=== PATIENT | female | born 1965 | race Caucasian/White ===

== ENCOUNTER 2018-11-21 17:04 | Emergency (ER) | payer SELFPAY ==
[2018-11-21] MEDS ORDERED: NA CHLORIDE 0.9% 1,000 ML ONE (17:52)
[2018-11-21 18:03] LABS: Absolute Monocytes 0.5 K/uL (0.1-1.3); Basophils % 0.8 % (0-1.3); Eosinophils % 1.4 % (0-4.4); Hematocrit 48.3 % (36.0-45.0); Lymphocytes % 26.1 % (15.3-44.8); MPV 9.6 fL (7.6-11.3); RBC Red Blood Cell Count 5.24 M/uL (3.86-4.86)
[2018-11-21 18:06] LABS: Protime INR 0.96
--- NOTE | 2018-11-21 18:11 | RAD REPORT ---
EXAM DESCRIPTION: RAD - Chest Single View - 11/21/2018 6:06 pm CLINICAL HISTORY: COUGH Chest pain. COMPARISON: No comparisons FINDINGS: Portable technique limits examination quality. The lungs are grossly clear. The heart is normal in size. No displaced fractures. IMPRESSION: No acute intrathoracic process suspected.
[2018-11-21] MEDS ORDERED: ALBUTEROL 2.5 MG/3 ML NEB SOL ONE ×2 (18:27→19:31)
[2018-11-21] MEDS ORDERED: IPRATROPIUM BROM 0.5MG/2.5ML ONE (18:27)
[2018-11-21] MEDS ORDERED: predniSONE 20 MG TAB ONE (18:27)
[2018-11-21] MEDS ORDERED: METHYLPREDNISOLONE 125 MG INJ ONE (18:27)
[2018-11-21] MEDS ORDERED: Levofloxacin500mg IV 500 MG/100 ML BAG IV ONE (18:28)
[2018-11-21 18:40] LABS: ALT/SGPT 69 U/L (12-78); AST/SGOT 71 U/L (15-37); Albumin 3.7 g/dL (3.4-5.0); Alkaline Phosphatase 137 U/L (45-117); BUN Blood Urea Nitrogen 14 mg/dL (7-18); Bicarbonate 27 mmol/L (21-32); Bilirubin Direct 0.1 mg/dL (0-0.2); Bilirubin Total 0.4 mg/dL (0.2-1.0); Glucose Level 109 mg/dL (74-106); Magnesium 2.2 mg/dL (1.8-2.4); NT PRO-BNP 351 pg/mL (<125); Potassium 4.1 mmol/L (3.5-5.1); Sodium Level 143 mmol/L (136-145); Troponin (Emerg Dept Use Only) < 0.02 ng/mL (0.0-0.045)
--- NOTE | 2018-11-21 19:09 | EDPHYS ---
Physician Documentation [facility] Name: Haleigh Torres Age: 53 yrs Sex: Female : 1965 Arrival Date: 11/21/2018 Time: 17:13 Bed 16 Private MD: ED Physician Helio Bales HPI: 11/21 17:54 This 53 yrs old Female presents to ER via EMS with complaints of Chemical kallie Inhalation. 17:54 The patient has shortness of breath with light activity. Onset: The symptoms/episode kallie began/occurred 2 day(s) ago. Duration: The symptoms are continuous, and are steadily getting worse. The patient's shortness of breath is aggravated by exertion, light activity. The patient or guardian reports cough, described as mild. Modifying factors: The symptoms are alleviated by remaining still, rest, the symptoms are aggravated by activity. Associated signs and symptoms: The patient has no apparent associated signs or symptoms. Severity of symptoms: At their worst the symptoms were moderate in the emergency department the symptoms are unchanged. 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 - Social history:: Smoking status: Patient uses tobacco products, smokes 1.5 packs per day. - Ebola Screening: : Patient negative for fever greater than or equal to 101.5 degrees Fahrenheit, and additional compatible Ebola Virus Disease symptoms. - Family history:: not pertinent. ROS: 17:54 Constitutional: Negative for fever, chills, and weight loss, Eyes: Negative for injury, kallie pain, redness, and discharge, ENT: Negative for injury, pain, and discharge, Neck: Negative for injury, pain, and swelling, Cardiovascular: Negative for chest pain, palpitations, and edema, Abdomen/GI: Negative for abdominal pain, nausea, vomiting, diarrhea, and constipation, Back: Negative for injury and pain, : Negative for injury, bleeding, discharge, and swelling, MS/Extremity: Negative for injury and deformity, Skin: Negative for injury, rash, and discoloration, Neuro: Negative for headache, weakness, numbness, tingling, and seizure, Psych: Negative for depression, anxiety, suicide ideation, homicidal ideation, and hallucinations, Allergy/Immunology: Negative for hives, rash, and allergies, Endocrine: Negative for neck swelling, polydipsia, polyuria, polyphagia, and marked weight changes, Hematologic/Lymphatic: Negative for swollen nodes, abnormal bleeding, and unusual bruising. 17:54 Respiratory: Positive for cough, shortness of breath, wheezing, inspiratory, expiratory. Exam: 17:54 Constitutional: This is a well developed, well nourished patient who is awake, alert, kallie and in no acute distress. Head/Face: Normocephalic, atraumatic. Eyes: Pupils equal round and reactive to light, extra-ocular motions intact. Lids and lashes normal. Conjunctiva and sclera are non-icteric and not injected. Cornea within normal limits. Periorbital areas with no swelling, redness, or edema. ENT: Nares patent. No nasal discharge, no septal abnormalities noted. Tympanic membranes are normal and external auditory canals are clear. Oropharynx with no redness, swelling, or masses, exudates, or evidence of obstruction, uvula midline. Mucous membranes moist. Neck: Trachea midline, no thyromegaly or masses palpated, and no cervical lymphadenopathy. Supple, full range of motion without nuchal rigidity, or vertebral point tenderness. No Meningismus. Chest/axilla: Normal chest wall appearance and motion. Nontender with no deformity. No lesions are appreciated. Cardiovascular: Regular rate and rhythm with a normal S1 and S2. No gallops, murmurs, or rubs. Normal PMI, no JVD. No pulse deficits. Abdomen/GI: Soft, non-tender, with normal bowel sounds. No distension or tympany. No guarding or rebound. No evidence of tenderness throughout. Back: No spinal tenderness. No costovertebral tenderness. Full range of motion. Skin: Warm, dry with normal turgor. Normal color with no rashes, no lesions, and no evidence of cellulitis. MS/ Extremity: Pulses equal, no cyanosis. Neurovascular intact. Full, normal range of motion. Neuro: Awake and alert, GCS 15, oriented to person, place, time, and situation. Cranial nerves II-XII grossly intact. Motor strength 5/5 in all extremities. Sensory grossly intact. Cerebellar exam normal. Normal gait. Psych: Awake, alert, with orientation to person, place and time. Behavior, mood, and affect are within normal limits. 17:54 Respiratory: mild respiratory distress is noted, Respirations: labored breathing, that is moderate, Breath sounds: decreased breath sounds, that are mild, that are moderate, rhonchi, wheezing: inspiratory expiratory Vital Signs: 17:16 BP 162 / 95; Pulse 85; Resp 20; Temp 97.7(O); Pulse Ox 100% on R/A; Weight 70.31 kg rb1 (R); Height 5 ft. 2 in. (157.48 cm) (R); Pain 0/10; 18:20 BP 160 / 89; Pulse 81; Resp 17; Pulse Ox 97% on R/A; rb1 19:30 BP 161 / 72; Pulse 110; Resp 25 S; Pulse Ox 100% ; cc3 20:20 BP 156 / 99; Pulse 106; Resp 20 S; Pulse Ox 99% on R/A; cc3 21:10 BP 143 / 87; Pulse 104; Resp 20 S; Pulse Ox 98% on R/A; cc3 17:16 Body Mass Index 28.35 (70.31 kg, 157.48 cm) rb1 19:30 on nebulization mask cc3 MDM: 17:14 Patient medically screened. [facility] 18:02 Data reviewed: vital signs, nurses notes, lab test result(s), EKG, radiologic studies, kallie ultrasound. 20:53 ED course: Lungs CTA of repeat exam. Patient exhibits no signs of resp distress. [facility] Patient was otherwise given strict return precautions. patient understood and agrees with the plan of care. . 11/21 17:25 Order name: Basic Metabolic Panel; Complete Time: 19:01 [facility] 11/21 17:25 Order name: CBC with Diff; Complete Time: 19: [facility] 11/21 17:25 Order name: LFT's; Complete Time: 19: [facility] 11/21 17:25 Order name: Magnesium; Complete Time: 19: [facility] 11/21 17:25 Order name: NT PRO-BNP; Complete Time: 19:01 [facility] 11/21 17:25 Order name: PT-INR; Complete Time: 19:01 [facility] 11/21 17:25 Order name: Troponin (emerg Dept Use Only); Complete Time: 19:01 [facility] 11/21 17:25 Order name: XRAY Chest (1 view); Complete Time: 19:01 [facility] 11/21 17:25 Order name: EKG; Complete Time: 17:26 [facility] 11/21 17:25 Order name: Cardiac monitoring; Complete Time: 17:59 [facility] 11/21 17:25 Order name: EKG - Nurse/Tech; Complete Time: 17:25 [facility] 11/21 17:25 Order name: IV Saline Lock; Complete Time: 17:58 [facility] 11/21 17:25 Order name: Labs collected and sent; Complete Time: 17:58 [facility] 11/21 17:25 Order name: O2 Per Protocol; Complete Time: 17:58 [facility] 11/21 17:25 Order name: O2 Sat Monitoring; Complete Time: 17:58 [facility] Administered Medications: 16:55 Drug: NS 0.9% 1000 ml Route: IV; Rate: 125 ml/hr; Site: left antecubital; rb1 21:20 Follow up: Response: No adverse reaction; IV Status: Order to discontinue infusion; IV cc3 Intake: 500ml ; patient discharged home 18:30 Drug: levofloxacin 500 mg Volume: 100 ml; Route: IVPB; Infused Over: 60 mins; Site: rb1 left antecubital; 19:30 Follow up: Response: No adverse reaction; IV Status: Completed infusion; IV Intake: cc3 100ml 18:30 Drug: SOLU-Medrol 125 mg Route: IVP; Site: left antecubital; rb1 19:05 Follow up: Response: No adverse reaction; Marked relief of symptoms cc3 18:30 Drug: Albuterol - atroVENT (3:1) (2.5 mg - 0.5 mg) 3 ml Route: Nebulizer; rb1 19:05 Follow up: Response: No adverse reaction cc3 18:30 Drug: predniSONE 40 mg Route: PO; rb1 19:15 Follow up: Response: No adverse reaction; Marked relief of symptoms cc3 19:23 Drug: Albuterol 5 mg Route: Inhalation; cc3 20:11 Follow up: Response: No adverse reaction; Marked relief of symptoms cc3 19:25 Drug: Magnesium Sulfate 1 grams Route: IVPB; Infused Over: 1 hrs; Site: left cc3 antecubital; 20:40 Follow up: Response: No adverse reaction; IV Status: Completed infusion; IV Intake: cc3 100ml 20:55 Drug: Xopenex 1.25 mg Route: Inhalation; cc3 21:20 Follow up: Response: No adverse reaction; Marked relief of symptoms cc3 Disposition: 11/22 07:16 Co-signature as Attending Physician, Helio Bales MD I agree with the assessment and [facility] plan of care. Disposition: 11/21/18 19:09 Discharged to Home. Impression: Chronic obstructive pulmonary disease with (acute) exacerbation, Tobacco abuse counseling, Tobacco use, Chronic obstructive pulmonary disease, unspecified. - Condition is Stable. - Discharge Instructions: Chronic Bronchitis, Chronic Obstructive Pulmonary Disease, How to Use an Inhaler, Steps to Quit Smoking, Smoking Hazards, Chronic Obstructive Pulmonary Disease, [id number], Steps to Quit Smoking, [id number]. - Prescriptions for Levaquin 500 mg Oral Tablet - take 1 tablet by ORAL route once daily for 7 days; 7 tablet. Albuterol Sulfate 2.5 mg /3 mL (0.083 %) Inhalation Solution for Nebulization - inhale 1 unit by NEBULIZATION route every 8 hours As needed; 1 box. Prednisone 20 mg Oral Tablet - take 2 tablet by ORAL route once daily for 5 days; 10 tablet. Albuterol Sulfate 90 mcg/actuation - inhale 1-2 puff by INHALATION route every 4-6 hours; 1 Inhaler. - Medication Reconciliation Form, Thank You Letter, Antibiotic Education, Prescription Opioid Use form. - Follow up: Private Physician; When: 2 - 3 days; Reason: Recheck today's complaints, Continuance of care, Re-evaluation by your physician. - Problem is new. - Symptoms have improved. Signatures: Dispatcher [employer] [facility] Helio Bales MD MD cha Mickail, Joel, PA PA jmm Barber, Rebecca, RN RN rb1 Cordel, Charlene cc3 Corrections: (The following items were deleted from the chart) 11/21 21:25 19:09 11/21/2018 19:09 Discharged to Home. Impression: Chronic obstructive pulmonary cc3 disease with (acute) exacerbation; Tobacco abuse counseling; Tobacco use; Chronic obstructive pulmonary disease, unspecified. Condition is Stable. Discharge Instructions: Chronic Bronchitis, Chronic Obstructive Pulmonary Disease, How to Use an Inhaler, Steps to Quit Smoking, Smoking Hazards, Chronic Obstructive Pulmonary Disease, [id number], Steps to Quit Smoking, [id number]-[id number]. Prescriptions for Levaquin 500 mg Oral Tablet - take 1 tablet by ORAL route once daily for 7 days; 7 tablet, Albuterol Sulfate 2.5 mg /3 mL (0.083 %) Inhalation Solution for Nebulization - inhale 1 unit by NEBULIZATION route every 8 hours As needed; 1 box, Prednisone 20 mg Oral Tablet - take 2 tablet by ORAL route once daily for 5 days; 10 tablet, Albuterol Sulfate 90 mcg/actuation - inhale 1-2 puff by INHALATION route every 4-6 hours; 1 Inhaler. and Forms are Medication Reconciliation Form, Thank You Letter, Antibiotic Education, Prescription Opioid Use. Follow up: Private Physician; When: 2 - 3 days; Reason: Recheck today's complaints, Continuance of care, Re-evaluation by your physician. Problem is new. Symptoms have improved. kallie
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
[2018-11-21] MEDS ORDERED: MAGNESIUM SULFATE 1 gm IVPB 1 GM/100 ML BAG IV ONE (19:31)
[2018-11-21] MEDS ORDERED: LEVALBUTEROL 1.25 MG/3 ML NEB ONE (21:08)
== END 2018-11-21 21:25 | disposition home or self-care (01) ==
LOC: ER 17:04
DX: J44.1 Chronic obstructive pulmonary disease with (acute) exacerbation (principal); Z72.0 Tobacco use; Z71.6 Tobacco abuse counseling
CPT/HCPCS: 36415; 71045; 80048; 80076; 83735; 83880; 84484; 85025; 85610; 93005; 94640; 96361; 96365; 96375; 99285; J2930; J3475; J7030; J7512

== ENCOUNTER 2020-02-23 10:13 | Emergency (ER) | payer SELFPAY ==
--- NOTE | 2020-02-23 11:27 | EDPHYS ---
Physician Documentation [facility] Name: Haleigh Torres Age: 54 yrs Sex: Female : 1965 Arrival Date: 02/23/2020 Time: 10:19 Bed 5 Private MD: ED Physician Sofya Berkowitz HPI: 02/22 11:24 This 54 yrs old Female presents to ER via Ambulatory with complaints of Back ma2 Pain. 11:24 The patient presents with pain that is acute. Onset: The symptoms/episode ma2 began/occurred gradually, 1 day(s) ago. Associated signs and symptoms: Pertinent negatives: chest pain, dysuria, hematuria, nausea. Severity of symptoms: At their worst the symptoms were moderate, in the emergency department the symptoms have improved. The patient has experienced similar episodes in the past. Historical: - Allergies: 11:21 No Known Allergies; ph - PMHx: 11:21 COPD; ph - PSHx: 11:21 None; ph - Immunization history:: Adult Immunizations unknown. - Social history:: Smoking status: Patient reports the use of cigarette tobacco products, smokes one-half pack cigarettes per day, Patient/guardian denies using alcohol, street drugs, The patient lives with spouse. - Family history:: not pertinent. ROS: 11:24 Constitutional: Negative for fever, chills, and weight loss. ma2 11:24 All other systems are negative. Exam: 11:24 Constitutional: This is a well developed, well nourished patient who is awake, alert, ma2 and in no acute distress. Chest/axilla: Normal chest wall appearance and motion. Nontender with no deformity. No lesions are appreciated. Cardiovascular: Regular rate and rhythm with a normal S1 and S2. No gallops, murmurs, or rubs. Normal PMI, no JVD. No pulse deficits. Respiratory: Lungs have equal breath sounds bilaterally, clear to auscultation and percussion. No rales, rhonchi or wheezes noted. No increased work of breathing, no retractions or nasal flaring. Abdomen/GI: Soft, non-tender, with normal bowel sounds. No distension or tympany. No guarding or rebound. No evidence of tenderness throughout. Back: No spinal tenderness. No costovertebral tenderness. Full range of motion. Skin: Warm, dry with normal turgor. Normal color with no rashes, no lesions, and no evidence of cellulitis. MS/ Extremity: mild ttp over right lower paraspinal muscle, no cva ttp, Pulses equal, no cyanosis. Neurovascular intact. Full, normal range of motion. Neuro: Awake and alert, GCS 15, oriented to person, place, time, and situation. Cranial nerves II-XII grossly intact. Motor strength 5/5 in all extremities. Sensory grossly intact. Cerebellar exam normal. Normal gait. Vital Signs: 11:19 BP 116 / 102; Pulse 92; Resp 18; Temp 97.9; Pulse Ox 99% on R/A; Weight 61.23 kg; ph Height 5 ft. 2 in. (157.48 cm); Pain 10/10; 11:53 BP 114 / 97; Pulse 86; Resp 18; Temp 97.9; Pulse Ox 99% on R/A; ph 11:19 Body Mass Index 24.69 (61.23 kg, 157.48 cm) ph MDM: 11:24 Patient medically screened. ma2 11:24 Differential diagnosis: Joint Injury Ligament Injury sprain. Data reviewed: vital ma2 signs, nurses notes. Counseling: I had a detailed discussion with the patient and/or guardian regarding: the historical points, exam findings, and any diagnostic results supporting the discharge/admit diagnosis, the presence of at least one elevated blood pressure reading (>120/80) during this emergency department visit, the need for outpatient follow up. Response to treatment: the patient's symptoms have markedly improved after treatment. Administered Medications: No medications were administered Disposition: 02/23/20 11:26 Discharged to Home. Impression: Low back pain. - Condition is Stable. - Discharge Instructions: Back Pain, Adult. - Prescriptions for Valium 10 mg Oral Tablet - take 1 tablet by ORAL route every 8 hours As needed; 20 tablet. Diclofenac Sodium 75 mg Oral Tablet Sustained Release - take 1 tablet by ORAL route 2 times per day; 30 tablet. Medrol (Shalom) 4 mg Oral Tablets, Dose Pack - take 1 tablet by ORAL route as directed - follow package instructions; 1 packet. - Medication Reconciliation Form, Thank You Letter, Antibiotic Education, Prescription Opioid Use form. - Follow up: Private Physician; When: Tomorrow; Reason: Continuance of care. Signatures: Mica Woods RN RN ph Sofya Berkowitz MD MD ma2 Corrections: (The following items were deleted from the chart) 11:53 11:26 02/23/2020 11:26 Discharged to Home. Impression: Low back pain. Condition is ph Stable. Forms are Medication Reconciliation Form, Thank You Letter, Antibiotic Education, Prescription Opioid Use. Follow up: Private Physician; When: Tomorrow; Reason: Continuance of care. ma2
--- NOTE | 2020-02-23 11:27 | ER ---
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 Coronavirus screen: Patient denies a cough. Patient denies shortness of breath or difficulty breathing. Patient denies measured and/or subjective temperature greater than 100.4F prior to today's visit. Patient denies travel on a cruise ship or to a country the [facility] currently lists as an affected area. Patient denies contact with known and/or suspected case of COVID-19. Ebola Screen: No symptoms or risks identified at this time. Initial Sepsis Screen: Does the patient meet any 2 criteria? No. Patient's initial sepsis screen is negative. Does the patient have a suspected source of infection? No. Patient's initial sepsis screen is negative. Risk Assessment: Do you want to hurt yourself or someone else? Patient reports no desire to harm self or others. Onset of symptoms was February 23, 2020. 11:19 Method Of Arrival: Ambulatory ph 11:19 Acuity: ANICETO 4 ph Historical: - Allergies: 11:21 No Known Allergies; ph - PMHx: 11:21 COPD; ph - PSHx: 11:21 None; ph - Immunization history:: Adult Immunizations unknown. - Social history:: Smoking status: Patient reports the use of cigarette tobacco products, smokes one-half pack cigarettes per day, Patient/guardian denies using alcohol, street drugs, The patient lives with spouse. - Family history:: not pertinent. Screenin:22 Abuse screen: Denies threats or abuse. Denies injuries from another. Nutritional ph screening: No deficits noted. Tuberculosis screening: No symptoms or risk factors identified. Fall Risk None identified. Assessment: 11:21 General: Appears in no apparent distress. comfortable, well groomed, Behavior is calm, ph cooperative, appropriate for age, Denies fever. Pain: Complains of pain in right mid back and right low back Pain does not radiate. Neuro: Level of Consciousness is awake, alert, obeys commands, Oriented to person, place, time, situation. Cardiovascular: Capillary refill < 3 seconds in bilateral fingers Patient's skin is warm and dry. Respiratory: Airway is patent Respiratory effort is even, unlabored, Respiratory pattern is regular, symmetrical. Derm: Skin is intact, is healthy with good turgor, Skin is pink, warm \\T\\ dry. Musculoskeletal: Circulation, motion, and sensation intact. Range of motion: intact in all extremities. 11:52 Reassessment: Patient appears in no apparent distress at this time. Patient and/or ph family updated on plan of care and expected duration. Pain level reassessed. Patient is alert, oriented x 3, equal unlabored respirations, skin warm/dry/pink. Pt d/c home w/ prescriptions. Vital Signs: 11:19 BP 116 / 102; Pulse 92; Resp 18; Temp 97.9; Pulse Ox 99% on R/A; Weight 61.23 kg; ph Height 5 ft. 2 in. (157.48 cm); Pain 10/10; 11:53 BP 114 / 97; Pulse 86; Resp 18; Temp 97.9; Pulse Ox 99% on R/A; ph 11:19 Body Mass Index 24.69 (61.23 kg, 157.48 cm) ph ED Course: 10:19 Patient arrived in ED. mr 11:15 Sofya Berkowitz MD is Attending Physician. ma2 11:18 Mica Woods, RN is Primary Nurse. ph 11:21 Triage completed. ph 11:21 Arm band placed on Patient placed in an exam room. ph 11:22 Patient has correct armband on for positive identification. Bed in low position. Call light in reach. Side rails up X 1. Pulse ox on. NIBP on. 11:52 No provider procedures requiring assistance completed. Patient did not have IV access ph during this emergency room visit. Administered Medications: No medications were administered Outcome: : Discharge ordered by . ma2 11:53 Discharged to home ambulatory. ph 11:53 Condition: good 11:53 Discharge instructions given to patient, Instructed on discharge instructions, follow up and referral plans. medication usage, Demonstrated understanding of instructions, follow-up care, medications, Prescriptions given X 3. 11:53 Patient left the ED. ph Signatures: Renate Sanchez Patricia, RN RN ph Sofya Berkowitz MD MD ma2
[2020-02-23 12:16] VITALS: TEMP 97.9; O2SAT 99
[2020-02-23 12:18] VITALS: BP 114/97
== END 2020-02-23 11:53 | disposition home or self-care (01) ==
LOC: ER 10:13
DX: M54.5 Low back pain (principal); F17.210 Nicotine dependence, cigarettes, uncomplicated
CPT/HCPCS: 99283

== ENCOUNTER 2020-08-24 11:15 | Emergency (ER) | payer SELFPAY ==
--- NOTE | 2020-08-24 14:36 | RAD REPORT ---
EXAM DESCRIPTION: CT - Thorax Wo Con CLINICAL HISTORY: Chest pain PAIN COMPARISON: Chest Single View dated 11/21/2018 FINDINGS: A limited noncontrast study is submitted. The lungs are clear. No pleural thickening or pleural effusion. No pneumothorax. No axillary, mediastinal or hilar adenopathy. No concerning bony finding. No gross upper abdominal finding. All CT scans are performed using dose optimization technique as appropriate and may include automated exposure control or mA/KV adjustment according to patient size. IMPRESSION: No acute intrathoracic abnormality.
[2020-08-24 16:07] LABS: SARS-COV-2 RT PCR NEGATIVE (NEGATIVE)
--- NOTE | 2020-08-24 16:13 | EDPHYS ---
Physician Documentation [facility] Name: Haleigh Torres Age: 55 yrs Sex: Female : 1965 Arrival Date: 08/24/2020 Time: 11:19 Bed 8 Private MD: ED Physician Helio Bales HPI: 08/24 14:58 This 55 yrs old Female presents to ER via Ambulatory with complaints of Body kb Aches, Breathing Difficulty. 14:58 The patient or guardian reports cough, that is intermittent, described as mild, with no kb sputum, flu symptoms, low-grade fever, myalgias. Onset: The symptoms/episode began/occurred 2 week(s) ago. Severity of symptoms: At their worst the symptoms were moderate, in the emergency department the symptoms are unchanged. Modifying factors: The symptoms are alleviated by nothing, the symptoms are aggravated by nothing. Associated signs and symptoms: Pertinent positives: chest pain, with cough, with movement. The patient has not experienced similar symptoms in the past. The patient has not recently seen a physician. Pt reports bodyaches, cough, congestion, cold for 2 weeks. Now having left lower rib pain, worse with palpation and cough. Historical: - Allergies: 12:07 No Known Allergies; ss - PMHx: 12:07 COPD; ss - Immunization history:: Adult Immunizations unknown. - Social history:: Smoking status: Patient reports the use of cigarette tobacco products, smokes one-half pack cigarettes per day. ROS: 14:55 Abdomen/GI: Negative for abdominal pain, nausea, vomiting, diarrhea, and constipation, kb Back: Negative for injury and pain, MS/Extremity: Negative for injury and deformity, Skin: Negative for injury, rash, and discoloration, Neuro: Negative for headache, weakness, numbness, tingling, and seizure. 14:55 Constitutional: Positive for body aches, chills, fatigue, fever, malaise. 14:55 ENT: Positive for rhinorrhea, sinus congestion. 14:55 Cardiovascular: Positive for chest pain, with cough, with movement. 14:55 Respiratory: Positive for cough, pleurisy, Negative for dyspnea on exertion, hemoptysis, orthopnea, shortness of breath, sputum production, wheezing. Exam: 14:55 Constitutional: This is a well developed, well nourished patient who is awake, alert, kb and in no acute distress. Head/Face: Normocephalic, atraumatic. Cardiovascular: Regular rate and rhythm with a normal S1 and S2. No gallops, murmurs, or rubs. Normal PMI, no JVD. No pulse deficits. Respiratory: Lungs have equal breath sounds bilaterally, clear to auscultation and percussion. No rales, rhonchi or wheezes noted. No increased work of breathing, no retractions or nasal flaring. Abdomen/GI: Soft, non-tender, with normal bowel sounds. No distension or tympany. No guarding or rebound. No evidence of tenderness throughout. Skin: Warm, dry with normal turgor. Normal color with no rashes, no lesions, and no evidence of cellulitis. MS/ Extremity: Pulses equal, no cyanosis. Neurovascular intact. Full, normal range of motion. Neuro: Awake and alert, GCS 15, oriented to person, place, time, and situation. Cranial nerves II-XII grossly intact. Motor strength 5/5 in all extremities. Sensory grossly intact. Cerebellar exam normal. Normal gait. 14:55 Chest/axilla: Inspection: normal, Palpation: tenderness, that is moderate, of the left lateral anterior chest, that totally reproduces the patient's complaints. Vital Signs: 12:05 BP 159 / 94; Pulse 89; Resp 19; Temp 97.6(TE); Pulse Ox 97% ; Weight 68.04 kg; Height 5 ss ft. 2 in. (157.48 cm); Pain 10/10; 12:05 Body Mass Index 27.44 (68.04 kg, 157.48 cm) ss MDM: 13:[address] [facility] 14:51 Data reviewed: vital signs, nurses notes. Data interpreted: Pulse oximetry: on room air kb is 97 %. Interpretation: normal. 16:11 Counseling: I had a detailed discussion with the patient and/or guardian regarding: the kb historical points, exam findings, and any diagnostic results supporting the discharge/admit diagnosis, lab results, radiology results, the need for outpatient follow up, a family practitioner, to return to the emergency department if symptoms worsen or persist or if there are any questions or concerns that arise at home. 08/24 14:05 Order name: Chest Wo Con CT; Complete Time: 14:45 kb 08/24 16:08 Order name: COVID-19/FLU A+B; Complete Time: 16:10 EDMS Administered Medications: 16:32 Drug: predniSONE 40 mg Route: PO; sv 16:32 Follow up: Response: No adverse reaction; Medication administered at discharge. sv Disposition: 08/25 08:35 Co-signature as Attending Physician, Helio Bales MD I agree with the assessment and kallie plan of care. Disposition: 08/24/20 16:12 Discharged to Home. Impression: Chronic obstructive pulmonary disease, unspecified, Pleurisy. - Condition is Stable. - Discharge Instructions: Chronic Obstructive Pulmonary Disease, Pleurisy, [id number]. - Prescriptions for Prednisone 20 mg Oral Tablet - take 1 tablet by ORAL route once daily for 5 days; 5 tablet. Albuterol Sulfate 90 mcg/actuation - inhale 1-2 puff by INHALATION route every 4-6 hours; 1 Inhaler. - Medication Reconciliation Form, Thank You Letter, Antibiotic Education, Prescription Opioid Use, Work release form form. - Follow up: Emergency Department; When: As needed; Reason: Worsening of condition. Follow up: Private Physician; When: 2 - 3 days; Reason: Recheck today's complaints, Continuance of care, Re-evaluation by your physician. Signatures: Dispatcher [employer] [facility] Lizzy Guardado, YARED-Eldon VAIL-Steffi Payne, Helio Javier RN, MD MD cha Smirch, Shelby, RN RN ss Corrections: (The following items were deleted from the chart) 08/24 15:10 14:05 CORONAVIRUS+MR.LAB.BRZ ordered. [facility] 15:10 14:05 Influenza Screen (A \T\ B)+BA.LAB.BRZ ordered. [facility] 16:33 16:12 08/24/2020 16:12 Discharged to Home. Impression: Chronic obstructive pulmonary sv disease, unspecified; Pleurisy. Condition is Stable. Forms are Medication Reconciliation Form, Thank You Letter, Antibiotic Education, Prescription Opioid Use. Follow up: Emergency Department; When: As needed; Reason: Worsening of condition. Follow up: Private Physician; When: 2 - 3 days; Reason: Recheck today's complaints, Continuance of care, Re-evaluation by your physician. kb
--- NOTE | 2020-08-24 16:13 | ER ---
Nurse's Notes [facility] Name: Haleigh Torres Age: 55 yrs Sex: Female : 1965 Arrival Date: 08/24/2020 Time: 11:19 Bed 8 Private MD: Diagnosis: Chronic obstructive pulmonary disease, unspecified;Pleurisy Presentation: 08/24 12:05 Chief complaint: Patient states: LUQ pain that began 2 days ago. Also c/o intermittent ss nausea. Cough x 2 weeks. Coronavirus screen: Client denies travel out of the [place] in the last 14 days. cough unrelated to allergies, muscle pain, Client presents with at least one sign or symptom that may indicate coronavirus-19. Standard/surgical mask placed on the client. Ebola Screen: Patient denies exposure to infectious person. Patient denies travel to an Ebola-affected area in the 21 days before illness onset. Initial Sepsis Screen: Does the patient meet any 2 criteria? No. Patient's initial sepsis screen is negative. Does the patient have a suspected source of infection? No. Patient's initial sepsis screen is negative. Risk Assessment: Do you want to hurt yourself or someone else? Patient reports no desire to harm self or others. Onset of symptoms was August 22, 2020. 12:05 Method Of Arrival: Ambulatory ss 12:05 Acuity: ANICETO 3 ss Historical: - Allergies: 12:07 No Known Allergies; ss - PMHx: 12:07 COPD; ss - Immunization history:: Adult Immunizations unknown. - Social history:: Smoking status: Patient reports the use of cigarette tobacco products, smokes one-half pack cigarettes per day. Screenin:20 Abuse screen: Denies threats or abuse. Denies injuries from another. Nutritional sv screening: No deficits noted. Tuberculosis screening: No symptoms or risk factors identified. Fall Risk None identified. Assessment: 14:20 General: Appears in no apparent distress. comfortable, well developed, Behavior is sv calm, cooperative, appropriate for age. General: Reports bodyaches. Pain: Complains of pain in left lateral anterior chest Pain currently is 10 out of 10 on a pain scale. Is intermittent, Aggravated by deep breathing. Neuro: Level of Consciousness is awake, alert, obeys commands, Oriented to person, place, time, situation, Moves all extremities. Full function Gait is steady, Speech is normal. Cardiovascular: Patient's skin is warm and dry. Respiratory: Airway is patent Respiratory effort is even, unlabored, Respiratory pattern is regular, symmetrical. Derm: Skin is pink, warm \T\ dry. 16:32 Reassessment: Patient appears in no apparent distress at this time. No changes from sv previously documented assessment. Patient and/or family updated on plan of care and expected duration. Pain level reassessed. Patient is alert, oriented x 3, equal unlabored respirations, skin warm/dry/pink. Vital Signs: 12:05 BP 159 / 94; Pulse 89; Resp 19; Temp 97.6(TE); Pulse Ox 97% ; Weight 68.04 kg; Height 5 ss ft. 2 in. (157.48 cm); Pain 10/10; 12:05 Body Mass Index 27.44 (68.04 kg, 157.48 cm) ss ED Course: 11:19 Patient arrived in ED. rg4 12:07 Triage completed. ss 12:07 Arm band placed on right wrist. ss 12:18 Lizzy Guardado FNP-C is [facility]. kb 12:18 Helio Bales MD is Attending Physician. kb 13:57 Steffi Sheriff, FELIX is Primary Nurse. sv 14:20 Patient has correct armband on for positive identification. Bed in low position. Call sv light in reach. 14:20 COVID swab sent to lab. Flu and/or RSV swab sent to lab. sv 14:[address] In Process Unspecified. EDMS 16:33 No provider procedures requiring assistance completed. Patient did not have IV access sv during this emergency room visit. Administered Medications: 16:32 Drug: predniSONE 40 mg Route: PO; sv 16:32 Follow up: Response: No adverse reaction; Medication administered at discharge. sv Outcome: 16:12 Discharge ordered by MD. kb 16:33 Discharged to home ambulatory. sv 16:33 Condition: stable 16:33 Discharge instructions given to patient, Instructed on discharge instructions, follow up and referral plans. medication usage, Demonstrated understanding of instructions, follow-up care, medications, Prescriptions given X 2. 16:33 Patient left the ED. sv Signatures: Dispatcher [employer] [facility]IN Lizzy Guardado FNP-C FNP-Ckb Verde, Stephanie, RN RN Natalya Lund RN RN Theodore, Caroline rg4
[2020-08-24] MEDS ORDERED: predniSONE 20 MG TAB ONE (16:43)
[2020-08-24 16:53] VITALS: BP 159/94; TEMP 97.6; O2SAT 97
== END 2020-08-24 16:33 | disposition home or self-care (01) ==
LOC: ER 11:15
DX: J44.9 Chronic obstructive pulmonary disease, unspecified (principal); R09.1 Pleurisy; Z20.828 Contact with and (suspected) exposure to other viral communicable diseases; F17.210 Nicotine dependence, cigarettes, uncomplicated
CPT/HCPCS: 0240U; 71250; 99284; J7512

== ENCOUNTER 2021-01-28 08:47 | Inpatient (IN) | payer SELFPAY ==
[2021-01-28 09:35] LABS: Absolute Lymphocytes (CBC) 1.4 K/uL (0.7-4.9); Basophils % 0.6 % (0-1.3); Lymphocytes % 23.2 % (15.3-44.8); MPV 9.6 fL (7.6-11.3); RBC Red Blood Cell Count 5.07 M/uL (3.86-4.86)
[2021-01-28] MEDS ORDERED: METHYLPREDNISOLONE 125 MG INJ ONE (09:43)
[2021-01-28] MEDS ORDERED: LEVALBUTEROL 1.25 MG/3 ML NEB ONE (09:43)
[2021-01-28 09:57] LABS: BUN Blood Urea Nitrogen 12 mg/dL (7-18); Bicarbonate 24 mmol/L (21-32); Glucose Level 127 mg/dL (74-106); NT PRO-BNP 302 pg/mL (<125); Potassium 3.8 mmol/L (3.5-5.1); Sodium Level 138 mmol/L (136-145); Troponin (Emerg Dept Use Only) < 0.02 ng/mL (0.0-0.045)
[2021-01-28] MEDS ORDERED: MEPERIDINE HCL 25 MG/ML SYR ONE (10:22)
--- NOTE | 2021-01-28 10:46 | RAD REPORT ---
EXAM DESCRIPTION: CT - Chest For Pe Angio - 01/28/2021 10:29 am CLINICAL HISTORY: Chest pain;Dyspnea;COPD COMPARISON: Thorax Wo Con dated 08/24/2020; Chest Single View dated 01/28/2021 TECHNIQUE: Dynamically enhanced 3 mm thick images of the chest were obtained during administration o f approximately 150mL Isovue 370 IV contrast. Coronal and oblique MIP reconstruction images were gene rated and reviewed. Exam utilizes a protocol to evaluate the pulmonary arterial tree. All CT scans are performed using dose optimization technique as appropriate and may include automated exposure control or mA/KV adjustment according to patient size. FINDINGS: No pulmonary emboli are identified. The aorta as imaged shows no acute or suspicious finding. No pericardial thickening or effusion. No focal mass or consolidation identified. Bronchial wall thickening is present. Interstitial marking s are mildly prominent. No pleural effusion or pleural thickening. No mediastinal or hilar suspicious masses. No chest wall masses or abnormal axillary lymphadenopathy. IMPRESSION: No pulmonary emboli identified. Bronchial wall thickening is seen without endobronchial lesion. Bronchitis or viral infiltrate suspec mohan.
[2021-01-28] MEDS ORDERED: NA CHLORIDE 0.9% 1,000 ML ONE (10:47)
[2021-01-28] MEDS ORDERED: HYDROCODONE/CHLORPHEN 5 ML/OSYR ONE (11:30)
--- NOTE | 2021-01-28 11:37 | EDPHYS ---
Physician Documentation [facility] Name: Haleigh Torres Age: 55 yrs Sex: Female : 1965 Arrival Date: 01/28/2021 Time: 08:49 Bed 19 Private MD: ED Physician Karthikeyan Diehl HPI: 01/28 09:10 This 55 yrs old Female presents to ER via Ambulatory with complaints of rn Breathing Difficulty, Cough. 09:10 The patient has shortness of breath with light activity. Onset: The symptoms/episode rn began/occurred yesterday. Duration: The symptoms are continuous. The patient's shortness of breath is aggravated by exertion, light activity, walking. Associated signs and symptoms: Pertinent positives: non-productive cough, fever, Pertinent negatives: hemoptysis. Severity of symptoms: At their worst the symptoms were mild in the emergency department the symptoms are unchanged. The patient has experienced similar episodes in the past. The patient has not recently seen a physician. 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 - Social history:: Smoking status: Patient reports the use of cigarette tobacco products, smokes one-half pack cigarettes per day, Smoking status: Patient reports the use of cigarette tobacco products, smokes one-half pack cigarettes per day. - Family history:: not pertinent. - Hospitalizations: : No recent hospitalization is reported. ROS: 09:10 Constitutional: + fever Eyes: Negative for injury, pain, redness, and discharge, ENT: + rn nasal congestion Neck: Negative for injury, pain, and swelling, Cardiovascular: Negative for chest pain, palpitations, and edema, Respiratory: + cough and sob Abdomen/GI: Negative for abdominal pain, nausea, vomiting, diarrhea, and constipation, Back: Negative for injury and pain, : Negative for injury, bleeding, discharge, and swelling, MS/Extremity: Negative for injury and deformity, Skin: Negative for injury, rash, and discoloration, Neuro: Negative for headache, weakness, numbness, tingling, and seizure. Exam: 09:10 Constitutional: This is a well developed, well nourished patient who is awake, alert, rn and in no acute distress. Ambulatory to room without assistance Head/Face: Normocephalic, atraumatic. Eyes: Periorbital areas with no swelling, redness, or edema. ENT: No stridor Cardiovascular: Tachycardic, regular. No pulse deficits. Respiratory: + mild tachypnea with wheezing bilaterally, no retractions. Abdomen/GI: soft, non-tender Skin: Warm, dry, no cyanosis MS/ Extremity: Pulses equal, no cyanosis. Neuro: Awake and alert, GCS 15, oriented to person, place, time, and situation. Cranial nerves II-XII grossly intact. Motor strength 5/5 in all extremities. Sensory grossly intact. Cerebellar exam normal. Normal gait. Vital Signs: 08:59 BP 159 / 96; Pulse 124; Resp 29 S; Temp 98.3(TE); Pulse Ox 98% on R/A; Weight 63.5 kg jd3 (R); Height 5 ft. 2 in. (157.48 cm) (R); Pain 3/10; 09:33 BP 132 / 95; Pulse 114; Resp 27 S; Pulse Ox 100% on Nebulizer Mask; jd3 11:05 BP 146 / 83; Pulse 111; Resp 26 S; Pulse Ox 95% on R/A; jd3 12:12 BP 122 / 99; Pulse 104; Resp 24 S; Pulse Ox 95% on R/A; jd3 13:12 BP 138 / 92; Pulse 100; Resp 25 S; Pulse Ox 95% on R/A; jd3 08:59 Body Mass Index 25.60 (63.50 kg, 157.48 cm) jd3 MDM: 08:51 Patient medically screened. rn 11:33 Differential diagnosis: Chronic Obstructive Pulmonary Disease Myocardial Infarction rn pneumonia, Pneumothorax pulmonary edema, Pulmonary Embolism reactive airway disease. Data reviewed: vital signs, nurses notes, lab test result(s), EKG, radiologic studies, CT scan, plain films, and as a result, I will admit patient. Counseling: I had a detailed discussion with the patient and/or guardian regarding: the historical points, exam findings, and any diagnostic results supporting the discharge/admit diagnosis, lab results, radiology results, the need for further work-up and treatment in the hospital. Response to treatment: the patient's symptoms have mildly improved after treatment, and as a result, I will admit patient. Admission orders: after a detailed discussion of the patient's condition and case, the admit orders are written by me. ED course: Pt still with abnormal vital signs, tachypnea and reports persistent dyspnea despite treatment here. CT PE neg, COVID neg, will admit to hospitalist service for further care. . 01/28 08:57 Order name: Blood Culture Adult (2) rn 01/28 08:57 Order name: BMP rn 01/28 08:57 Order name: CBC with Diff rn 01/28 08:57 Order name: NT PRO-BNP rn 01/28 08:57 Order name: Troponin (emerg Dept Use Only); Complete Time: 09:58 rn 01/28 08:57 Order name: Flu; Complete Time: 11:08 rn 01/28 08:57 Order name: Strep; Complete Time: 11:08 rn 01/28 08:58 Order name: Blood Culture EDMS 01/28 08:58 Order name: Basic Metabolic Panel; Complete Time: 09:58 EDMS 01/28 08:58 Order name: CBC with Automated Diff; Complete Time: 09:44 EDMS 01/28 08:58 Order name: NT PRO-BNP; Complete Time: 09:58 EDMS 01/28 10:58 Order name: Throat Culture EDMS 01/28 11:20 Order name: SARS-COV-2 RT PCR; Complete Time: 11:21 EDMS 01/28 08:57 Order name: XRAY CXR (1 view) rn 01/28 08:57 Order name: EKG; Complete Time: 08:58 rn 01/28 08:57 Order name: Cardiac monitoring; Complete Time: 09:21 rn 01/28 08:57 Order name: EKG - Nurse/Tech; Complete Time: 09:21 rn 01/28 08:57 Order name: IV Saline Lock; Complete Time: 09:21 rn 01/28 08:57 Order name: Labs collected and sent; Complete Time: 09:21 rn 01/28 08:57 Order name: O2 Per Protocol; Complete Time: 09:21 rn 01/28 08:57 Order name: O2 Sat Monitoring; Complete Time: :21 rn 01/28 09:59 Order name: CT Chest For PE Angio; Complete Time: 11:08 rn Administered Medications: 09:32 Drug: SOLU-Medrol (methylPrednisoLONE) 125 mg Route: IVP; Site: right antecubital; jd3 09:32 Drug: Xopenex (levalbuterol) (3) 1.25 mg Route: Inhalation; jd3 10:30 Follow up: Response: No adverse reaction jd3 10:06 Drug: Demerol (meperidine) 25 mg Route: IVP; Site: right antecubital; jd3 10:37 Follow up: Response: No adverse reaction; RASS: Alert and Calm (0) jd3 10:37 Drug: NS 0.9% 1000 ml Route: IV; Rate: 1000 ml; Site: right antecubital; jd3 11:37 Follow up: Response: No adverse reaction; IV Status: Completed infusion; IV Intake: jd3 1000ml 11:12 Drug: Tussionex Pennkinetic ER (chlorpheniramine-hydrocodone) 5 ml Route: PO; jd3 12:12 Follow up: Response: No adverse reaction; RASS: Alert and Calm (0) jd3 11:50 Drug: Magnesium Sulfate 1 grams Route: IVPB; Infused Over: 1 hrs; Site: right jd3 antecubital; 12:50 Follow up: Response: No adverse reaction; IV Status: Completed infusion jd3 Disposition: 11:35 Critical Care:. rn Disposition: 01/28/21 11:36 Hospitalization ordered by Serge Diehl for Observation. Preliminary diagnosis is Chronic obstructive pulmonary disease with (acute) exacerbation. - Bed requested for Telemetry/MedSurg (observation). - Status is Observation. jd3 - Condition is Stable. - Problem is an acute exacerbation. - Symptoms have improved. Critical care time excluding procedures: 11:35 Critical care time: Bedside Care: 30 minutes. Total time: 30 minutes rn Signatures: Dispatcher [employer] Anitha Ponce RN RN iw Nieto, Roman, MD MD rn Wise, Tara, RN RN tw2 Felipe Garcia RN RN jgladis Corrections: (The following items were deleted from the chart) 10:26 08:58 CORONAVIRUS+MR.LAB.BRZ ordered. EDMS AGUILARMS 13:12 11:36 Hospitalization Ordered by Serge Diehl MD for Observation. Preliminary iw diagnosis is Chronic obstructive pulmonary disease with (acute) exacerbation. Bed requested for Telemetry/MedSurg (observation). Status is Observation. Condition is Stable. Problem is an acute exacerbation. Symptoms have improved. rn 13:58 13:12 01/28/2021 11:36 Hospitalization Ordered by Serge Diehl MD for Observation. jd3 Preliminary diagnosis is Chronic obstructive pulmonary disease with (acute) exacerbation. Bed requested for Telemetry/MedSurg (observation). Status is Observation. Condition is Stable. Problem is an acute exacerbation. Symptoms have improved. iw
--- NOTE | 2021-01-28 11:37 | ER ---
Nurse's Notes [facility] Name: Haleigh Torres Age: 55 yrs Sex: Female : 1965 Arrival Date: 01/28/2021 Time: 08:49 Bed 19 Private MD: Diagnosis: Chronic obstructive pulmonary disease with (acute) exacerbation Presentation: 01/28 08:57 Chief complaint: Patient states: "I am coughing a lot and having some shortness of jd3 breath with some body aches. i had a fever today and today it is better.". Coronavirus screen: cough unrelated to allergies, difficulty breathing, fever, Client presents with at least one sign or symptom that may indicate coronavirus-19. Standard/surgical mask placed on the client. Provider contacted for isolation considerations. Ebola Screen: Patient negative for fever greater than or equal to 101.5 degrees Fahrenheit, and additional compatible Ebola Virus Disease symptoms. Initial Sepsis Screen: Does the patient meet any 2 criteria? No. Patient's initial sepsis screen is negative. Does the patient have a suspected source of infection? No. Patient's initial sepsis screen is negative. Risk Assessment: Do you want to hurt yourself or someone else? Patient reports no desire to harm self or others. Onset of symptoms was January 27, 2021. 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 - Social history:: Smoking status: Patient reports the use of cigarette tobacco products, smokes one-half pack cigarettes per day, Smoking status: Patient reports the use of cigarette tobacco products, smokes one-half pack cigarettes per day. - Family history:: not pertinent. - Hospitalizations: : No recent hospitalization is reported. Screenin:56 Abuse screen: Denies threats or abuse. Nutritional screening: No deficits noted. tw2 Tuberculosis screening: No symptoms or risk factors identified. Fall Risk None identified. Assessment: 08:55 Reassessment: provider at bedside at this time. tw2 09:00 General: Appears in no apparent distress. comfortable, Behavior is calm, cooperative, jd3 appropriate for age. Pain: Complains of pain in right ear, left ear and chest Quality of pain is described as aching. Neuro: Level of Consciousness is awake, alert, obeys commands, Oriented to person, place, time, situation. Cardiovascular: Capillary refill < 3 seconds Patient's skin is warm and dry. Rhythm is irregular. Respiratory: Reports shortness of breath cough that is persistent Airway is patent Respiratory effort is even, unlabored, Respiratory pattern is regular, symmetrical, the patient has mild shortness of breath. GI: No signs and/or symptoms were reported involving the gastrointestinal system. : No signs and/or symptoms were reported regarding the genitourinary system. EENT: Reports pain in left ear and right ear. Derm: Skin is intact, Skin is dry, Skin is normal, Skin temperature is warm. Musculoskeletal: Circulation, motion, and sensation intact. Range of motion: intact in all extremities. 09:33 Reassessment: No changes from previously documented assessment. Patient and/or family jd3 updated on plan of care and expected duration. Pain level reassessed. Patient is alert, oriented x 3, equal unlabored respirations, skin warm/dry/pink. 11:06 Reassessment: Patient appears in no apparent distress at this time. No changes from jd3 previously documented assessment. Patient and/or family updated on plan of care and expected duration. Pain level reassessed. Patient is alert, oriented x 3, equal unlabored respirations, skin warm/dry/pink. 12:12 Reassessment: Patient appears in no apparent distress at this time. Patient and/or jd3 family updated on plan of care and expected duration. Pain level reassessed. Patient is alert, oriented x 3, equal unlabored respirations, skin warm/dry/pink. hospitalist at bedside. Vital Signs: 08:59 BP 159 / 96; Pulse 124; Resp 29 S; Temp 98.3(TE); Pulse Ox 98% on R/A; Weight 63.5 kg jd3 (R); Height 5 ft. 2 in. (157.48 cm) (R); Pain 3/10; 09:33 BP 132 / 95; Pulse 114; Resp 27 S; Pulse Ox 100% on Nebulizer Mask; jd3 11:05 BP 146 / 83; Pulse 111; Resp 26 S; Pulse Ox 95% on R/A; jd3 12:12 BP 122 / 99; Pulse 104; Resp 24 S; Pulse Ox 95% on R/A; jd3 13:12 BP 138 / 92; Pulse 100; Resp 25 S; Pulse Ox 95% on R/A; jd3 08:59 Body Mass Index 25.60 (63.50 kg, 157.48 cm) jd3 ED Course: 08:49 Patient arrived in ED. mr 08:51 Karthikeyan Diehl MD is Attending Physician. rn 08:56 Felipe Garcia RN is Primary Nurse. jd3 08:58 Triage completed. jd3 09:00 Arm band placed on. jd3 09:01 Patient has correct armband on for positive identification. Bed in low position. Call jd3 light in reach. Side rails up X 1. patient monitor on. Pulse ox on. NIBP on. 09:22 Inserted saline lock: 20 gauge in right antecubital area, using aseptic technique. jd3 Blood collected. 09:55 XRAY CXR (1 view) In Process Unspecified. EDMS 10:29 CT Chest For PE Angio In Process Unspecified. EDMS 11:35 Serge Diehl MD is Hospitalizing Provider. rn 13:19 No provider procedures requiring assistance completed. Patient admitted, IV remains in jd3 place. Administered Medications: 09:32 Drug: SOLU-Medrol (methylPrednisoLONE) 125 mg Route: IVP; Site: right antecubital; jd3 09:32 Drug: Xopenex (levalbuterol) (3) 1.25 mg Route: Inhalation; jd3 10:30 Follow up: Response: No adverse reaction jd3 10:06 Drug: Demerol (meperidine) 25 mg Route: IVP; Site: right antecubital; jd3 10:37 Follow up: Response: No adverse reaction; RASS: Alert and Calm (0) jd3 10:37 Drug: NS 0.9% 1000 ml Route: IV; Rate: 1000 ml; Site: right antecubital; jd3 11:37 Follow up: Response: No adverse reaction; IV Status: Completed infusion; IV Intake: jd3 1000ml 11:12 Drug: Tussionex Pennkinetic ER (chlorpheniramine-hydrocodone) 5 ml Route: PO; jd3 12:12 Follow up: Response: No adverse reaction; RASS: Alert and Calm (0) jd3 11:50 Drug: Magnesium Sulfate 1 grams Route: IVPB; Infused Over: 1 hrs; Site: right jd3 antecubital; 12:50 Follow up: Response: No adverse reaction; IV Status: Completed infusion jd3 Intake: 11:37 IV: 1000ml; Total: 1000ml. jd3 Outcome: 11:36 Decision to Hospitalize by Provider. rn 13:19 Admitted to Med/surg accompanied by tech, via wheelchair, room 407, with chart, Report jd3 called to Maggy [place] 13:19 Condition: stable 13:19 Instructed on the need for admit. 13:58 Patient left the ED. jd3 Signatures: Dispatcher [employer] ARTUR SanchezRenate zhang Karthikeyan Diehl MD MD rn Wise, Tara, RN RN tw2 Felipe Garcia RN RN jgladis Corrections: (The following items were deleted from the chart) 13:19 08:59 BP 159 / 96; Pulse 124bpm; Resp 19bpm; Spontaneous; Pulse Ox 98% RA; Temp 98.3F jd3 Temporal; 63.5 kg Reported; Height 5 ft. 2 in. Reported; BMI: 25.6; Pain 3/10; jd3 13:21 13:19 Admitted to [facility] j 13:23 13:19 Admitted to [facility] j
--- NOTE | 2021-01-28 11:58 | RAD REPORT ---
EXAM DESCRIPTION: RAD - Chest Single View - 01/28/2021 9:55 am CLINICAL HISTORY: COPD;Cough COMPARISON: Portable November 2018 TECHNIQUE: AP portable chest image was obtained 01/28/2021 9:55 am . FINDINGS: No peripheral mass or consolidation. Prominent interstitial pattern matches comparison. Fu llness of the left hilum is similar to the comparison. Heart and vasculature are normal. No measurabl e pleural effusion and no pneumothorax. No acute bony abnormality seen. No acute aortic findings susp ected. IMPRESSION: No focal lung parenchymal process seen. Prominent baseline interstitial pattern is present and this could potentially mask viral infiltrate o r mild interstitial edema.
[2021-01-28] MEDS ORDERED: MAGNESIUM SULFATE 1 gm IVPB 1 GM/100 ML BAG IV ONE (12:01)
--- NOTE | 2021-01-28 12:15 | P.HP ---
Certification for Inpatient Patient admitted to: Observation With expected LOS: <2 Midnights Patient will require the following post-hospital care: None Practitioner: I am a practitioner with admitting privileges, knowledge of patient current condition, hospital course, and medical plan of care. Services: Services provided to patient in accordance with Admission requirements found in Title 42 Section 412.3 of the Code of Federal Regulations Patient History Date of Service: 01/28/21 Primary Care Provider: none Reason for admission: COPD Exacerbation History of Present Illness: 55yo F, PMH: COPD, presents to ED due to 2 days of worsening cough, shortness of breath, wheeze. Patient states this began when she was outside while it was raining. 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 Tmax: 101.6 yesterday, 99.6 today. Has been using her albuterol inhaler/nebulizer at home with minimal help. She denies any sick contacts, no nausea/vomiting, mild loose stool, no abd pain, no chest pain, +rib soreness from coughing. Reports cough is dry, no sputum production, but feels like something is in her chest. In the ED, she was noted to be tachycardic, tachypneic, and requiring 2L NC. She had minimal improvement with breathing treatments and steroids in the ED. She remained tachycardic and tachypneic. CTA chest was negative for PE, revealed some possible bronchitis, no pneumonia, no effusion. ER physician recommended further management in the hospital. Home medications list reviewed: Yes (Albuterol inhaler) - Past Medical/Surgical History Diabetic: No -: COPD Past Surgical History: Patient denies surgical history - Family History Sister -: Heart disease, Diabetes, Cancer - Social History Smoking Status: Current every day smoker (1/2 ppd) Counseled patient to stop smoking for: more than 10 minutes CD- Drugs: No Place of Residence: Home Review of Systems 10-point ROS is otherwise unremarkable Physical Examination - Physical Exam General: Alert, Oriented x3, Mild distress HEENT: EOMI, Sclerae nonicteric Neck: Supple, No LAD Respiratory: Diminished, Expiratory wheezes Cardiovascular: No edema, Normal S1 S2, Other (sinus tachycadia) Gastrointestinal: Soft and benign, Non-distended, No tenderness Musculoskeletal: No swelling, No tenderness Integumentary: No rashes Neurological: Normal speech, Normal affect - Studies Laboratory Data (last 24 hrs) 01/28/21 09:15: WBC 6.00, Hgb 15.6 H, Hct 46.0 H, Plt Count 108 L 01/28/21 09:15: Sodium 138, Potassium 3.8, BUN 12, Creatinine 1.02, Glucose 127 H Microbiology Data (last 24 hrs): 01/28/21 09:15 Nasopharnyx Influenza Type A Antigen Screen - Final 01/28/21 09:15 Nasopharnyx Influenza Type B Antigen Screen - Final 01/28/21 09:15 Throat Group A Streptococcus Rapid Screen - Final Assessment and Plan - Advance Directives Does patient have a Living Will: No Does patient have a Durable POA for Healthcare: No Physician Review Additional Text: Problem List Acute on chronic COPD exacerbation -exacerbation likely triggered from this viral bronchitis -received solumedrol and nebulizers in ED with minimal-mild improvement -continue steroids, nebs, add dulera inhaler -mucinex, tessalon perles -no antibiotic at this time -wean O2 as tolerated -counselled on smoking cessation -monitor on telemetry -SW consulted for resources, pt with low income / no insurance Code: full VTE: lovenox Dispo: anticipate dc home in ~24hrs Time Spent Managing Pts Care (In Minutes): 60
[2021-01-28] MEDS ORDERED: ONDANSETRON 4 MG/2 ML VIAL IV PRN (14:11)
[2021-01-28] MEDS ORDERED: ALBUTEROL 2.5 MG/3 ML NEB SOL NEB SCH (14:11)
[2021-01-28] MEDS: IPRATROPIUM BROM 0.5MG/2.5ML NEB SCH ×2 (14:11→20:18)
[2021-01-28] MEDS ORDERED: BENZONATATE 100 MG CAP PO PRN (14:11)
[2021-01-28 14:41] VITALS: BMI 25.9
[2021-01-28] MEDS ORDERED: POTASSIUM 25 MEQ EFFERV TAB PO ONE (15:00)
[2021-01-28] MEDS: ENOXAPARIN 40 MG/0.4 ML SQ SCH (15:50)
[2021-01-28] MEDS: GUAIFENESIN 600 MG SA TAB PO SCH ×2 (15:50→21:33)
[2021-01-28] MEDS ORDERED: PNEUMOCOCCAL VACCINE 0.5 ML IMVAC ONE (16:00)
--- NOTE | 2021-01-28 16:00 | EKG ---
Test Date: 2021-01-28 Test Time: 09:21:15 [place]: MARIO MEASUREMENT RESULTS: Intervals: Rate: 115 UT: 134 QRSD: 60 QT: 310 QTc: 428 [place]: P: 84 UT: 134 QRS: 67 T: 67 INTERPRETIVE STATEMENTS: Sinus tachycardia Biatrial enlargement Nonspecific ST abnormality Abnormal ECG Compared to ECG 11/21/2018 17:12:43 Atrial abnormality now present ST (T wave) deviation now present Sinus rhythm no longer present Electronically Signed On 01-28-21 15:59:56 CDT by Jacob Madrid
[2021-01-28] MEDS ORDERED: ACETAMINOPHEN 500 MG TAB PO PRN (16:06)
[2021-01-28] MEDS ORDERED: IBUPROFEN 400 MG TAB PO PRN (16:06)
[2021-01-28] MEDS: METHYLPREDNISOLONE 40 MG INJ IV SCH (17:00)
[2021-01-28] MEDS ORDERED: ALBUTEROL 2.5 MG/3 ML NEB SOL NEB PRN (17:56)
[2021-01-28] MEDS: DULERA 100/5 (MOMETASONE/FORMOTEROL) INHALER IH SCH (21:33)
[2021-01-29] MEDS: METHYLPREDNISOLONE 40 MG INJ IV SCH ×2 (01:56→09:00)
[2021-01-29] MEDS: IPRATROPIUM BROM 0.5MG/2.5ML NEB SCH ×2 (02:16→08:10)
[2021-01-29 04:22] LABS: Absolute Lymphocytes (CBC) 0.6 K/uL (0.7-4.9); Basophils % 0.3 % (0-1.3); Hematocrit 43.8 % (36.0-45.0); Lymphocytes % 13.1 % (15.3-44.8); MPV 9.9 fL (7.6-11.3); RBC Red Blood Cell Count 4.76 M/uL (3.86-4.86)
[2021-01-29 04:42] LABS: Magnesium 2.6 mg/dL (1.8-2.4); Potassium 4.8 mmol/L (3.5-5.1)
[2021-01-29 06:09] VITALS: O2SAT 93
[2021-01-29 08:12] VITALS: BP 137/88; TEMP 98.1
--- NOTE | 2021-01-29 08:52 | P.DS ---
Admission Date: 01/28/21 Discharge Date: 01/29/21 Primary Care Provider: none Disposition: ROUTINE DISCHARGE Discharge Condition: GOOD Reason for Admission: COPD Exacerbation Procedures: CXR (01/28): FINDINGS: No peripheral mass or consolidation. Prominent interstitial pattern matches comparison. Fullness of the left hilum is similar to the comparison. Heart and vasculature are normal. No measurable pleural effusion and no pneumothorax. No acute bony abnormality seen. No acute aortic findings suspected. IMPRESSION: No focal lung parenchymal process seen. Prominent baseline interstitial pattern is present and this could potentially mask viral infiltrate or mild interstitial edema. CTA Chest (01/28): FINDINGS: No pulmonary emboli are identified. The aorta as imaged shows no acute or suspicious finding. No pericardial thickening or effusion. No focal mass or consolidation identified. Bronchial wall thickening is present. Interstitial markings are mildly prominent. No pleural effusion or pleural thickening. No mediastinal or hilar suspicious masses. No chest wall masses or abnormal axillary lymphadenopathy. IMPRESSION: No pulmonary emboli identified. Bronchial wall thickening is seen without endobronchial lesion. Bronchitis or viral infiltrate suspected. Problem List: Acute on chronic COPD exacerbation Brief History of Present Illness: 55yo F, PMH: COPD, presents to ED due to 2 days of worsening cough, shortness of breath, wheeze. Patient states this began when she was outside while it was raining. 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 Tmax: 101.6 yesterday, 99.6 today. Has been using her albuterol inhaler/nebulizer at home with minimal help. She denies any sick contacts, no nausea/vomiting, mild loose stool, no abd pain, no chest pain, +rib soreness from coughing. Reports cough is dry, no sputum production, but feels like something is in her chest. In the ED, she was noted to be tachycardic, tachypneic, and requiring 2L NC. She had minimal improvement with breathing treatments and steroids in the ED. She remained tachycardic and tachypneic. CTA chest was negative for PE, revealed some possible bronchitis, no pneumonia, no effusion. ER physician recommended further management in the hospital. Hospital Course: Patient was treated for COPD exacerbation with steroids, nebs, and added dulera inhaler. She had improvement in her breathing and was feeling much improved the following day. She was ambulating on room air with SpO2 >93%. She did have some ESTRADA after walking for a while, but resolved quickly after sitting down. Discharged with prednisone, albuterol inhaler refill, dulera, and tessalon perles. Social work was consulted to help provide information for patient to obtain medical access given her low income/uninsured. I spoke with Dr. Ko who was able to meet with the patient, and she states she will be following up with him next week. Vital Signs/Physical Exam: Temp Pulse Resp BP Pulse Ox 98.1 F 87 24 H 137/88 96 01/29/21 08:00 01/29/21 08:00 01/29/21 08:00 01/29/21 08:00 01/29/21 08:00 General: Alert, In no apparent distress, Oriented x3 HEENT: Sclerae nonicteric Neck: Supple, No LAD Respiratory: Diminished, Expiratory wheezes (minimal bilaterally), Other (nonlabored on room air) Cardiovascular: No edema, Regular rate/rhythm Gastrointestinal: Soft and benign, Non-distended, No tenderness Musculoskeletal: No erythema, No tenderness Integumentary: No rashes Neurological: Normal speech, Normal affect Laboratory Data at Discharge: WBC 4.90 K/uL (4.3-10.9) D 01/29/21 03:28 Hgb 14.5 g/dL (12.0-15.0) 01/29/21 03:28 Hct 43.8 % (36.0-45.0) 01/29/21 03:28 Plt Count 87 K/uL (152-406) L 01/29/21 03:28 Sodium 141 mmol/L (136-145) 01/29/21 03:28 Potassium 4.8 mmol/L (3.5-5.1) 01/29/21 03:28 BUN 20 mg/dL (7-18) H 01/29/21 03:28 Creatinine 0.91 mg/dL (0.55-1.3) 01/29/21 03:28 Glucose 149 mg/dL (74-106) H 01/29/21 03:28 Magnesium 2.6 mg/dL (1.8-2.4) H 01/29/21 03:28 Home Medications: Albuterol Inhaler [Ventolin Inhaler*] 2 puff IH Q6H PRN 30 Days #1 hfa.aer.ad 01/29/21 Benzonatate [Tessalon Perle] 100 mg PO Q8H PRN 5 Days #15 cap 01/29/21 predniSONE [Deltasone] 20 mg PO BID 5 Days #10 tab 01/29/21 New Medications: predniSONE [Deltasone] 20 mg PO BID 5 Days #10 tab Benzonatate [Tessalon Perle] 100 mg PO Q8H PRN 5 Days #15 cap PRN Reason: Cough Albuterol Inhaler [Ventolin Inhaler*] 2 puff IH Q6H PRN 30 Days #1 hfa.aer.ad PRN Reason: Shortness Of Breath Diet: Regular Activity: Ad cara Followup: Corky Ko MD [ACTIVE - CAN ADMIT] - (follow up in 3-5 days, call to schedule an appointment ) NONE,NONE [Primary Care Provider] - Time spent managing pt's care (in minutes): 40
[2021-01-29] MEDS: ENOXAPARIN 40 MG/0.4 ML SQ SCH (09:00)
[2021-01-29] MEDS: DULERA 100/5 (MOMETASONE/FORMOTEROL) INHALER IH SCH (09:42)
[2021-01-29] MEDS: GUAIFENESIN 600 MG SA TAB PO SCH (09:44)
== END 2021-01-29 10:32 | disposition home or self-care (01) | DRG 192 ==
LOC: ER 08:47 → ERHOLD 12:03 → 4TH 13:46 → OBSVTOIN 01-29 07:41
PROVIDERS: ADMIT Hospitalist; ATTEND Hospitalist
DX: J44.1 Chronic obstructive pulmonary disease with (acute) exacerbation (principal); J44.0 Chronic obstructive pulmonary disease with (acute) lower respiratory infection; J20.9 Acute bronchitis, unspecified; F17.210 Nicotine dependence, cigarettes, uncomplicated; Z20.822 Contact with and (suspected) exposure to COVID-19; Z23 Encounter for immunization
CPT/HCPCS: 36415; 71045; 71275; 80048; 83735; 83880; 84484; 85025; 87040; 87070; 87081; 87804; 90471; 90732; 93005; 94640; 94760; 96361; 96365; 96375; 99285; G0378; J1650; J2175; J2920; J2930; J3475; J7030; J7606; Q9967; U0003

== ENCOUNTER 2021-01-30 14:52 | Emergency (ER) | payer SELFPAY ==
[2021-01-30] MEDS ORDERED: NA CHLORIDE 0.9% 1,000 ML ONE (16:25)
[2021-01-30] MEDS ORDERED: predniSONE 20 MG TAB ONE (16:25)
[2021-01-30 16:28] LABS: Absolute Lymphocytes (CBC) 1.2 K/uL (0.7-4.9); Basophils % 0.4 % (0-1.3); Hematocrit 45.3 % (36.0-45.0); Lymphocytes % 12.7 % (15.3-44.8); MPV 9.7 fL (7.6-11.3); RBC Red Blood Cell Count 4.97 M/uL (3.86-4.86)
[2021-01-30 16:35] LABS: Protime INR 0.92
[2021-01-30] MEDS ORDERED: LEVALBUTEROL 1.25 MG/3 ML NEB ONE (16:42)
[2021-01-30 16:51] LABS: ALT/SGPT 48 U/L (12-78); AST/SGOT 42 U/L (15-37); Albumin 3.4 g/dL (3.4-5.0); Alkaline Phosphatase 109 U/L (45-117); BUN Blood Urea Nitrogen 28 mg/dL (7-18); Bicarbonate 27 mmol/L (21-32); Bilirubin Direct 0.1 mg/dL (0-0.2); Bilirubin Total 0.3 mg/dL (0.2-1.0); Glucose Level 102 mg/dL (74-106); Magnesium 2.4 mg/dL (1.8-2.4); NT PRO-BNP 663 pg/mL (<125); Potassium 4.6 mmol/L (3.5-5.1); Protein, Total 7.7 g/dL (6.4-8.2); Sodium Level 143 mmol/L (136-145); Troponin (Emerg Dept Use Only) < 0.02 ng/mL (0.0-0.045)
[2021-01-30] MEDS ORDERED: ONDANSETRON 4 MG/2 ML VIAL ONE (17:11)
[2021-01-30] MEDS ORDERED: MORPHINE 4 MG/ML SYR ONE (17:11)
--- NOTE | 2021-01-30 17:14 | RAD REPORT ---
EXAM DESCRIPTION: RAD - Chest Single View - 01/30/2021 4:52 pm CLINICAL HISTORY: COPD Chest pain. COMPARISON: Chest Single View dated 01/28/2021; Chest Single View dated 11/21/2018 FINDINGS: Portable technique limits examination quality. The lungs are grossly clear. The heart is normal in size. No displaced fractures. IMPRESSION: No acute intrathoracic process suspected.
--- NOTE | 2021-01-30 18:50 | EDPHYS ---
Physician Documentation [facility] Name: Haleigh Torres Age: 55 yrs Sex: Female : 1965 Arrival Date: 01/30/2021 Time: 14:53 Bed 14 Private MD: ED Physician Villa Davidson HPI: 01/30 18:51 This 55 yrs old Female presents to ER via Ambulatory with complaints of COPD kdr Exacerbation. 18:51 The patient has shortness of breath at rest, with light activity. Onset: The kdr symptoms/episode began/occurred gradually, 1 week(s) ago. Duration: The symptoms are continuous, and are steadily getting worse. The patient's shortness of breath is aggravated by coughing, exertion, light activity. Associated signs and symptoms: Pertinent positives: non-productive cough, Pertinent negatives: diaphoresis, dizziness, fever, hemoptysis, nausea, numbness in extremities, visual changes, vomiting. Severity of symptoms: At their worst the symptoms were moderate severe incapacitating just prior to arrival, in the emergency department the symptoms are unchanged. The patient has experienced similar episodes in the past, chronically, with the last episode occurring last night. The patient has been recently been admitted at [facility], was discharged yesterday. Historical: - Allergies: 15:21 No Known Allergies; kg - PMHx: 15:21 COPD; kg - Immunization history:: Adult Immunizations up to date. - Social history:: Smoking status: Patient reports the use of cigarette tobacco products, smokes one pack cigarettes per day. ROS: 18:51 Constitutional: Negative for fever, chills, and weight loss, Eyes: Negative for injury, kdr pain, redness, and discharge, ENT: Negative for injury, pain, and discharge, Neck: Negative for injury, pain, and swelling, Cardiovascular: Negative for chest pain, palpitations, and edema, Abdomen/GI: Negative for abdominal pain, nausea, vomiting, diarrhea, and constipation, Back: Negative for injury and pain, : Negative for injury, bleeding, discharge, and swelling, MS/Extremity: Negative for injury and deformity, Skin: Negative for injury, rash, and discoloration, Neuro: Negative for headache, weakness, numbness, tingling, and seizure activity. Psych: Negative for depression, anxiety, suicide ideation, homicidal ideation, and hallucinations, Allergy/Immunology: Negative for hives, rash, and allergies, Endocrine: Negative for neck swelling, polydipsia, polyuria, polyphagia, and marked weight changes, Hematologic/Lymphatic: Negative for swollen nodes, abnormal bleeding, and unusual bruising. 18:51 Respiratory: Positive for cough, with no reported sputum, dyspnea on exertion, shortness of breath, wheezing, Negative for hemoptysis, orthopnea, pleurisy. Exam: 18:51 Constitutional: This is a well developed, well nourished patient who is awake, alert, kdr and in no acute distress. Head/Face: Normocephalic, atraumatic. Eyes: Pupils equal round and reactive to light, extra-ocular motions intact. Lids and lashes normal. Conjunctiva and sclera are non-icteric and not injected. Cornea within normal limits. Periorbital areas with no swelling, redness, or edema. Neck: Trachea midline, no thyromegaly or masses palpated, and no cervical lymphadenopathy. Supple, full range of motion without nuchal rigidity, or vertebral point tenderness. No Meningismus. Chest/axilla: Normal chest wall appearance and motion. Nontender with no deformity. No lesions are appreciated. Cardiovascular: Regular rate and rhythm with a normal S1 and S2. No gallops, murmurs, or rubs. Normal PMI, no JVD. No pulse deficits. Abdomen/GI: Soft, non-tender, with normal bowel sounds. No distension or tympany. No guarding or rebound. No evidence of tenderness throughout. Back: No spinal tenderness. No costovertebral tenderness. Full range of motion. Skin: Warm, dry with normal turgor. Normal color with no rashes, no lesions, and no evidence of cellulitis. MS/ Extremity: Pulses equal, no cyanosis. Neurovascular intact. Full, normal range of motion. Neuro: Awake and alert, GCS 15, oriented to person, place, time, and situation. Cranial nerves II-XII grossly intact. Motor strength 5/5 in all extremities. Sensory grossly intact. Cerebellar exam normal. Normal gait. Psych: Awake, alert, with orientation to person, place and time. Behavior, mood, and affect are within normal limits. 18:51 Respiratory: mild respiratory distress is noted, Respirations: normal, Breath sounds: decreased breath sounds, stridor, is not appreciated, wheezing: that is mild, is heard diffusely. 19:06 ECG was reviewed by the Attending Physician. kdr Vital Signs: 15:14 BP 147 / 94; Pulse 81; Resp 26; Temp 97.8(O); Pulse Ox 99% on R/A; Weight 64.23 kg (M); kg Height 5 ft. 28 in. (223.52 cm); 16:58 BP 151 / 96; Pulse 116; Resp 30; Pulse Ox 97% on R/A; Pain 8/10; hb 18:10 BP 135 / 99; Pulse 90; Resp 26; Pulse Ox 96% on R/A; hb 15:14 Body Mass Index 12.86 (64.23 kg, 223.52 cm) kg MDM: 18:49 Patient medically screened. kdr 18:51 Data reviewed: vital signs, nurses notes, lab test result(s), radiologic studies. kdr Counseling: I had a detailed discussion with the patient and/or guardian regarding: the historical points, exam findings, and any diagnostic results supporting the discharge/admit diagnosis, lab results, radiology results, the need for outpatient follow up. Response to treatment: the patient's symptoms have markedly improved after treatment. Special discussion: I discussed with the patient/guardian in detail that at this point there is no indication for admission to the hospital. It is understood, however, that if the symptoms persist or worsen the patient needs to return immediately for re-evaluation. 01/30 15:59 Order name: Basic Metabolic Panel; Complete Time: 17:11 [facility] 01/30 15:59 Order name: CBC with Diff; Complete Time: 17: [facility] 01/30 15:59 Order name: LFT's; Complete Time: 17:11 [facility] 01/30 15:59 Order name: Magnesium; Complete Time: 17:11 [facility] 01/30 15:59 Order name: NT PRO-BNP; Complete Time: 17:11 [facility] 01/30 15:59 Order name: PT-INR; Complete Time: 17:11 [facility] 01/30 15:59 Order name: Troponin (emerg Dept Use Only); Complete Time: 17:11 [facility] 01/30 15:59 Order name: XRAY Chest (1 view) [facility] 01/30 15:59 Order name: EKG; Complete Time: 16:00 [facility] 01/30 15:59 Order name: Cardiac monitoring; Complete Time: 16:29 kdr 01/30 15:59 Order name: EKG - Nurse/Tech; Complete Time: 16:55 kdr 01/30 15:59 Order name: IV Saline Lock; Complete Time: 16:29 kdr 01/30 15:59 Order name: Labs collected and sent; Complete Time: 16:29 kdr 01/30 15:59 Order name: O2 Per Protocol; Complete Time: 16:29 kdr 01/30 15:59 Order name: O2 Sat Monitoring; Complete Time: 16:29 kdr EC:06 Rate is 104 beats/min. Rhythm is regular, Sinus tachycardia with No ectopy. QRS [place] is kdr Normal. AL interval is normal. QRS interval is normal. QT interval is normal. Clinical impression: NSR w/ Non-specific ST/T Changes and Sinus tachycardia. Administered Medications: 16:22 Drug: Xopenex (levalbuterol) (3) 1.25 mg Route: Inhalation; hb 17:30 Follow up: Response: No adverse reaction hb 16:22 Drug: predniSONE 60 mg Route: PO; hb 17:30 Follow up: Response: No adverse reaction hb 16:56 Drug: morphine 4 mg Route: IVP; Site: right antecubital; hb 17:30 Follow up: Response: No adverse reaction hb 16:56 Drug: Zofran (Ondansetron) 4 mg Route: IVP; Site: right antecubital; hb 17:30 Follow up: Response: No adverse reaction hb 18:48 Drug: Phenergan (promethazine) -Codeine Liquid (6.25mg - 10mg / 5mL) 10 ml Route: PO; hb 19:01 Follow up: Response: No adverse reaction hb Disposition: 01/30/21 18:49 Discharged to Home. Impression: Shortness of breath, Chronic Obstructive Pulmonary Disease exacerbation. - Condition is Stable. - Discharge Instructions: Shortness of Breath, [id number], Chronic Obstructive Pulmonary Disease Exacerbation, [id number]. - Prescriptions for Promethazine VC- Codeine 6.25-5-10 mg/5 mL Oral syrup - take 5 milliliter by ORAL route every 4 hours As needed as needed, not to exceed 30 mL in 24 hours; 160 milliliter. Albuterol Sulfate 2.5 mg /3 mL (0.083 %) Inhalation Solution for Nebulization - inhale 2 unit by NEBULIZATION route every 8 hours As needed; 1 box. - Medication Reconciliation Form, Thank You Letter, Prescription Opioid Use form. - Follow up: Private Physician; When: 2 - 3 days; Reason: If symptoms return, Further diagnostic work-up, Recheck today's complaints, Continuance of care, Re-evaluation by your physician. - Problem is an acute exacerbation. - Symptoms have improved. Signatures: Dispatcher [employer] EDOH Villa Davidson MD MD [facility] Gretchen Toro RN RN Marisol Rowland, FELIX RN kg Corrections: (The following items were deleted from the chart) 19:01 18:49 01/30/2021 18:49 Discharged to Home. Impression: Shortness of breath; Chronic hb Obstructive Pulmonary Disease exacerbation. Condition is Stable. Discharge Instructions: Chronic Obstructive Pulmonary Disease Exacerbation, [id number]-[id number]. Prescriptions for Promethazine VC-Codeine 6.25-5-10 mg/5 mL Oral syrup - take 5 milliliter by ORAL route every 4 hours As needed as needed, not to exceed 30 mL in 24 hours; 160 milliliter. and Forms are Medication Reconciliation Form, Thank You Letter, Antibiotic Education, Prescription Opioid Use. Follow up: Private Physician; When: 2 - 3 days; Reason: If symptoms return, Further diagnostic work-up, Recheck today's complaints, Continuance of care, Re-evaluation by your physician. Problem is an acute exacerbation. Symptoms have improved. kdr
--- NOTE | 2021-01-30 18:50 | ER ---
Nurse's Notes [facility] Name: Haleigh Torres Age: 55 yrs Sex: Female : 1965 Arrival Date: 01/30/2021 Time: 14:53 Bed 14 Private MD: Diagnosis: Shortness of breath;Chronic Obstructive Pulmonary Disease exacerbation Presentation: 01/30 15:14 Chief complaint: Patient states: Pt stated, "My COPD is acting up. I have a dry cough kg and feels like a needled going into my left side every time I cough. I was just discharged yesterday from the 4th floor. The medications I was prescribed aren't working.". Coronavirus screen: Client denies travel out of the [place] in the last 14 days. At this time, unable to obtain information related to travel outside the [place] The client reports previous COVID testing was negative. Date of collection: January 28, 2021. Ebola Screen: Patient negative for fever greater than or equal to 101.5 degrees Fahrenheit, and additional compatible Ebola Virus Disease symptoms Patient denies exposure to infectious person. Patient denies travel to an Ebola-affected area in the 21 days before illness onset. Initial Sepsis Screen: Does the patient meet any 2 criteria? RR > 20 per min. No. Patient's initial sepsis screen is negative. Does the patient have a suspected source of infection? No. Patient's initial sepsis screen is negative. Risk Assessment: Do you want to hurt yourself or someone else? Patient reports no desire to harm self or others. Onset of symptoms was January 28, 2021. 15:14 Method Of Arrival: Ambulatory kg 15:14 Acuity: ANICETO 3 kg Triage Assessment: 15:21 General: Appears in no apparent distress. Behavior is calm, cooperative, appropriate kg for age, quiet. Historical: - Allergies: 15:21 No Known Allergies; kg - PMHx: 15:21 COPD; kg - Immunization history:: Adult Immunizations up to date. - Social history:: Smoking status: Patient reports the use of cigarette tobacco products, smokes one pack cigarettes per day. Screenin:28 Abuse screen: Denies threats or abuse. Denies injuries from another. Nutritional hb screening: No deficits noted. Tuberculosis screening: No symptoms or risk factors identified. Fall Risk None identified. Assessment: 16:29 General: Appears in no apparent distress. Behavior is calm, cooperative. Pain: Pain hb currently is 8 out of 10 on a pain scale. Neuro: Level of Consciousness is awake, alert, obeys commands, Oriented to person, place, time, situation. Cardiovascular: Patient's skin is warm and dry. Rhythm is regular. Respiratory: Reports shortness of breath at rest cough that is non-productive, persistent Respiratory effort is even, unlabored, Respiratory pattern is regular, symmetrical. GI: No signs and/or symptoms were reported involving the gastrointestinal system. : No signs and/or symptoms were reported regarding the genitourinary system. EENT: No signs and/or symptoms were reported regarding the EENT system. Derm: Skin is pink, warm \\T\\ dry. Musculoskeletal: No signs and/or symptoms reported regarding the musculoskeletal system. 16:57 Reassessment: Pt c/o pain with breasting and chest wall pain that radiates to back with hb cough. Dr. Davidson notified, medicated as ordered. Family remains at bedside. 17:33 Reassessment: Patient appears in no apparent distress at this time. Patient and/or hb family updated on plan of care and expected duration. Pain level reassessed. 18:10 Reassessment: Patient appears in no apparent distress at this time. No changes from hb previously documented assessment. Patient and/or family updated on plan of care and expected duration. Pain level reassessed. Vital Signs: 15:14 BP 147 / 94; Pulse 81; Resp 26; Temp 97.8(O); Pulse Ox 99% on R/A; Weight 64.23 kg (M); kg Height 5 ft. 28 in. (223.52 cm); 16:58 BP 151 / 96; Pulse 116; Resp 30; Pulse Ox 97% on R/A; Pain 8/10; hb 18:10 BP 135 / 99; Pulse 90; Resp 26; Pulse Ox 96% on R/A; hb 15:14 Body Mass Index 12.86 (64.23 kg, 223.52 cm) kg ED Course: 14:53 Patient arrived in ED. as 15:21 Triage completed. kg 15:21 Villa Davidson MD is Attending Physician. kdr 16:22 Inserted saline lock: 22 gauge in right antecubital area, using aseptic technique. hb Blood collected. 16:28 Gretchen Toro, RN is Primary Nurse. hb 16:28 Arm band placed on. hb 16:30 Patient has correct armband on for positive identification. Bed in low position. Call hb light in reach. 16:52 XRAY Chest (1 view) In Process Unspecified. EDMS 19:00 No provider procedures requiring assistance completed. IV discontinued, intact, hb bleeding controlled, No redness/swelling at site. Administered Medications: 16:22 Drug: Xopenex (levalbuterol) (3) 1.25 mg Route: Inhalation; hb 17:30 Follow up: Response: No adverse reaction hb 16:22 Drug: predniSONE 60 mg Route: PO; hb 17:30 Follow up: Response: No adverse reaction hb 16:56 Drug: morphine 4 mg Route: IVP; Site: right antecubital; hb 17:30 Follow up: Response: No adverse reaction hb 16:56 Drug: Zofran (Ondansetron) 4 mg Route: IVP; Site: right antecubital; hb 17:30 Follow up: Response: No adverse reaction hb 18:48 Drug: Phenergan (promethazine) -Codeine Liquid (6.25mg - 10mg / 5mL) 10 ml Route: PO; hb 19:01 Follow up: Response: No adverse reaction hb Outcome: 18:49 Discharge ordered by . kdr 19:00 Discharged to home ambulatory. hb 19:00 Condition: stable 19:00 Discharge instructions given to patient, Instructed on discharge instructions, follow up and referral plans. medication usage, Demonstrated understanding of instructions, follow-up care, medications, Prescriptions given X 2. 19:01 Patient left the ED. hb Signatures: Dispatcher [employer] EDOR Villa Davidson MD MD kdr Martinez, Amelia as Gretchen Toro, RN RN hb Marisol Rowland RN RN kg
[2021-01-30] MEDS ORDERED: PROMETH/COD 6.25/10MG SYRUP 5ML ONE (19:07)
[2021-01-30 19:42] VITALS: TEMP 97.8
[2021-01-30 19:46] VITALS: BP 135/99; O2SAT 96
== END 2021-01-30 19:01 | disposition home or self-care (01) ==
LOC: ER 14:52
DX: J44.1 Chronic obstructive pulmonary disease with (acute) exacerbation (principal); F17.210 Nicotine dependence, cigarettes, uncomplicated
CPT/HCPCS: 36415; 71045; 80048; 80076; 83735; 83880; 84484; 85025; 85610; 93005; 96374; 96375; 99284; J2405; J7030; J7512

== ENCOUNTER 2021-06-02 13:12 | Emergency (ER) | payer SELFPAY ==
[2021-06-02] MEDS ORDERED: predniSONE 20 MG TAB ONE (14:17)
--- NOTE | 2021-06-02 15:36 | RAD REPORT ---
EXAM DESCRIPTION: RAD - Chest Single View - 06/02/2021 3:08 pm CLINICAL HISTORY: COUGH COMPARISON: Chest Single View dated 01/30/2021; Chest Single View dated 01/28/2021; Chest Single View d ated 11/21/2018 FINDINGS: Lines: None. Lungs: No evidence of edema or pneumonia. Pleural: No significant pleural effusions or pneumothorax. Cardiac: The heart size is within normal limits. Bones: No acute fractures. Other: IMPRESSION: No acute cardiopulmonary disease.
--- NOTE | 2021-06-02 15:45 | ER ---
Nurse's Notes [facility] Name: Haleigh Torres Age: 55 yrs Sex: Female : 1965 Arrival Date: 06/02/2021 Time: 13:17 Bed 13 Private MD: Diagnosis: Acute upper respiratory infection, unspecified Presentation: 06/02 13:21 Chief complaint: Patient states: cough and fatigue that began 3 days ago. Coronavirus ss screen: Client presents with at least one sign or symptom that may indicate coronavirus-19. Standard/surgical mask placed on the client. Provider contacted for isolation considerations. Ebola Screen: Patient denies exposure to infectious person. Patient denies travel to an Ebola-affected area in the 21 days before illness onset. Initial Sepsis Screen: Does the patient meet any 2 criteria? No. Patient's initial sepsis screen is negative. Does the patient have a suspected source of infection? No. Patient's initial sepsis screen is negative. Risk Assessment: Do you want to hurt yourself or someone else? Patient reports no desire to harm self or others. Onset of symptoms was May 30, 2021. 13:21 Method Of Arrival: Ambulatory ss 13:21 Acuity: ANICETO 3 ss Historical: - Allergies: 13:23 No Known Allergies; ss - PMHx: 13:23 COPD; ss - Immunization history:: Client reports having NOT received the Covid vaccine. - Social history:: Smoking status: Patient reports the use of cigarette tobacco products, smokes one pack cigarettes per day. Screenin:18 Abuse screen: Denies threats or abuse. Denies injuries from another. Nutritional es2 screening: No deficits noted. Tuberculosis screening: No symptoms or risk factors identified. Fall Risk Mental Status- Oriented to own ability (0 pts). Assessment: 13:47 Reassessment: Pt c/o of rib/chest pain when taking breaths. General: Appears ill, es2 Behavior is calm, cooperative, appropriate for age. Pain: Complains of pain in chest Pain currently is 10 out of 10 on a pain scale. Neuro: Level of Consciousness is awake, alert, obeys commands, Oriented to person, place, time, situation, Appropriate for age Speech is normal. Cardiovascular: Capillary refill < 3 seconds Patient's skin is warm and dry. Respiratory: Reports cough that is. GI: No signs and/or symptoms were reported involving the gastrointestinal system. : No signs and/or symptoms were reported regarding the genitourinary system. EENT: No signs and/or symptoms were reported regarding the EENT system. Derm: No signs and/or symptoms reported regarding the dermatologic system. Vital Signs: 13:21 BP 152 / 111; Pulse 106; Resp 22; Temp 97.2(TE); Pulse Ox 97% on R/A; Weight 65.32 kg; ss Height 5 ft. 2 in. (157.48 cm); 13:45 BP 134 / 87; Pulse 92; Resp 22; Pulse Ox 98% ; es2 14:37 BP 157 / 95; Pulse 88; Pulse Ox 96% on R/A; es2 15:45 BP 129 / 78; Pulse 91; Resp 20; Pulse Ox 96% on R/A; es2 13:21 Body Mass Index 26.34 (65.32 kg, 157.48 cm) ED Course: 13:17 Patient arrived in ED. mr 13:21 Javid Bauman PA is PHCP. [facility] 13:21 Villa Davidson MD is Attending Physician. [facility] 13:23 Triage completed. ss 13:23 Arm band placed on right wrist. 13:24 Denise Hoyt, FELIX is Primary Nurse. es2 14:18 Chest Single View XRAY In Process Unspecified. EDMS 14:18 Patient has correct armband on for positive identification. Bed in low position. Call es2 light in reach. 14:18 No provider procedures requiring assistance completed. es2 16:01 Patient did not have IV access during this emergency room visit. es2 Administered Medications: 13:55 Drug: predniSONE 60 mg Route: PO; es2 15:46 Follow up: Response: No adverse reaction es2 Outcome: 15:44 Discharge ordered by . [facility] 16:00 Discharged to home ambulatory, with family. es2 16:00 Condition: stable 16:00 Discharge instructions given to patient, family, Instructed on discharge instructions, follow up and referral plans. medication usage, Demonstrated understanding of instructions, follow-up care, medications, Prescriptions given X 3. 16:01 Patient left the ED. es2 Signatures: Dispatcher [employer] EDMS Javid Bauman PA PA jmm Rivera, Mary mr Smirch, Shelby, RN RN Ruthie Miles RN RN ap3 Denise Hoyt RN RN es2 Corrections: (The following items were deleted from the chart) 14:18 14:01 CORONAVIRUS+ drawn and sent. ap3 EDMS
--- NOTE | 2021-06-02 15:45 | EDPHYS ---
Physician Documentation [facility] Name: Haleigh Torres Age: 55 yrs Sex: Female : 1965 Arrival Date: 06/02/2021 Time: 13:17 Bed 13 Private MD: ED Physician Villa Davidson HPI: 06/02 15:42 This 55 yrs old Female presents to ER via Ambulatory with complaints of Cough.jmm 15:42 The patient or guardian reports cough. Onset: The symptoms/episode began/occurred jmm gradually. Modifying factors: The symptoms are alleviated by nothing, the symptoms are aggravated by nothing. This is a 55-year-old female with history of COPD the presents emerged part with complaints of ongoing cough and congestion and shortness of breath. Patient is taken home medication and albuterol without relief. Patient is concerned she may have coronavirus. Patient is not immunized.. Historical: - Allergies: 13:23 No Known Allergies; ss - PMHx: 13:23 COPD; ss - Immunization history:: Client reports having NOT received the Covid vaccine. - Social history:: Smoking status: Patient reports the use of cigarette tobacco products, smokes one pack cigarettes per day. ROS: 15:42 Constitutional: Negative for fever, chills, and weight loss, Cardiovascular: Negative jmm for chest pain, palpitations, and edema. 15:42 Respiratory: Positive for cough. 15:42 All other systems are negative. Exam: 15:42 Constitutional: This is a well developed, well nourished patient who is awake, alert, jmm and in no acute distress. Head/Face: atraumatic. Eyes: EOMI, no conjunctival erythema appreciated ENT: Moist Mucus Membranes Neck: Trachea midline, Supple Chest/axilla: Normal chest wall appearance and motion. Cardiovascular: Regular rate and rhythm. No edema appreciated 15:42 Back: Normal ROM Skin: General appearance color normal MS/ Extremity: Moves all extremities, no obvious deformities appreciated, no edema noted to the lower extremities Neuro: Awake and alert, normal gait Psych: Behavior is normal, Mood is normal, Patient is cooperative and pleasant 15:42 Respiratory: the patient does not display signs of respiratory distress, Respirations: normal, Breath sounds: are clear throughout. Vital Signs: 13:21 BP 152 / 111; Pulse 106; Resp 22; Temp 97.2(TE); Pulse Ox 97% on R/A; Weight 65.32 kg; ss Height 5 ft. 2 in. (157.48 cm); 13:45 BP 134 / 87; Pulse 92; Resp 22; Pulse Ox 98% ; es2 14:37 BP 157 / 95; Pulse 88; Pulse Ox 96% on R/A; es2 15:45 BP 129 / 78; Pulse 91; Resp 20; Pulse Ox 96% on R/A; es2 13:21 Body Mass Index 26.34 (65.32 kg, 157.48 cm) ss MDM: 13:49 Patient medically screened. [facility] 15:43 Data reviewed: vital signs, nurses notes. Counseling: I had a detailed discussion with [facility] the patient and/or guardian regarding: the historical points, exam findings, and any diagnostic results supporting the discharge/admit diagnosis, lab results, radiology results, the need for outpatient follow up, to return to the emergency department if symptoms worsen or persist or if there are any questions or concerns that arise at home. ED course: Patient is alert and non toxic in appearance in the ED. No signs of resp distress, sepsis. Advised to follow up with pcp and otherwise given strict return precautions. Patient understood and agrees with the plan of care. . 06/02 14:17 Order name: SARS-COV-2 RT PCR; Complete Time: 15:17 EDMS 06/02 13:50 Order name: Chest Single View XRAY; Complete Time: 15:42 [facility] Administered Medications: 13:55 Drug: predniSONE 60 mg Route: PO; es2 15:46 Follow up: Response: No adverse reaction es2 Disposition: 22:56 Co-signature as Attending Physician, Villa Davidson MD I agree with the assessment and kdr plan of care. Disposition Summary: 06/02/21 15:44 Discharge Ordered Location: Home [facility] Condition: Stable [facility] Diagnosis - Acute upper respiratory infection, unspecified [facility] Followup: [facility] - With: Private Physician - When: 2 - 3 days - Reason: Recheck today's complaints, Continuance of care, Re-evaluation by your physician Discharge Instructions: - Discharge Summary Sheet [facility] - Upper Respiratory Infection, Adult [facility] Forms: - Medication Reconciliation Form [facility] - Thank You Letter [facility] - Antibiotic Education [facility] - Prescription Opioid Use [facility] - Work release form kj1 Prescriptions: - Prednisone 20 mg Oral Tablet - take 3 tablets by ORAL route once daily for 5 days; 15 tablet; Refills: 0, jm Product Selection Permitted - Zithromax Z-Shalom 250 mg Oral Tablet - take 1 tablet by ORAL route as directed for 5 days Day 1 - take two (2) tablets jmm one time. Day 2, 3, 4 , 5 take one (1) tablet once daily.; 6 tablet; Refills: 0, Product Selection Permitted - albuterol sulfate 90 mcg/actuation Inhalation HFA aerosol inhaler - inhale 2 puff by INHALATION route every 4 hours; 1 Pump; Refills: 0, Product jmm Selection Permitted Signatures: Dispatcher [employer] EDMS Villa Davidson MD MD kdr Mickail, Joel, PA PA jmm Smirch, Shelby, RN RN ss Denise Hoyt RN RN es2 Corrections: (The following items were deleted from the chart) 14:18 13:50 CORONAVIRUS+[email or web address].BRZ ordered. EDNM EDMS
[2021-06-02 16:17] VITALS: TEMP 97.2
[2021-06-02 16:20] VITALS: O2SAT 96
[2021-06-02 16:21] VITALS: BP 129/78
== END 2021-06-02 16:01 | disposition home or self-care (01) ==
LOC: ER 13:12
DX: J06.9 Acute upper respiratory infection, unspecified (principal); J44.9 Chronic obstructive pulmonary disease, unspecified; F17.210 Nicotine dependence, cigarettes, uncomplicated; Z20.822 Contact with and (suspected) exposure to COVID-19
CPT/HCPCS: 71045; 99283; J7512; U0003

== ENCOUNTER 2021-10-24 15:51 | Emergency (ER) | payer SELFPAY ==
[2021-10-24] MEDS ORDERED: dexAMETHasone 10 MG/ML VIAL ONE ×2 (16:18→16:33)
[2021-10-24 16:34] LABS: Absolute Lymphocytes (CBC) 1.5 K/uL (0.7-4.9); Hematocrit 45.5 % (36.0-45.0); Lymphocytes % 30.8 % (15.3-44.8); RBC Red Blood Cell Count 4.98 M/uL (3.86-4.86)
[2021-10-24 16:55] LABS: Albumin 3.3 g/dL (3.4-5.0); Bilirubin Direct 0.2 mg/dL (0-0.2); Bilirubin Total 0.5 mg/dL (0.2-1.0); Magnesium 2.2 mg/dL (1.8-2.4); Potassium 3.9 mmol/L (3.5-5.1); Protein, Total 7.5 g/dL (6.4-8.2); Troponin High Sensitivity 3.1 pg/mL (<58.9)
--- NOTE | 2021-10-24 16:59 | RAD REPORT ---
EXAM DESCRIPTION: RAD - Chest Single View - 10/24/2021 4:55 pm CLINICAL HISTORY: SOB COMPARISON: Chest Single View dated 06/02/2021; Chest Single View dated 01/30/2021; Chest Single View dated 01/28/2021; Chest Single View dated 11/21/2018 FINDINGS: Lines: None. Lungs: No evidence of edema or pneumonia. Pleural: No significant pleural effusions or pneumothorax. Cardiac: The heart size is within normal limits. Bones: No acute fractures. Other: IMPRESSION: No acute cardiopulmonary disease.
--- NOTE | 2021-10-24 17:32 | ER ---
Nurse's Notes [facility] Name: Haleigh Torres Age: 56 yrs Sex: Female : 1965 Arrival Date: 10/24/2021 Time: 15:53 Bed 4 Private MD: Diagnosis: COPD/ Chronic obstructive pulmonary disease with (acute) exacerbation Presentation: 10/24 16:11 Chief complaint: Patient states: "At work I became short of breath with movement". ag7 Coronavirus screen: Client denies travel out of the [place] in the last 14 days. At this time, the client does not indicate any symptoms associated with coronavirus-19. Ebola Screen: No symptoms or risks identified at this time. Initial Sepsis Screen: Does the patient meet any 2 criteria? No. Patient's initial sepsis screen is negative. Does the patient have a suspected source of infection? No. Patient's initial sepsis screen is negative. Risk Assessment: Do you want to hurt yourself or someone else? Patient reports no desire to harm self or others. Onset of symptoms was October 24, 2021. 16:11 Method Of Arrival: Ambulatory ag7 16:11 Acuity: ANICETO 3 ag7 Historical: - Allergies: 16:13 No Known Allergies; ag7 - Home Meds: 16:13 Albuterol Inhl [Active]; ag7 - PMHx: 16:13 COPD; ag7 - PSHx: 16:13 None; ag7 - Immunization history:: Adult Immunizations up to date. - Social history:: Smoking status: Patient reports the use of cigarette tobacco products, smokes one pack cigarettes per day. Screenin:20 Abuse screen: Denies threats or abuse. Nutritional screening: No deficits noted. vg1 Tuberculosis screening: No symptoms or risk factors identified. Fall Risk No fall in past 12 months (0 pts). No secondary diagnosis (0 pts). IV access (20 points). Ambulatory Aid- None/Bed Rest/Nurse Assist (0 pts). Gait- Normal/Bed Rest/Wheelchair (0 pts) Mental Status- Oriented to own ability (0 pts). Total Anders Fall Scale indicates No Risk (0-24 pts). Assessment: 16:20 General: Appears in no apparent distress. uncomfortable, Behavior is calm, cooperative. vg1 Pain: Denies pain. Neuro: Level of Consciousness is awake, alert, obeys commands, Oriented to person, place, time, situation. Cardiovascular: Patient's skin is warm and dry. Rhythm is. Respiratory: Reports shortness of breath at rest on exertion Airway is patent Respiratory effort is even, unlabored, Respiratory pattern is tachypnea Breath sounds are clear bilaterally. the patient has mild shortness of breath. GI: No signs and/or symptoms were reported involving the gastrointestinal system. : No signs and/or symptoms were reported regarding the genitourinary system. EENT: No signs and/or symptoms were reported regarding the EENT system. Derm: Skin is intact, is healthy with good turgor. Musculoskeletal: Circulation, motion, and sensation intact. 17:20 Reassessment: Patient appears in no apparent distress at this time. No changes from jl7 previously documented assessment. Patient and/or family updated on plan of care and expected duration. Pain level reassessed. Patient is alert, oriented x 3, equal unlabored respirations, skin warm/dry/pink. Vital Signs: 16:11 BP 143 / 92; Pulse 87; Resp 24; Temp 98.2; Pulse Ox 99% on R/A; Weight 68.04 kg; Height ag7 5 ft. 2 in. (157.48 cm); Pain 0/10; 17:45 BP 140 / 89; Pulse 85; Resp 20; Pulse Ox 99% ; jl7 16:11 Body Mass Index 27.44 (68.04 kg, 157.48 cm) ag7 ED Course: 15:53 Patient arrived in ED. as 16:02 Porter Guevara NP is PHCP. pm1 16:02 Karthikeyan Diehl MD is Attending Physician. pm1 16:13 Triage completed. ag7 16:15 Jill Jaimes RN is Primary Nurse. vg1 16:15 Arm band placed on left wrist. ag7 16:20 Patient has correct armband on for positive identification. Placed in gown. Bed in low vg1 position. Call light in reach. Side rails up X 1. chief maintenance supervisor on. Pulse ox on. NIBP on. 16:20 Initial lab(s) drawn, by ED staff, sent to lab. Inserted saline lock: 20 gauge in left vg1 antecubital area, using aseptic technique. ,using aseptic technique. completed by Tadeo W[place] Blood collected. 16:24 EKG done, by ED staff, reviewed by Porter Guevara [employer] ENAMEL REPAIRER. em1 16:55 XRAY Chest (1 view) In Process Unspecified. EDMS 18:00 No provider procedures requiring assistance completed. IV discontinued, intact, jl7 bleeding controlled, No redness/swelling at site. Pressure dressing applied. Administered Medications: 16:31 Drug: Decadron - Dexamethasone 10 mg Route: IVP; Site: left antecubital; vg1 17:00 Follow up: Response: No adverse reaction jl7 Outcome: 17:31 Discharge ordered by MD. pm1 18:00 Discharged to home ambulatory. jl7 18:00 Condition: stable 18:00 Discharge instructions given to patient, Instructed on discharge instructions, follow up and referral plans. medication usage, Demonstrated understanding of instructions, follow-up care, medications, Prescriptions given X 4. 18:00 Patient left the ED. jl7 Signatures: Dispatcher [employer] EDTN Aleshia Lawrence Eric em1 Porter Guevara, JOAQUINA [employer]CELAIN ENAMEL REPAIRER pm1 Tadeo Duncan, FELIX RN jl7 Jill Jaimes, RN RN vg1 Tessie Morales, RN RN ag7 Corrections: (The following items were deleted from the chart) 18:09 18:08 Patient left the ED. jl7 jl7
--- NOTE | 2021-10-24 17:32 | EDPHYS ---
Physician Documentation [facility] Name: Haleigh Torres Age: 56 yrs Sex: Female : 1965 Arrival Date: 10/24/2021 Time: 15:53 Bed 4 Private MD: ED Physician Karthikeyan Diehl HPI: 10/24 16:16 This 56 yrs old Female presents to ER via Ambulatory with complaints of Shortness Of pm1 Breath. 16:16 The patient has shortness of breath at rest. Onset: The symptoms/episode began/occurred pm1 chronic due to COPD but worse today due to activity at work. Duration: The symptoms are continuous. The patient's shortness of breath is aggravated by exertion, is alleviated by nothing, patient took her friends duoneb without improvement. Associated signs and symptoms: Pertinent positives: non-productive cough, Pertinent negatives: chest pain, productive cough, fever. Severity of symptoms: in the emergency department the symptoms are unchanged. The patient has experienced similar episodes in the past, multiple times. The patient has not recently seen a physician, and does not have an established primary care provider. Patient smokes 1/2 pack per day. Today she smoked 3 cigarettes. Historical: - Allergies: 16:13 No Known Allergies; ag7 - Home Meds: 16:13 Albuterol Inhl [Active]; ag7 - PMHx: 16:13 COPD; ag7 - PSHx: 16:13 None; ag7 - Immunization history:: Adult Immunizations up to date. - Social history:: Smoking status: Patient reports the use of cigarette tobacco products, smokes one pack cigarettes per day. ROS: 16:16 Constitutional: Negative for fever, chills, and weight loss, Cardiovascular: Negative pm1 for chest pain, palpitations, and edema. 16:16 Abdomen/GI: Negative for abdominal pain, nausea, vomiting, diarrhea, and constipation, Back: Negative for injury and pain, MS/Extremity: Negative for injury and deformity, Skin: Negative for injury, rash, and discoloration, Neuro: Negative for headache, weakness, numbness, tingling, and seizure. 16:16 Respiratory: Positive for cough, shortness of breath, Negative for sputum production, wheezing. 16:16 All other systems are negative. Exam: 16:16 Constitutional: This is a well developed, well nourished patient who is awake, alert, pm1 and in no acute distress. Head/Face: Normocephalic, atraumatic. 16:16 Back: No spinal tenderness. No costovertebral tenderness. Full range of motion. Skin: Warm, dry with normal turgor. Normal color with no rashes, no lesions, and no evidence of cellulitis. MS/ Extremity: Pulses equal, no cyanosis. Neurovascular intact. Full, normal range of motion. 16:16 Cardiovascular: Exam negative for acute changes, Rate: normal, Rhythm: regular, Pulses: no pulse deficits are appreciated, Heart sounds: normal, normal S1and S2. 16:16 Respiratory: Exam negative for acute changes, respiratory distress, shortness of breath, Breath sounds: are clear throughout. 16:16 Neuro: Exam negative for acute changes, Orientation: is normal, Mentation: is normal, Motor: is normal, moves all fours. Vital Signs: 16:11 BP 143 / 92; Pulse 87; Resp 24; Temp 98.2; Pulse Ox 99% on R/A; Weight 68.04 kg; Height ag7 5 ft. 2 in. (157.48 cm); Pain 0/10; 17:45 BP 140 / 89; Pulse 85; Resp 20; Pulse Ox 99% ; jl7 16:11 Body Mass Index 27.44 (68.04 kg, 157.48 cm) ag7 MDM: 16:08 Patient medically screened. pm1 17:29 Data reviewed: vital signs. Data interpreted: Pulse oximetry: on room air is 99 %. pm1 Interpretation: normal. Counseling: I had a detailed discussion with the patient and/or guardian regarding: the historical points, exam findings, and any diagnostic results supporting the discharge/admit diagnosis, radiology results, the need for outpatient follow up, to return to the emergency department if symptoms worsen or persist or if there are any questions or concerns that arise at home. 10/24 16:13 Order name: Basic Metabolic Panel pm1 10/24 16:13 Order name: CBC with Diff pm1 10/24 16:13 Order name: LFT's pm1 10/24 16:13 Order name: Magnesium; Complete Time: 16:56 pm1 10/24 16:13 Order name: NT PRO-BNP; Complete Time: 16:56 pm1 10/24 16:13 Order name: PT-INR; Complete Time: 16:56 pm1 10/24 16:13 Order name: Troponin HS; Complete Time: 16:56 pm1 10/24 16:13 Order name: XRAY Chest (1 view); Complete Time: 17:04 pm1 10/24 16:13 Order name: EKG; Complete Time: 16:13 pm1 10/24 16:13 Order name: Cardiac monitoring; Complete Time: 16:20 pm1 10/24 16:13 Order name: Basic Metabolic Panel; Complete Time: 16:56 EDMS 10/24 16:13 Order name: CBC with Automated Diff; Complete Time: 16:56 EDMS 10/24 16:13 Order name: Liver (Hepatic) Function; Complete Time: 16:56 EDMS 10/24 16:13 Order name: EKG - Nurse/Tech; Complete Time: 16:20 pm1 10/24 16:13 Order name: IV Saline Lock; Complete Time: 16:20 pm1 10/24 16:13 Order name: Labs collected and sent; Complete Time: 16:20 pm1 10/24 16:13 Order name: O2 Per Protocol; Complete Time: 16:13 pm1 10/24 16:13 Order name: O2 Sat Monitoring; Complete Time: 16:13 pm1 Administered Medications: 16:31 Drug: Decadron - Dexamethasone 10 mg Route: IVP; Site: left antecubital; vg1 17:00 Follow up: Response: No adverse reaction jl7 Disposition: 18:12 Co-signature as Attending Physician, Karthikeyan Diehl MD I agree with the assessment and rn plan of care. Attestation: The patient's history, exam findings, diagnostics, and a summary of any interventions or procedures was reviewed in detail with Porter Guevara NP. Disposition Summary: 10/24/21 17:31 Discharge Ordered Location: Home pm1 Problem: new pm1 Symptoms: have improved pm1 Condition: Stable pm1 Diagnosis - COPD/ Chronic obstructive pulmonary disease with (acute) exacerbation pm1 Followup: pm1 - With: Emergency Department - When: As needed - Reason: Worsening of condition Followup: pm1 - With: Private Physician - When: 2 - 3 days - Reason: Recheck today's complaints, Continuance of care, Re-evaluation by your physician Discharge Instructions: - Discharge Summary Sheet pm1 - Steps to Quit Smoking pm1 - Chronic Obstructive Pulmonary Disease Exacerbation pm1 Forms: - Medication Reconciliation Form pm1 - Thank You Letter pm1 - Antibiotic Education pm1 - Prescription Opioid Use pm1 - Work release form vg1 Prescriptions: - Ventolin HFA 90 mcg/actuation Inhalation HFA aerosol inhaler - inhale 2 puff by INHALATION route every 4-6 hours As needed; 1 Inhaler; pm1 Refills: 0, Product Selection Permitted - Prednisone 20 mg Oral Tablet - take 3 tablets by ORAL route once daily for 5 days; 15 tablet; Refills: 0, pm1 Product Selection Permitted - Zithromax Z-Shalom 250 mg Oral Tablet - take 1 tablet by ORAL route as directed for 5 days Day 1 - take two (2) tablets pm1 one time. Day 2, 3, 4 , 5 take one (1) tablet once daily.; 6 tablet; Refills: 0, Product Selection Permitted - Guaifenesin AC 10-100 mg/5 mL Oral Liquid - take 10 milliliters by ORAL route every 4 hours As needed; 240 milliliter; pm1 Refills: 0, Product Selection Permitted Signatures: Dispatcher [employer] EDKarthikeyan Anderson MD MD rn Marinas, Patrick, NP [employer] pm1 Jill Jaimes RN RN vg1 eTssie Morales RN RN ag7 Tadeo Duncan RN jl7
[2021-10-24 18:35] VITALS: TEMP 98.2; O2SAT 99
[2021-10-24 18:36] VITALS: BP 140/89
--- NOTE | 2021-10-25 09:24 | EKG ---
Test Date: 2021-10-24 Test Time: 16:24:19 Job Change Crew Member: SHERIN MEASUREMENT RESULTS: Intervals: Rate: 84 IA: 148 QRSD: 70 QT: 370 QTc: 437 [place]: P: 77 IA: 148 QRS: 84 T: 78 INTERPRETIVE STATEMENTS: Normal sinus rhythm Normal ECG Compared to ECG 01/30/2021 16:45:59 Sinus tachycardia no longer present Atrial premature complex(es) no longer present Fusion complex(es) no longer present Electronically Signed On 10-25-21 09:22:55 CADD MANAGER by Jacob Madrid
== END 2021-10-24 18:08 | disposition home or self-care (01) ==
LOC: ER 15:51
DX: J44.1 Chronic obstructive pulmonary disease with (acute) exacerbation (principal); F17.210 Nicotine dependence, cigarettes, uncomplicated
CPT/HCPCS: 36415; 71045; 80048; 80076; 83735; 83880; 84484; 85025; 85610; 93005; 96374; 99284; J1100

== ENCOUNTER 2022-05-18 23:07 | Emergency (ER) | payer SELFPAY ==
[2022-05-18] MEDS ORDERED: METHYLPREDNISOLONE 125 MG INJ ONE (23:41)
[2022-05-18] MEDS ORDERED: ALBUTEROL 2.5 MG/3 ML NEB SOL ONE (23:43)
[2022-05-18] MEDS ORDERED: IPRATROPIUM BROM 0.5MG/2.5ML ONE (23:44)
[2022-05-18 23:57] LABS: Absolute Lymphocytes (CBC) 1.9 K/uL (0.7-4.9); Hematocrit 43.1 % (36.0-45.0); Lymphocytes % 36.1 % (15.3-44.8); MCV 92.8 fL (80-100); MPV 8.3 fL (7.6-11.3); RBC Red Blood Cell Count 4.65 M/uL (3.86-4.86)
[2022-05-19 00:10] LABS: Potassium 3.6 mmol/L (3.5-5.1); Troponin High Sensitivity 4.4 pg/mL (<58.9)
--- NOTE | 2022-05-19 00:26 | ER ---
Nurse's Notes [facility] Name: Haleigh Torres Age: 56 yrs Sex: Female : 1965 Arrival Date: 05/18/2022 Time: 23:10 Bed 7 Private MD: Diagnosis: COPD/ Chronic obstructive pulmonary disease, unspecified Presentation: 05/18 23:17 Chief complaint: SOB and cough x 2 days, unrelieved by albuterol nebs. Hx of COPD. hb Coronavirus screen: Client presents with at least one sign or symptom that may indicate coronavirus-19. Standard/surgical mask placed on the client. Provider contacted for isolation considerations. Ebola Screen: No symptoms or risks identified at this time. Initial Sepsis Screen: Does the patient meet any 2 criteria? No. Patient's initial sepsis screen is negative. Does the patient have a suspected source of infection? No. Patient's initial sepsis screen is negative. Risk Assessment: Do you want to hurt yourself or someone else? Patient reports no desire to harm self or others. Onset of symptoms was May 17, 2022. 23:17 Method Of Arrival: Ambulatory 23:17 Acuity: ANICETO 3 hb Triage Assessment: 23:19 General: Appears in no apparent distress. Behavior is calm, cooperative. Pain: Denies hb pain. Neuro: Level of Consciousness is awake, alert, obeys commands, Oriented to person, place, time, situation. Cardiovascular: Patient's skin is warm and dry. Respiratory: Respiratory effort is even, unlabored, Respiratory pattern is regular, symmetrical. Historical: - Allergies: 23:19 No Known Allergies; hb - PMHx: 23:19 COPD; hb - Immunization history:: Adult Immunizations up to date. - Social history:: Smoking status: Patient reports the use of cigarette tobacco products, smokes one pack cigarettes per day. Screenin/28 00:51 Abuse screen: Denies threats or abuse. Nutritional screening: No deficits noted. vc1 Tuberculosis screening: No symptoms or risk factors identified. Fall Risk None identified. Assessment: 00:52 Reassessment: Patient and/or family updated on plan of care and expected duration. Pain vc1 level reassessed. Patient is alert, oriented x 3, equal unlabored respirations, skin warm/dry/pink. Patient denies pain at this time. Patient states feeling better. Patient states symptoms have improved. Vital Signs: 05/18 23:17 BP 157 / 97; Pulse 88; Resp 20; Temp 98.3; Pulse Ox 100% on R/A; Weight 68.04 kg; hb Height 5 ft. 1 in. (154.94 cm); Pain 0/10; 23:17 Body Mass Index 28.34 (68.04 kg, 154.94 cm) hb ED Course: 23:10 Patient arrived in ED. bp1 23:16 Loraine Johnston RN is Primary Nurse. vc1 23:19 Triage completed. hb 23:19 Arm band placed on. hb 23:28 Randy Rosales MD is Attending Physician. sp3 23:54 XRAY Chest (1 view) In Process Unspecified. EDMS 05/19 00:00 Call light in reach. Side rails up X2. Client placed on continuous cardiac and pulse vc1 oximetry monitoring. NIBP monitoring applied. 00:51 No provider procedures requiring assistance completed. IV discontinued, intact, vc1 bleeding controlled, No redness/swelling at site. Pressure dressing applied. Administered Medications: 05/18 23:50 Drug: DuoNeb (albuterol 2.5 mg, ipratropium 0.5 mg) (3:1) (2.5 mg - 0.5 mg) 3 ml Route: vc1 Nebulizer; 23:50 Drug: SOLU-Medrol (methylPrednisoLONE) 125 mg Route: IVP; Site: right antecubital; vc1 05/19 00:51 Not Given (Duplicate Order): DuoNeb (albuterol 2.5 mg, ipratropium 0.5 mg) (3:1) (2.5 vc1 mg - 0.5 mg) 3 ml Nebulizer once Medication: 00:52 VIS not applicable for this client. vc1 Outcome: 00:25 Discharge ordered by . sp3 00:51 Discharged to home ambulatory. vc1 00:51 Condition: good 00:51 Discharge instructions given to patient, Instructed on discharge instructions, follow up and referral plans. medication usage, Demonstrated understanding of instructions, follow-up care, medications, Prescriptions given X 2. 00:52 Patient left the ED. vc1 Signatures: Dispatcher [employer] EDOR Gretchen Toro RN RN [place]ia[place], TashaRandy Martinez MD MD sp3 Vickie, Loraine, RN RN vc1
--- NOTE | 2022-05-19 00:26 | EDPHYS ---
Physician Documentation [facility] Name: Haleigh Torres Age: 56 yrs Sex: Female : 1965 Arrival Date: 05/18/2022 Time: 23:10 Bed 7 Private MD: ED Physician Randy Rosales HPI: 05/18 23:48 This 56 yrs old Female presents to ER via Ambulatory with complaints of COPD sp3 Exacerbation. 23:48 56-year-old female with a history of COPD presents to the ED for chief complaints sp3 shortness of breath and being out of her medications. She does not have a regular primary care physician and gets all of her treatment here at this emergency department. 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 She denies fever, cough, chest pain, abdominal pain, nausea, vomiting, diarrhea, rash, known sick contacts, travel history, any other ROS at this time.. Historical: - Allergies: 23:19 No Known Allergies; hb - PMHx: 23:19 COPD; hb - Immunization history:: Adult Immunizations up to date. - Social history:: Smoking status: Patient reports the use of cigarette tobacco products, smokes one pack cigarettes per day. ROS: 23:49 Constitutional: Negative for fever, chills, and weight loss, Eyes: Negative for injury, sp3 pain, redness, and discharge, ENT: Negative for injury, pain, and discharge, Neck: Negative for injury, pain, and swelling, Cardiovascular: Negative for chest pain, palpitations, and edema, Abdomen/GI: Negative for abdominal pain, nausea, vomiting, diarrhea, and constipation, Back: Negative for injury and pain, MS/Extremity: Negative for injury and deformity, Skin: Negative for injury, rash, and discoloration, Neuro: Negative for headache, weakness, numbness, tingling, and seizure, Psych: Negative for depression, anxiety, suicide ideation, homicidal ideation, and hallucinations, Allergy/Immunology: Negative for hives, rash, and allergies, Endocrine: Negative for neck swelling, polydipsia, polyuria, polyphagia, and marked weight changes, Hematologic/Lymphatic: Negative for swollen nodes, abnormal bleeding, and unusual bruising. 23:49 All other systems are negative. Exam: 23:49 Constitutional: This is a well developed, well nourished patient who is awake, alert, sp3 and in no acute distress. Head/Face: Normocephalic, atraumatic. Eyes: Pupils equal round and reactive to light, extra-ocular motions intact. Lids and lashes normal. Conjunctiva and sclera are non-icteric and not injected. Cornea within normal limits. Periorbital areas with no swelling, redness, or edema. ENT: Nares patent. No nasal discharge, no septal abnormalities noted. External auditory canals are clear. Oropharynx with no redness, swelling, or masses, exudates, or evidence of obstruction, uvula midline. Mucous membranes moist. Neck: Trachea midline, no thyromegaly or masses palpated, and no cervical lymphadenopathy. Supple, full range of motion without nuchal rigidity, or vertebral point tenderness. No Meningismus. Chest/axilla: Normal chest wall appearance and motion. Nontender with no deformity. No lesions are appreciated. Cardiovascular: Regular rate and rhythm with a normal S1 and S2. No gallops, murmurs, or rubs. Normal PMI, no JVD. No pulse deficits. Abdomen/GI: Soft, non-tender, with normal bowel sounds. No distension or tympany. No guarding or rebound. No evidence of tenderness throughout. Back: No spinal tenderness. No costovertebral tenderness. Full range of motion. Skin: Warm, dry with normal turgor. Normal color with no rashes, no lesions, and no evidence of cellulitis. MS/ Extremity: Pulses equal, no cyanosis. Neurovascular intact. Full, normal range of motion. Neuro: Awake and alert, GCS 15, oriented to person, place, time, and situation. Cranial nerves II-XII grossly intact. Motor strength 5/5 in all extremities. Sensory grossly intact. Cerebellar exam normal. Normal gait. Psych: Awake, alert, with orientation to person, place and time. Behavior, mood, and affect are within normal limits. 23:49 Respiratory: Mild wheezing noted; No respiratory difficulty noted. . Vital Signs: 23:17 BP 157 / 97; Pulse 88; Resp 20; Temp 98.3; Pulse Ox 100% on R/A; Weight 68.04 kg; hb Height 5 ft. 1 in. (154.94 cm); Pain 0/10; 23:17 Body Mass Index 28.34 (68.04 kg, 154.94 cm) hb MDM: 23:31 Patient medically screened. sp3 23:49 Data reviewed: vital signs, nurses notes. ED course: Will administer Solu-Medrol IV and sp3 nebulizers. Antibiotics not indicated and chest x-ray is clear. Will discharge patient on refills of her inhaler and albuterol Nebules. Will urge patient to stop smoking and find local PCP.. 05/18 23:30 Order name: Basic Metabolic Panel; Complete Time: 00:24 sp3 05/18 23:30 Order name: CBC with Diff; Complete Time: 00:24 sp3 05/18 23:30 Order name: NT PRO-BNP; Complete Time: 00:24 sp3 05/18 23:30 Order name: Troponin HS; Complete Time: 00:24 sp3 05/18 23:30 Order name: XRAY Chest (1 view) 3 05/18 23:30 Order name: EKG; Complete Time: 23:30 3 05/18 23:30 Order name: Cardiac monitoring 3 05/18 23:30 Order name: EKG - Nurse/Tech sp3 05/18 23:30 Order name: IV Saline Lock; Complete Time: 23:50 sp3 05/18 23:30 Order name: Labs collected and sent; Complete Time: 23:50 3 05/18 23:30 Order name: O2 Per Protocol; Complete Time: 23:50 sp3 05/18 23:30 Order name: O2 Sat Monitoring; Complete Time: 23:50 sp3 Administered Medications: 23:50 Drug: DuoNeb (albuterol 2.5 mg, ipratropium 0.5 mg) (3:1) (2.5 mg - 0.5 mg) 3 ml Route: vc1 Nebulizer; 23:50 Drug: SOLU-Medrol (methylPrednisoLONE) 125 mg Route: IVP; Site: right antecubital; vc1 05/19 00:51 Not Given (Duplicate Order): DuoNeb (albuterol 2.5 mg, ipratropium 0.5 mg) (3:1) (2.5 vc1 mg - 0.5 mg) 3 ml Nebulizer once Disposition Summary: 05/19/22 00:25 Discharge Ordered Location: Home sp3 Condition: Stable sp3 Diagnosis - COPD/ Chronic obstructive pulmonary disease, unspecified sp3 Followup: sp3 - With: Private Physician - When: Upon discharge from the Emergency Department - Reason: Recheck today's complaints Discharge Instructions: - Discharge Summary Sheet sp3 - Chronic Obstructive Pulmonary Disease sp3 Forms: - Medication Reconciliation Form sp3 - Thank You Letter sp3 - Antibiotic Education sp3 - Prescription Opioid Use sp3 - Work release form vc1 Prescriptions: - albuterol sulfate 90 mcg/actuation Inhalation HFA aerosol inhaler - inhale 1 puff by INHALATION route every 4-6 hours; 1 Device; Refills: 0, cp Product Selection Permitted - Albuterol Sulfate 2.5 mg /3 mL (0.083 %) Inhalation Solution for Nebulization - inhale 1 unit by NEBULIZATION route every 8 hours As needed; 1 box; Refills: 0, cp Product Selection Permitted Signatures: Dispatcher [employer] Gretchen Padilla RN RN hb Patel, Setul, MD MD sp3 Loraine Johnston RN RN vc1
--- NOTE | 2022-05-19 13:05 | EKG ---
Test Date: 2022-05-19 Test Time: 00:30:50 Spar Machine Operator Helper: MICAELA MEASUREMENT RESULTS: Intervals: Rate: 83 WV: 156 QRSD: 74 QT: 384 QTc: 451 [place]: P: 77 WV: 156 QRS: 74 T: 69 INTERPRETIVE STATEMENTS: Normal sinus rhythm Possible Left atrial enlargement Borderline ECG Compared to ECG 10/24/2021 16:24:19 No significant changes Electronically Signed On 05-19-22 13:04:12 CDT by Tom Ma
--- NOTE | 2022-05-19 17:42 | RAD REPORT ---
EXAM DESCRIPTION: Chest single view CLINICAL HISTORY: 56 years, Female, COPD COMPARISON: None. FINDINGS: Single view of the chest was obtained portable. No prior films are available for compariso n. The cardiomediastinal silhouette demonstrate to be unremarkable. The heart is not enlarged. The th oracic aorta is unremarkable. The pulmonary vasculature is normal distribution. Costophrenic angles a re sharp. No areas of consolidation or masses are seen. The rest of the soft tissue and bony stru ctures demonstrate to be unremarkable. IMPRESSION: No acute cardiopulmonary disease seen. Electronically signed by: Woodrow Diaz MD 05/19/2022 12:07 AM CDT Due to temporary technical issues with the PACS/Fluency reporting system, reports are being signed by the in house radiologists without review as a courtesy to insure prompt reporting. The interpreting radiologist is fully responsible for the content of the report.
[2022-05-21 03:02] VITALS: BP 157/97; TEMP 98.3; O2SAT 100
== END 2022-05-19 00:52 | disposition home or self-care (01) ==
LOC: ER 23:07
DX: J44.1 Chronic obstructive pulmonary disease with (acute) exacerbation (principal); F17.210 Nicotine dependence, cigarettes, uncomplicated
CPT/HCPCS: 36415; 71045; 80048; 83880; 84484; 85025; 93005; 94640; 96374; 99284; J2930

== ENCOUNTER 2022-09-28 09:06 | Emergency (ER) | payer OTHER ==
[2022-09-28] MEDS ORDERED: ALBUTEROL 2.5 MG/3 ML NEB SOL ONE (10:02)
[2022-09-28] MEDS ORDERED: predniSONE 20 MG TAB ONE (10:02)
[2022-09-28] MEDS ORDERED: IPRATROPIUM BROM 0.5MG/2.5ML ONE (10:02)
--- NOTE | 2022-09-28 10:24 | RAD REPORT ---
EXAM DESCRIPTION: RAD - Chest Single View - 09/28/2022 10:17 am CLINICAL HISTORY: COPD COMPARISON: Portable 05/30/2022 TECHNIQUE: AP portable chest image was obtained 09/28/2022 10:17 am . FINDINGS: No focal mass or consolidation. Interstitial pattern is similar to comparison. No bronchia l wall thickening identifiable. No hilar mass or lymphadenopathy is seen. Heart and vasculature are n ormal. No measurable pleural effusion and no pneumothorax. No acute bony abnormality seen. No acute a ortic findings suspected. IMPRESSION: No acute cardiopulmonary process. No significant change from comparison study.
--- NOTE | 2022-09-28 10:25 | ER ---
Nurse's Notes [facility] Name: Haleigh Torres Age: 57 yrs Sex: Female : 1965 Arrival Date: 09/28/2022 Time: 09:12 Bed 11 Private MD: Diagnosis: COPD/ Chronic obstructive pulmonary disease with (acute) exacerbation Presentation: 09/28 09:22 Chief complaint: Patient states: COPD flare up - felt faint, used my inhaler and it ld1 didn't help. Requesting stronger inhaler. Coronavirus screen: At this time, the client does not indicate any symptoms associated with coronavirus-19. Ebola Screen: No symptoms or risks identified at this time. Initial Sepsis Screen: Does the patient meet any 2 criteria? No. Patient's initial sepsis screen is negative. Does the patient have a suspected source of infection? No. Patient's initial sepsis screen is negative. Risk Assessment: Do you want to hurt yourself or someone else? Patient reports no desire to harm self or others. Onset of symptoms was September 28, 2022. :22 Method Of Arrival: Ambulatory ld1 09:22 Acuity: ANICETO 3 ld1 Triage Assessment: : General: Appears in no apparent distress. comfortable, Behavior is calm, cooperative, ld1 appropriate for age. Pain: Denies pain. EENT: No signs and/or symptoms were reported regarding the EENT system. Neuro: Level of Consciousness is awake, alert, obeys commands, Oriented to person, place, time, situation. Cardiovascular: Capillary refill < 3 seconds Patient's skin is warm and dry. Respiratory: Airway is patent Respiratory effort is even, unlabored. GI: Abdomen is round non-distended. : No signs and/or symptoms were reported regarding the genitourinary system. Derm: No signs and/or symptoms reported regarding the dermatologic system. Musculoskeletal: No signs and/or symptoms reported regarding the musculoskeletal system. Historical: - Allergies: : No Known Allergies; ld1 - Home Meds: : Albuterol Inhl [Active]; ld1 - PMHx: : COPD; ld1 - PSHx: : None; ld1 - Immunization history:: Adult Immunizations up to date, Client reports receiving the 2nd dose of the Covid vaccine. - Social history:: Smoking status: Patient reports the use of cigarette tobacco products, smokes one-half pack cigarettes per day, Patient/guardian denies using alcohol. Screenin:11 [facility] ED Fall Risk Assessment (Adult) History of falling in the last 3 months, ss including since admission No falls in past 3 months (0 pts). Abuse screen: Denies threats or abuse. Denies injuries from another. Nutritional screening: No deficits noted. Tuberculosis screening: Never had TB. Assessment: 10:11 General: Appears in no apparent distress. comfortable, Behavior is calm, cooperative. ss Pain: Denies pain. Neuro: Level of Consciousness is awake, alert, obeys commands, Oriented to person, place, time, situation. Respiratory: Airway is patent Respiratory effort is even, unlabored, Respiratory pattern is regular, symmetrical. Respiratory: Reports cough that is. Derm: Skin is intact, is healthy with good turgor, Skin is pink, warm \T\ dry. normal. Musculoskeletal: Circulation, motion, and sensation intact. Range of motion: intact in all extremities, Swelling absent. Vital Signs: 09:22 BP 135 / 97; Pulse 98; Resp 20; Temp 97.9(O); Pulse Ox 96% ; Weight 65.77 kg; Height 5 ld1 ft. 2 in. (157.48 cm); Pain 0/10; 09:22 Body Mass Index 26.52 (65.77 kg, 157.48 cm) ld1 ED Course: 09:12 Patient arrived in ED. mr 09:14 Randy Rosales MD is Attending Physician. sp3 09:22 Arm band placed on right wrist. ld1 09:24 Triage completed. ld1 10:04 Natalya Lund, FELIX is Primary Nurse. ss 10:11 Patient has correct armband on for positive identification. Bed in low position. Call ss light in reach. 10:11 No provider procedures requiring assistance completed. Patient did not have IV access ss during this emergency room visit. 10:19 CXR XRAY In Process Unspecified. EDMS Administered Medications: 10:04 Drug: DuoNeb (albuterol 2.5 mg, ipratropium 0.5 mg) (3:1) (2.5 mg - 0.5 mg) 3 ml Route: ss Nebulizer; 10:47 Follow up: Response: No adverse reaction ss 10:04 Drug: predniSONE 40 mg Route: PO; ss 10:47 Follow up: Response: No adverse reaction ss Medication: 10:11 VIS not applicable for this client. ss Outcome: 10:25 Discharge ordered by . sp3 10:46 Discharged to home ambulatory. ss 10:46 Condition: good 10:46 Discharge instructions given to patient, family, Instructed on discharge instructions, follow up and referral plans. medication usage, Demonstrated understanding of instructions, follow-up care, medications, Prescriptions given X 4. 10:47 Patient left the ED. ss Signatures: Dispatcher [employer] LAURENME Renate SanchezNatalya ye RN RN ss Alley Aguillon RN RN ld1 Randy Rosales MD MD sp3 Corrections: (The following items were deleted from the chart) 09:28 09:22 Chief complaint: Patient states: COPD flare up - felt faint, used my inhaler and ld1 it didn't help. ld1
--- NOTE | 2022-09-28 10:25 | EDPHYS ---
Physician Documentation [facility] Name: Haleigh Torres Age: 57 yrs Sex: Female : 1965 Arrival Date: 09/28/2022 Time: 09:12 Bed 11 Private MD: LAUREN Physician Randy Rosales HPI: 09/28 09:37 This 57 yrs old Female presents to ER via Ambulatory with complaints of COPD sp3 Exacerbation, Cough. 09:37 57-year-old female with history of COPD presents again after recent visit where she sp3 received an inhaler for continued symptoms of cough wheezing and general sickness. She denies fever, rhinorrhea, productive cough, any other symptoms. She states that she feels like it is her COPD. She is using her nebulizer Nebules twice a day before and after work. She is out of her inhaler and is on no other medications including steroids or antibiotics. On review of systems she denies headache, neck pain, chest pain, abdominal pain, back pain, nausea, vomiting, diarrhea, rash, fever, URI symptoms, travel history, known sick contacts, or any other findings at this time.. Historical: - Allergies: 09:22 No Known Allergies; ld1 - Home Meds: 09:22 Albuterol Inhl [Active]; ld1 - PMHx: 09:22 COPD; ld1 - PSHx: 09:22 None; ld1 - Immunization history:: Adult Immunizations up to date, Client reports receiving the 2nd dose of the Covid vaccine. - Social history:: Smoking status: Patient reports the use of cigarette tobacco products, smokes one-half pack cigarettes per day, Patient/guardian denies using alcohol. ROS: 09:39 Constitutional: Negative for fever, chills, and weight loss, Eyes: Negative for injury, sp3 pain, redness, and discharge, ENT: Negative for injury, pain, and discharge, Neck: Negative for injury, pain, and swelling, Cardiovascular: Negative for chest pain, palpitations, and edema, Abdomen/GI: Negative for abdominal pain, nausea, vomiting, diarrhea, and constipation, Back: Negative for injury and pain, MS/Extremity: Negative for injury and deformity, Skin: Negative for injury, rash, and discoloration, Neuro: Negative for headache, weakness, numbness, tingling, and seizure, Psych: Negative for depression, anxiety, suicide ideation, homicidal ideation, and hallucinations, Allergy/Immunology: Negative for hives, rash, and allergies. 09:39 All other systems are negative. Exam: 09:39 Constitutional: This is a well developed, well nourished patient who is awake, alert, sp3 and in no acute distress. Head/Face: Normocephalic, atraumatic. Eyes: Pupils equal round and reactive to light, extra-ocular motions intact. Lids and lashes normal. Conjunctiva and sclera are non-icteric and not injected. Cornea within normal limits. Periorbital areas with no swelling, redness, or edema. ENT: Nares patent. No nasal discharge, no septal abnormalities noted. External auditory canals are clear. Oropharynx with no redness, swelling, or masses, exudates, or evidence of obstruction, uvula midline. Mucous membranes moist. Neck: Trachea midline, no thyromegaly or masses palpated, and no cervical lymphadenopathy. Supple, full range of motion without nuchal rigidity, or vertebral point tenderness. No Meningismus. Chest/axilla: Normal chest wall appearance and motion. Nontender with no deformity. No lesions are appreciated. Cardiovascular: Regular rate and rhythm with a normal S1 and S2. No gallops, murmurs, or rubs. Normal PMI, no JVD. No pulse deficits. Abdomen/GI: Soft, non-tender, with normal bowel sounds. No distension or tympany. No guarding or rebound. No evidence of tenderness throughout. Back: No spinal tenderness. No costovertebral tenderness. Full range of motion. Skin: Warm, dry with normal turgor. Normal color with no rashes, no lesions, and no evidence of cellulitis. MS/ Extremity: Pulses equal, no cyanosis. Neurovascular intact. Full, normal range of motion. Neuro: Awake and alert, GCS 15, oriented to person, place, time, and situation. Cranial nerves II-XII grossly intact. Motor strength 5/5 in all extremities. Sensory grossly intact. Cerebellar exam normal. Normal gait. Psych: Awake, alert, with orientation to person, place and time. Behavior, mood, and affect are within normal limits. 09:39 Respiratory: Exam demonstrates mild scattered wheezes without evidence of respiratory difficulty, stridor, or tachypnea.. Vital Signs: 09:22 BP 135 / 97; Pulse 98; Resp 20; Temp 97.9(O); Pulse Ox 96% ; Weight 65.77 kg; Height 5 ld1 ft. 2 in. (157.48 cm); Pain 0/10; 09:22 Body Mass Index 26.52 (65.77 kg, 157.48 cm) ld1 MDM: 09:30 Patient medically screened. sp3 09:40 Data reviewed: vital signs, nurses notes. ED course: 61-year-old female with COPD sp3 exacerbation mild in nature. Will obtain chest x-ray and administer nebulizer here in the ED. Will discharge patient home as long as there is no pneumonia on MDI albuterol, prednisone, Z-Shalom, Tessalon Perles. Not highly suspicious for pneumonia, acute coronary syndrome, pulmonary embolism, sepsis, shock, or any other critical findings at this time.. 09/28 09:35 Order name: CXR XRAY sp3 Administered Medications: 10:04 Drug: DuoNeb (albuterol 2.5 mg, ipratropium 0.5 mg) (3:1) (2.5 mg - 0.5 mg) 3 ml Route: ss Nebulizer; 10:47 Follow up: Response: No adverse reaction 10:04 Drug: predniSONE 40 mg Route: PO; 10:47 Follow up: Response: No adverse reaction ss Disposition Summary: 09/28/22 10:25 Discharge Ordered Location: Home sp3 Condition: Stable sp3 Diagnosis - COPD/ Chronic obstructive pulmonary disease with (acute) exacerbation sp3 Followup: sp3 - With: Private Physician - When: Upon discharge from the Emergency Department - Reason: Continuance of care Discharge Instructions: - Discharge Summary Sheet sp3 - Chronic Obstructive Pulmonary Disease sp3 Forms: - Medication Reconciliation Form sp3 - Thank You Letter sp3 - Antibiotic Education sp3 - Prescription Opioid Use sp3 - Work release form Prescriptions: - Zithromax Z-Shalom 250 mg Oral Tablet - take 1 tablet by ORAL route as directed for 5 days Day 1 - take two (2) tablets sp3 one time. Day 2, 3, 4 , 5 take one (1) tablet once daily.; 6 tablet; Refills: 0, Product Selection Permitted - Prednisone 20 mg Oral Tablet - take 2 tablets by ORAL route once daily for 5 days; 10 tablet; Refills: 0, sp3 Product Selection Permitted - benzonatate 100 mg Oral Capsule - take 1 capsule by ORAL route 3 times per day; 30 capsule; Refills: 0, Product sp3 Selection Permitted - albuterol sulfate 90 mcg/actuation Inhalation HFA aerosol inhaler - inhale 2 puff by INHALATION route every 4 hours; 1 Pump; Refills: 0, Product jmm Selection Permitted Signatures: Dispatcher [employer] Natalya Ernandez RN RN ss Alley Aguillon RN RN ld1 Randy Rosales MD MD sp3
[2022-09-28 10:59] VITALS: BP 135/97; TEMP 97.9; O2SAT 96
== END 2022-09-28 10:47 | disposition home or self-care (01) ==
LOC: ER 09:06
DX: J44.1 Chronic obstructive pulmonary disease with (acute) exacerbation (principal); F17.210 Nicotine dependence, cigarettes, uncomplicated
CPT/HCPCS: 71045; J7512; J7613; J7644

== ENCOUNTER 2022-10-15 03:42 | Observation (INO) | payer OTHER ==
[2022-10-15 04:18] LABS: Absolute Lymphocytes (CBC) 1.9 K/uL (0.7-4.9); Hematocrit 43.2 % (36.0-45.0); Lymphocytes % 27.4 % (15.3-44.8); MCV 90.4 fL (80-100); MPV 8.8 fL (7.6-11.3); RBC Red Blood Cell Count 4.78 M/uL (3.86-4.86)
[2022-10-15 04:24] LABS: Protime INR 0.96
[2022-10-15 04:35] LABS: Potassium 3.5 mmol/L (3.5-5.1); Troponin High Sensitivity 29.3 pg/mL (<58.9)
[2022-10-15 04:49] LABS: SARS-CoV-2 Antigen Rapid Res Negative (Negative)
[2022-10-15] MEDS ORDERED: LEVALBUTEROL 1.25 MG/3 ML NEB ONE (05:57)
[2022-10-15] MEDS ORDERED: MORPHINE 4 MG/ML SYR ONE (05:57)
--- NOTE | 2022-10-15 06:42 | ER ---
Nurse's Notes [facility] Name: Haleigh Torres Age: 57 yrs Sex: Female : 1965 Arrival Date: 10/15/2022 Time: 03:45 Bed 24 Private MD: Diagnosis: Chest pain, unspecified;Unstable angina Presentation: 10/15 03:48 Chief complaint: EMS states: She called EMS for chest pain that started today at work kd3 after lifting something heavy. She wasn't going to go to the hospital because she thought she just pulled something but the pain is in the center of her chest and is making the left arm numb. She has close family history of heart attacks at a young age. Coronavirus screen: Vaccine status: Patient reports being unvaccinated. Ebola Screen: No symptoms or risks identified at this time. Initial Sepsis Screen: Does the patient meet any 2 criteria? No. Patient's initial sepsis screen is negative. Does the patient have a suspected source of infection? No. Patient's initial sepsis screen is negative. Risk Assessment: Do you want to hurt yourself or someone else? Patient reports no desire to harm self or others. Onset of symptoms was October 15, 2022. 03:48 Method Of Arrival: EMS: [facility] kd3 03:48 Acuity: ANICETO 3 kd3 Triage Assessment: 03:51 General: Appears uncomfortable, Behavior is anxious, crying. Pain: Complains of pain in kd3 mid-sternal area Pain radiates to left arm. Neuro: Level of Consciousness is awake, alert, obeys commands, Oriented to person, place, time, situation. Cardiovascular: Patient's skin is warm and dry. Respiratory: Airway is patent Trachea midline Respiratory effort is even, unlabored, Respiratory pattern is regular, symmetrical. Historical: - Home Meds: 03:51 Albuterol Inhl [Active]; kd3 - PMHx: 03:51 COPD; kd3 - Immunization history:: Adult Immunizations up to date. - Social history:: Smoking status: Patient reports the use of cigarette tobacco products, smokes one-half pack cigarettes per day. - Family history:: Mother has/had heart disease, Sister has/had heart disease. - Hospitalizations: : No recent hospitalization is reported. Screenin:52 [facility] ED Fall Risk Assessment (Adult) History of falling in the last 3 months, kd3 including since admission No falls in past 3 months (0 pts) Confusion or Disorientation No (0 pts) Intoxicated or Sedated No (0 pts) Impaired Gait No (0 pts) Mobility Assist Device Used No (0 pt) Altered Elimination No (0 pt) Score/Fall Risk Level 0 - 2 = Low Risk Maintained a safe environment. Abuse screen: Denies threats or abuse. Denies injuries from another. Nutritional screening: No deficits noted. Tuberculosis screening: No symptoms or risk factors identified. Assessment: 04:27 Reassessment: DDimer [id number], provider notified. vc1 05:39 General: pt restless in bed "that pain is coming back". as6 06:00 General: Appears uncomfortable, Behavior is anxious. Pain: Complains of pain in left kd3 arm and mid-sternal area. Neuro: Level of Consciousness is awake, alert, obeys commands, Oriented to person, place, time, situation. Cardiovascular:. 07:00 Reassessment: Report received from warehouse worker 2nd shift RN. ll1 07:51 Reassessment: No changes from previously documented assessment. Waiting for admission ll1 orders. Vital Signs: 03:48 BP 139 / 97; Pulse 95; Resp 18; Temp 98.2(O); Pulse Ox 99% on R/A; Weight 68.04 kg; kd3 Height 5 ft. 2 in. (157.48 cm); Pain 7/10; 05:39 BP 167 / 115; Pulse 72; Resp 28 S; Pulse Ox 98% on R/A; as6 06:00 BP 153 / 93; Pulse 92; Resp 14; Pulse Ox 99% on R/A; kd3 06:51 BP 147 / 119; Pulse 74; Resp 19 S; Pulse Ox 97% on Nebulizer Mask; as6 07:45 BP 126 / 79; Pulse 90; Resp 20; Pulse Ox 93% ; ll1 03:48 Body Mass Index 27.44 (68.04 kg, 157.48 cm) kd3 ED Course: 03:45 Patient arrived in ED. rn 03:45 Karthikeyan Diehl MD is Attending Physician. rn 03:48 Sienna Olson, FELIX is Primary Nurse. kd3 03:51 Triage completed. kd3 03:51 Arm band placed on left wrist. EKG completed in triage. Results shown to MD. kd3 03:52 Patient has correct armband on for positive identification. Placed in gown. Bed in low kd3 position. Side rails up X2. Client placed on continuous cardiac and pulse oximetry monitoring. NIBP monitoring applied. highway administrative engineer on. 04:12 XRAY Chest (1 view) In Process Unspecified. EDMS 05:42 CT Chest For PE Angio In Process Unspecified. EDMS 06:41 Errol Bragg is Hospitalizing Provider. rn 07:44 No provider procedures requiring assistance completed. Patient admitted, IV remains in ll1 place. 08:31 Primary Nurse role handed off by Sienna Olson, FELIX 1 08:31 John Martin, FELIX is Primary Nurse. ll1 09:15 Notified ED physician of a critical lab result(s). Troponin 149.7. kr3 13:08 Inserted saline lock: 20 gauge in left forearm, using aseptic technique. rs5 Administered Medications: 06:01 Drug: morphine 4 mg Route: IVP; Infused Over: 4 mins; Site: right antecubital; kd3 07:47 Follow up: Response: No adverse reaction; Pain is decreased; RASS: Alert and Calm (0) ll1 06:01 Drug: Xopenex (levalbuterol) 1.25 mg Route: Inhalation; kd3 07:47 Follow up: Response: No adverse reaction [facility] Medication: 03:52 VIS not applicable for this client. kd3 Outcome: 06:41 Decision to Hospitalize by Provider. rn 07:45 Admitted to ER Hold. Please see [facility] for further documentation. ll1 07:45 Condition: stable 07:45 Instructed on the need for admit. 14:29 Patient left the ED. rs5 Signatures: Dispatcher [employer] EDMS Karthikeyan Diehl MD MD rn Lewis, Lynsay, RN RN ll1 Jorge Stark RN RN as6 Sienna Olson RN RN kd3 Loraine Johnston RN RN vc1 Karolina Devries RN RN [id number] Josué Issa rs5
--- NOTE | 2022-10-15 06:42 | EDPHYS ---
Physician Documentation [facility] Name: Haleigh Torres Age: 57 yrs Sex: Female : 1965 Arrival Date: 10/15/2022 Time: 03:45 Bed 24 Private MD: ED Physician Karthikeyan Diehl HPI: 10/15 03:55 This 57 yrs old Female presents to ER via EMS with complaints of chest pain. rn 03:55 The patient or guardian reports chest pain that is located primarily in the substernal rn area. Onset: yesterday. The pain radiates to the left arm, the left shoulder, left neck. Associated signs and symptoms: Pertinent positives: diaphoresis, shortness of breath, Pertinent negatives: cough, headache, lower extremity swelling. The chest pain is described as a heaviness, a pressure. Duration: The patient or guardian reports multiple episodes. Modifying factors: The symptoms are alleviated by nothing. the symptoms are aggravated by exertion. Severity of pain: At its worst the pain was moderate in the emergency department the pain is unchanged. The patient has not experienced similar symptoms in the past. The patient has not recently seen a physician. Historical: - Home Meds: 03:51 Albuterol Inhl [Active]; kd3 - PMHx: 03:51 COPD; kd3 - Immunization history:: Adult Immunizations up to date. - Social history:: Smoking status: Patient reports the use of cigarette tobacco products, smokes one-half pack cigarettes per day. - Family history:: Mother has/had heart disease, Sister has/had heart disease. - Hospitalizations: : No recent hospitalization is reported. ROS: 03:55 Constitutional: Negative for fever, chills, and weight loss, Eyes: Negative for injury, rn pain, redness, and discharge, Neck: Negative for injury, pain, and swelling, Cardiovascular: Negative for palpitations, and edema, Respiratory: Negative for wheezing, and pleuritic chest pain, Abdomen/GI: Negative for abdominal pain, nausea, vomiting, diarrhea, and constipation, Back: Negative for injury and pain, MS/Extremity: Negative for injury and deformity, Skin: Negative for injury, rash, and discoloration, Neuro: Negative for headache, weakness, numbness, tingling, and seizure. Exam: 03:55 Constitutional: This is a well developed, well nourished patient who is awake, alert, rn appears anxious Head/Face: Normocephalic, atraumatic. Cardiovascular: Regular rate and rhythm. No pulse deficits. Respiratory: No increased work of breathing, no retractions or nasal flaring. Abdomen/GI: soft, non-tender Skin: Warm, dry MS/ Extremity: Pulses equal, no cyanosis. Neurovascular intact. Full, normal range of motion. Equal circumference. Neuro: Awake and alert, GCS 15 05:51 ECG was reviewed by the Attending Physician. rn Vital Signs: 03:48 BP 139 / 97; Pulse 95; Resp 18; Temp 98.2(O); Pulse Ox 99% on R/A; Weight 68.04 kg; kd3 Height 5 ft. 2 in. (157.48 cm); Pain 7/10; 05:39 BP 167 / 115; Pulse 72; Resp 28 S; Pulse Ox 98% on R/A; as6 06:00 BP 153 / 93; Pulse 92; Resp 14; Pulse Ox 99% on R/A; kd3 06:51 BP 147 / 119; Pulse 74; Resp 19 S; Pulse Ox 97% on Nebulizer Mask; as6 07:45 BP 126 / 79; Pulse 90; Resp 20; Pulse Ox 93% ; ll1 03:48 Body Mass Index 27.44 (68.04 kg, 157.48 cm) kd3 MDM: 03:45 Patient medically screened. rn 04:50 Differential diagnosis: acute myocardial infarction, acute pericarditis, anxiety, rn coronary artery disease chest wall pain, pleurisy, pneumothorax, pulmonary embolus, stable angina, unstable angina. HEART Score: History: Highly Suspicious (2), ECG: Non specific repolarization disturbance / LBTB / PM (1), Age: > 45 and < 65 years (1), Risk Factors: 1 or 2 risk factors (1), Troponin: < or = 1 x Normal Limit (0), Total Score = 5. The patient was not given aspirin in the Emergency Department. Administered by EMS. Data reviewed: vital signs, nurses notes, lab test result(s), EKG, radiologic studies, plain films, and as a result, I will admit patient. Consideration of Admission/Observation Patient was admitted/placed on observation. Escalation of care including admission/observation considered. Management of patient was discussed with the following: Hospitalist: Management and case discussed with hospitalist. Independent interpretation of the following test(s) in the Emergency Department EKG: See my EKG interpretation above X-Ray: My interpretation is CXR images neg for pneumonia. 06:39 Care significantly affected by the following chronic conditions: Chronic Obstructive rn Pulmonary Disease. Counseling: I had a detailed discussion with the patient and/or guardian regarding: the historical points, exam findings, and any diagnostic results supporting the discharge/admit diagnosis, lab results, radiology results, the need for further work-up and treatment in the hospital. Response to treatment: the patient's symptoms have mildly improved after treatment, and as a result, I will admit patient. ED course: Pt with neg CT PE, trop neg, but great story for ACS and dynamic t wave changes on ECG. no STEMI, will admit for further evaluation and cardiac w/u. . 10/15 03:45 Order name: Basic Metabolic Panel; Complete Time: 04:49 rn 10/15 03:45 Order name: CBC with Diff; Complete Time: 04:49 rn 10/15 03:45 Order name: D-Dimer; Complete Time: 04:49 rn 10/15 03:45 Order name: NT PRO-BNP; Complete Time: 04:49 rn 10/15 03:45 Order name: PT-INR; Complete Time: 04:49 rn 10/15 03:45 Order name: Troponin HS; Complete Time: 04:49 rn 10/15 03:45 Order name: XRAY Chest (1 view) rn 10/15 03:55 Order name: SARS RAPID; Complete Time: 04:50 rn 10/15 04:49 Order name: CT Chest For PE Angio rn 10/15 09:15 Order name: Troponin High Sensitivity [facility] 10/15 13:49 Order name: PTT, Activated Partial Thromb [facility] 10/15 14:26 Order name: Troponin High Sensitivity [facility] 10/15 03:45 Order name: EKG; Complete Time: 03:46 rn 10/15 03:45 Order name: Cardiac monitoring; Complete Time: 04:01 10/15 03:45 Order name: EKG - Nurse/Tech; Complete Time: 04:01 10/15 03:45 Order name: IV Saline Lock; Complete Time: 04:01 10/15 03:45 Order name: Labs collected and sent; Complete Time: 04:01 10/15 03:45 Order name: O2 Per Protocol; Complete Time: 04: rn 10/15 03:45 Order name: O2 Sat Monitoring; Complete Time: 04:10 rn EC:51 Rate is 64 beats/min. Rhythm is regular. QRS [place] is Normal. ID interval is normal. QRS rn interval is normal. QT interval is normal. No Q waves. T waves are Inverted in leads V1, V2. No ST changes noted. Clinical impression: NSR w/ Non-specific ST/T Changes. Interpreted by me. Reviewed by me. Administered Medications: 06:01 Drug: morphine 4 mg Route: IVP; Infused Over: 4 mins; Site: right antecubital; kd3 07:47 Follow up: Response: No adverse reaction; Pain is decreased; RASS: Alert and Calm (0) ll1 06:01 Drug: Xopenex (levalbuterol) 1.25 mg Route: Inhalation; kd3 07:47 Follow up: Response: No adverse reaction ll1 Disposition Summary: 10/15/22 06:41 Hospitalization Ordered Hospitalization Status: Observation rn Provider: Errol Bragg rn Condition: Stable rn Problem: new rn Symptoms: have improved rn Bed/Room Type: Standard rn Location: [facility] ER HOLD(10/15/22 11:17) jl7 Room Assignment: ERHOLD-(10/15/22 11:17) jl7 Diagnosis - Chest pain, unspecified rn - Unstable angina rn Forms: - Medication Reconciliation Form rn - SBAR form rn Signatures: Dispatcher [employer] EDKarthikeyan Anderson MD MD rn Leal, Jahala RN RN [id number] Sienna Olson RN RN kd3 John Martin RN ll1 Corrections: (The following items were deleted from the chart) 11: 06:41 Telemetry/MedSurg (observation) rachelle cooley 11:17 06:41 rachelle cooley
--- NOTE | 2022-10-15 07:52 | P.HP ---
Certification for Inpatient Patient admitted to: Observation With expected LOS: <2 Midnights Practitioner: I am a practitioner with admitting privileges, knowledge of patient current condition, hospital course, and medical plan of care. Services: Services provided to patient in accordance with Admission requirements found in Title 42 Section 412.3 of the Code of Federal Regulations Patient History Date of Service: 10/15/22 Reason for admission: Chest pain History of Present Illness: 57-year-old woman with a history of COPD, current smoker presented to the emergency department with a complaint of chest pain of 1 day duration. Patient reported intermittent chest pain, substernal, radiating to the left arm that woke him up from sleep early this morning. She stated her chest pain was associated with shortness of breath and diaphoresis. No known relieving or aggravating factors. Patient was given aspirin enroute to the ER by EMS. EKG demonstrated nonspecific ST-T wave changes. Initial troponin negative. D-dimer elevated but CT pulmonary angiogram was negative for pulm embolism. Patient with significant family history coronary artery disease. She has high risk factors. She is placed under observation for further management. Allergies No Known Allergies Allergy (Verified 01/28/21 14:11) Home Medications: Benzonatate [Tessalon Perle] 100 mg PO Q8H PRN 5 Days #15 cap 01/29/21 predniSONE [Deltasone] 20 mg PO BID 5 Days #10 tab 01/29/21 Albuterol Inhaler [Ventolin Inhaler*] 2 puff IH BID 10/15/22 - Past Medical/Surgical History Diabetic: No -: COPD -: face reconstruction from dog attack as a child - Family History Sister -: Heart disease (Sister and mother), Diabetes, Cancer - Social History Smoking Status: Current every day smoker Alcohol use: No CD- Drugs: No Caffeine use: Yes Review of Systems Other: Except as documented, all other systems reviewed and negative. Physical Examination - Physical Exam General: Alert, In no apparent distress, Oriented x3 HEENT: Mucous membr. moist/pink Neck: JVD not distended Respiratory: Clear to auscultation bilaterally, Normal air movement Cardiovascular: No edema, Regular rate/rhythm, Normal S1 S2 Gastrointestinal: Soft and benign, Non-distended, No tenderness Musculoskeletal: No swelling, No tenderness Integumentary: No rashes, No cyanosis Neurological: Normal strength at 5/5 x4 extr, Cranial nerves 3-12 intact Lymphatics: No axilla or inguinal lymphadenopathy, Other (No lymphedema) - Studies Laboratory Data (last 24 hrs) 10/15/22 04:02: PT 10.6, INR 0.96 10/15/22 04:02: WBC 7.00, Hgb 14.7, Hct 43.2, Plt Count 94 L 10/15/22 04:02: Sodium 140, Potassium 3.5, BUN 17, Creatinine 1.12 H, Glucose 135 H Assessment and Plan - Problems (Diagnosis) (1) Chest pain Current Visit: Yes Status: Acute (2) COPD (chronic obstructive pulmonary disease) Current Visit: Yes Status: Acute (3) Tobacco use Current Visit: Yes Status: Acute (4) NSTEMI (non-ST elevated myocardial infarction) Current Visit: Yes Status: Acute - Plan Admit the patient to the medical floor. Second set of troponin elevated. Continue to trend troponin. Start heparin drip Patient placed on metoprolol and aspirin. Echocardiogram done and the result is pending. Cardiology consult Supportive measures with morphine as needed. Check lipid profile, screen for diabetes. Bronchodilators as needed for COPD. - Advance Directives Does patient have a Living Will: No Does patient have a Durable POA for Healthcare: No
[2022-10-15] MEDS ORDERED: NITROGLYCERIN 0.4 MG/TAB SL PRN (08:11)
[2022-10-15] MEDS ORDERED: MORPHINE 2 MG/ML SYR IV PRN (08:11)
[2022-10-15] MEDS ORDERED: ASPIRIN 81 MG CHEWABLE TABLET ONE (08:19)
[2022-10-15] MEDS: ASPIRIN EC 81 MG TAB PO SCH (08:49)
--- NOTE | 2022-10-15 11:00 | RAD REPORT ---
EXAM DESCRIPTION: RAD - Chest Single View - 10/15/2022 4:10 am CLINICAL HISTORY: The patient is 57 years old and is Female; CHEST PAIN TECHNIQUE: Frontal view of the chest. COMPARISON: May 30, 2022. FINDINGS: Lungs: Unremarkable. No consolidation. Pleural space: Unremarkable. No pneumothorax. Heart: Curvilinear lucency along the right heart border which is thought to be due to artifact b ut pneumomediastinum cannot be excluded. Mediastinum: Unremarkable. Bones/joints: Unremarkable. IMPRESSION: No consolidation. Curvilinear lucency along the right heart border which is thought to b e due to artifact but pneumomediastinum cannot be excluded. Electronically signed by: Sujit Gtz MD 10/15/2022 4:17 AM MEDIA ASSISTANT Due to temporary technical issues with the PACS/Fluency reporting system, reports are being signed by the in house radiologists without review as a courtesy to insure prompt reporting. The interpreting radiologist is fully responsible for the content of the report.
[2022-10-15] MEDS: METOPROLOL TAR 25 MG TAB PO SCH ×2 (12:30→21:31)
[2022-10-15] MEDS ORDERED: HEPARIN/D5W 25,000 UNIT/500 ML BAG IV SCH (13:00)
--- NOTE | 2022-10-15 13:18 | EKG ---
Test Date: 2022-10-15 Test Time: 05:47:52 Cmo & President: ROGER MEASUREMENT RESULTS: Intervals: Rate: 64 NV: 156 QRSD: 76 QT: 432 QTc: 445 [place]: P: 77 NV: 156 QRS: 86 T: 93 INTERPRETIVE STATEMENTS: Normal sinus rhythm Nonspecific ST and T wave abnormality Abnormal ECG Compared to ECG 05/30/2022 23:01:39 Sinus tachycardia no longer present Atrial abnormality no longer present ST (T wave) deviation still present Electronically Signed On 10-15-22 13:17:53 INLAYER SILVER by Tom Ma
--- NOTE | 2022-10-15 13:25 | EKG ---
Test Date: 2022-10-15 Test Time: 03:43:31 Graphic Manager: ROGER MEASUREMENT RESULTS: Intervals: Rate: 95 DC: 164 QRSD: 70 QT: 374 QTc: 469 [place]: P: 81 DC: 164 QRS: 84 T: 73 INTERPRETIVE STATEMENTS: Normal sinus rhythm Biatrial enlargement ST abnormality, possible digitalis effect Abnormal ECG Compared to ECG 05/30/2022 23:01:39 Sinus tachycardia no longer present ST (T wave) deviation still present Electronically Signed On 10-15-22 13:20:21 RIBBON LAP MACHINE TENDER by Tom Ma
[2022-10-15] MEDS ORDERED: HEPARIN/D5W 25,000 UNIT/500 ML BAG IV ONE (13:35)
[2022-10-15] MEDS ORDERED: HEPARIN 5000 UNIT/ML 1 ML VIAL ONE ×2 (13:35→13:55)
[2022-10-15] MEDS ORDERED: MIDAZOLAM HCL 2 MG/2 ML INJ ONE (13:55)
[2022-10-15] MEDS ORDERED: VERAPAMIL HCL 10 MG/4 ML VIAL IV ONE (13:55)
[2022-10-15] MEDS ORDERED: HEPA 1000U/500MLS 2,000 UNIT/1,000 ML BAG IV ONE (13:55)
[2022-10-15] MEDS ORDERED: FENTANYL CITR 100 MCG/2 ML ONE (13:55)
[2022-10-15] MEDS ORDERED: LIDOCAINE 1% 20 ML MDV ONE (13:55)
[2022-10-15] MEDS ORDERED: ATROPINE SULF 1 MG/10 ML SYR IV ONE (13:56)
[2022-10-15] MEDS ORDERED: TICAGRELOR 90 MG TABLET PO ONE (13:56)
[2022-10-15] MEDS ORDERED: HEPARIN 10,000 UNIT/10 ML VIAL IV ONE (13:56)
[2022-10-15] MEDS ORDERED: CLOPIDOGREL 75 MG TABLET ONE (13:56)
--- NOTE | 2022-10-15 14:44 | ECHO ---
HEIGHT: 5 ft 2 in WEIGHT: 137 lb 8 oz DATE OF STUDY: 10/15/[address]: 2-DIMENSIONAL: YES M.MODE: YES DOPPLER: YES COLOR FLOW: YES TDS: PORTABLE: DEFINITY: BUBBLE STUDY: DIAGNOSIS: UNSTABLE ANGINA CARDIAC HISTORY: CATHERIZATION: NO SURGERY: NO PROSTHETIC VALVE: NO PACEMAKER: NO MEASUREMENTS (cm) DIASTOLIC (NORMALS) SYSTOLIC (NORMALS) IVSd 0.9 (0.6-1.2) LA Diam (1.9-4.0) LVEF 66% LVIDd 3.9 (3.5-5.7) LVIDs 2.5 (2.0-3.5) %FS 35% LVPWd 0.7 (0.6-1.2) Ao Diam 2.5 (2.0-3.7) 2 DIMENSIONAL ASSESSMENT: RIGHT ATRIUM: NORMAL LEFT ATRIUM: NORMAL RIGHT VENTRICLE: NORMAL LEFT VENTRICLE: NORMAL TRICUSPID VALVE: NORMAL MITRAL VALVE: NORMAL PULMONIC VALVE: NORMAL AORTIC VALVE: NORMAL PERICARDIAL EFFUSION: NONE AORTIC ROOT: NORMAL LEFT VENTRICULAR WALL MOTION: NORMAL DOPPLER/COLOR FLOW: MILD MITRAL REGURGITATION COMMENTS: 1. NORMAL LEFT VENTRICULAR EJECTION FRACTION 60-65% 2. NORMAL WALL MOTION 3. MILD MITRAL REGURGITATION 4. NORMAL DIASTOLIC FUNCTION TECHNOLOGIST: MARIA DOLORES BOSWELL
[2022-10-15] MEDS ORDERED: ASPIRIN 325 MG TAB ONE (14:48)
--- NOTE | 2022-10-15 16:26 | OP ---
Date of Procedure: 10/15/2022 Surgeon: SEAMUS IRIZARRY Procedures Performed: 1.Selective coronary angiogram. 2.Left heart catheterization. 3.PCI of severe distal RCA stenosis 99%. This is the culprit for the MO. I used initially 3.5 x 12 mm Synergy drug-eluting stent and there was a plaque shift distally. Then, I placed another 2.75 x 12 mm Synergy drug-eluting stent overlapping the first 1. Indication: Non-ST elevation myocardial infarction. Access: Right radial artery 6-Malay closed with TR band. Complications: None. Bleeding: Less than 10 mL. Anesthesia: Total sedation time was 50 minutes. Used fentanyl and Versed. Description Of Procedure: After risks, benefits, alternatives were explained, the patient agreed to the procedure and signed informed consent. The patient was brought into the cardiac catheterization laboratory, prepped and draped in the usual sterile fashion. Then, I accessed right radial artery us ing pediatric micropuncture, placed 6-Malay Slender sheath and took a 5-Malay Cordova 4.0 catheter in to the aortic root, engaged left main and right coronary artery, took standard views and the catheter was pushed over the wire into the LV, measured the LVEDP and pullback did not record any gradient. Then, I gave systemic heparin to assure ACT level above 250 and gave 600 Plavix and 325 mg aspirin an d I took a 6-Malay JR4 guide into the aortic root over a J-wire, engaged the RCA, took short Run-Thr ough wire into the RCA and placed it distally, and I used a 3.5 mm x 8 Compliant balloon to re-dilate the lesion. The lesion expanded very well and then placed a 3.5 x 12 mm Synergy drug-eluting stent. There was a plaque shift and caused some haziness at the end and narrowing right before the bifurca tion, so I placed another 2.75 x 12 mm Synergy drug-eluting stent overlapping with the first one and extending into the PDA, excellent angiographic result at the end. Then, I removed the wire and perfo rmed final angiogram, which was otherwise satisfactory. Then, I removed the guide and the sheath, pl aced TR band with good hemostasis. Findings: 1.Left main; large and normal. 2.LAD; large vessel with mid 30% stenosis, mid to distal 20% stenosis, normal diagonal branches. 3.Left circumflex; moderate size, nondominant, and normal. 4.RCA; very large and dominant with mid 30% stenosis and distal 99% stenosis, status post successful PCI as above. 5.Elevated LVEDP at 50 mmHg. Conclusion: 1.Severe distal RCA stenosis 99%, which is a culprit for the MO, status post successful PCI as above . 2.Mildly elevated LVEDP. 3.Mild coronary artery disease elsewhere. Recommendations: Aspirin, statin, and Plavix and to quit smoking or any kind of drugs was encouraged . SR/MODL Voice ID: [id number] Report ID: [id number]
--- NOTE | 2022-10-15 17:26 | CON ---
Date of Consultation: 10/15/2022 Reason For Consultation: Chest pain. History Of Present Illness: A 57-year-old female, who has history of COPD, active smoker, presented with chest pain, started last night, on and off, initially was on exertion and then became at rest, r adiates to her jaw and left upper extremity. Upon evaluation in the emergency room, troponin was sli ghtly elevated. Past Medical History: COPD. Medications: Refer to reconciliation sheet for detailed list. Allergies: NO KNOWN DRUG ALLERGIES. Family History: No premature coronary artery disease or cancer. Social History: She is a smoker. Does not drink or use any drugs. Review of Systems: All systems reviewed and they were negative except what mentioned in HPI. Physical Examination: Vital Signs: Reviewed. Head and Neck: Pupils are equal, reactive to light. Intact eye movements. No JVD. No cervical lym phadenopathy. Neck is supple. Thyroid is not enlarged. Lungs: Clear to auscultation bilaterally. No rhonchi, wheezing, or crackles. No accessory muscle u se. Heart: Regular rate and rhythm. No extra sounds. Abdomen: Soft, nontender. Bowel sounds positive. No organomegaly. No masses or hernia. No rigidi ty or rebound. Extremities: No edema, clubbing, or cyanosis. Intact pulses. Skin: No rash. Neurologic: Alert, awake, oriented x3. No acute focal deficits appreciated. Investigations: BUN is 17, creatinine 1.1, and troponin is 155 and hemoglobin was 14.7. Assessment And Recommendations: 1.Acute non-ST elevation myocardial infarction. 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 Doing well now. Observe overnight. Con tinue aspirin 81 mg daily, Plavix 75 mg daily. 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 Also start her on low dose beta-dasia, metoprolol extended release 25 mg daily and if the blood pressure allows to start low-dose ASHLEY inhibitor. Echo was reviewed and eject ion fraction is normal. 2.Hypertension. Blood pressure will improve with the above addition of medications. 3.Active smoker. She was counseled against smoking in details. SR/MODL Voice ID: [id number] Report ID: [id number]
[2022-10-15] MEDS ORDERED: ATORVASTATIN 40 MG TAB PO SCH (21:10)
--- NOTE | 2022-10-15 22:25 | RAD REPORT ---
EXAM DESCRIPTION: CT - Chest For Pe Angio - 10/15/2022 6:55 am CLINICAL HISTORY: The patient is 57 years old and is Female; CHEST PAIN TECHNIQUE: Axial computed tomographic angiography images of the chest with intravenous contrast. S agittal and coronal reformatted images were created and reviewed. This CT exam was performed using one or more of the following dose reduction techniques: automated exposure control, adjustment of t he mA and/or kV according to patient size, and/or use of iterative reconstruction technique. MIP re constructed images were created and reviewed. COMPARISON: No relevant prior studies available. FINDINGS: Pulmonary arteries: Unremarkable. No pulmonary embolism. Aorta: Scattered atherosclerotic vascular calcifications. No thoracic aortic aneurysm. Lungs: Unremarkable. No mass. No consolidation. Pleural space: Unremarkable. No significant effusion. No pneumothorax. Heart: Coronary artery calcification. No significant pericardial effusion. No evidence of RV dysfunction. Thyroid: 6 mm hypoattenuating nodule in the right thyroid. Bones/joints: No acute fracture. No dislocation. Soft tissues: Unremarkable. Lymph nodes: Unremarkable. No enlarged lymph nodes. Liver: Nodular contour to the surface of the liver which can be seen with cirrhosis. There may be partially visualized calcification within the liver. IMPRESSION: No acute finding in the chest. No evidence of pulmonary embolism. Electronically signed by: Sujit Gtz MD 10/15/2022 6:26 AM SALES OPERATIONS CONSULTANT Due to temporary technical issues with the PACS/Fluency reporting system, reports are being signed by the in house radiologists without review as a courtesy to insure prompt reporting. The interpreting radiologist is fully responsible for the content of the report.
[2022-10-16] MEDS ORDERED: IPRATROPIUM BROM 0.5MG/2.5ML NEB PRN (02:38)
[2022-10-16] MEDS ORDERED: ALBUTEROL 2.5 MG/3 ML NEB SOL NEB PRN (02:38)
[2022-10-16 04:06] LABS: Absolute Lymphocytes (CBC) 1.7 K/uL (0.7-4.9); Hematocrit 42.2 % (36.0-45.0); MCV 91.4 fL (80-100); MPV 8.9 fL (7.6-11.3); RBC Red Blood Cell Count 4.62 M/uL (3.86-4.86)
[2022-10-16 04:26] LABS: Potassium 4.4 mmol/L (3.5-5.1)
[2022-10-16] MEDS: METOPROLOL TAR 25 MG TAB PO SCH (06:10)
[2022-10-16 08:03] VITALS: BMI 25.1
[2022-10-16] MEDS ORDERED: CLOPIDOGREL 75 MG TABLET PO SCH (09:00)
[2022-10-16] MEDS: ASPIRIN EC 81 MG TAB PO SCH (09:33)
[2022-10-16 10:57] VITALS: O2SAT 98
--- NOTE | 2022-10-16 15:32 | P.DS ---
Admission Date: 10/15/22 Discharge Date: 10/16/22 Disposition: ROUTINE DISCHARGE Discharge Condition: FAIR Reason for Admission: Chest pain - Problems (1) Chest pain Current Visit: Yes Status: Acute (2) COPD (chronic obstructive pulmonary disease) Current Visit: Yes Status: Acute (3) Tobacco use Current Visit: Yes Status: Acute (4) NSTEMI (non-ST elevated myocardial infarction) Current Visit: Yes Status: Acute Brief History of Present Illness: 57-year-old woman with a history of COPD, current smoker presented to the emergency department with a complaint of chest pain of 1 day duration. Patient reported intermittent chest pain, substernal, radiating to the left arm that woke him up from sleep early this morning. She stated her chest pain was associated with shortness of breath and diaphoresis. No known relieving or aggravating factors. Patient was given aspirin enroute to the ER by EMS. EKG demonstrated nonspecific ST-T wave changes. Initial troponin negative. D-dimer elevated but CT pulmonary angiogram was negative for pulm embolism. Patient with significant family history coronary artery disease. She has high risk factors. Patient was admitted for further management. Hospital Course: Patient admitted to the medical floor. Her troponin trended up. She was seen in consultation by cardiology Dr. Ma performed cardiac catheterization. She was noted to have 99% occlusion in the distal RCA which was stented. Echocardiogram showed normal EF. Patient is started on aspirin Plavix and L ipitor and beta-dasia. She is currently asymptomatic and deemed stable for discharge per Dr. Ma. Patient will follow-up with Dr. Ma in the office. Compliance to medication and smoking cessation reemphasized. Vital Signs/Physical Exam: Temp Pulse Resp BP Pulse Ox 97.7 F 83 18 124/79 95 10/16/22 12:00 10/16/22 12:00 10/16/22 12:00 10/16/22 12:00 10/16/22 12:00 General: Alert, In no apparent distress, Oriented x3 HEENT: Mucous membr. moist/pink Neck: Supple, JVD not distended Respiratory: Clear to auscultation bilaterally, Normal air movement Cardiovascular: Regular rate/rhythm, Normal S1 S2 Gastrointestinal: Normal bowel sounds, Soft and benign, Non-distended, No tenderness Musculoskeletal: No swelling, No tenderness Integumentary: No rashes, No erythema, No cyanosis Neurological: Normal strength at 5/5 x4 extr Laboratory Data at Discharge: WBC 6.70 K/uL (4.3-10.9) 10/16/22 03:54 Hgb 14.2 g/dL (12.0-15.0) 10/16/22 03:54 Hct 42.2 % (36.0-45.0) 10/16/22 03:54 Plt Count 102 K/uL (152-406) L 10/16/22 03:54 PT 10.6 SECONDS (9.5-12.5) 10/15/22 04:02 INR 0.96 10/15/22 04:02 APTT 33.6 SECONDS (24.3-36.9) 10/15/22 13:03 Sodium 139 mmol/L (136-145) 10/16/22 03:54 Potassium 4.4 mmol/L (3.5-5.1) D 10/16/22 03:54 BUN 12 mg/dL (7-18) 10/16/22 03:54 Creatinine 1.05 mg/dL (0.55-1.02) H 10/16/22 03:54 Glucose 122 mg/dL (74-106) H 10/16/22 03:54 Triglycerides 131 mg/dL (<150) 10/16/22 03:54 Cholesterol 141 mg/dL (<200) 10/16/22 03:54 HDL Cholesterol 31 mg/dL (40-60) L 10/16/22 03:54 Cholesterol/HDL Ratio 4.55 10/16/22 03:54 Home Medications: Albuterol Inhaler [Ventolin Inhaler*] 2 puff IH Q6H PRN 10/15/22 Aspirin [Aspirin EC 81 MG] 81 mg PO DAILY #30 tab 10/16/22 Atorvastatin Calcium [Lipitor] 40 mg PO BEDTIME #30 tab 10/16/22 Clopidogrel Bisulfate [Plavix*] 75 mg PO DAILY #30 tab 10/16/22 Metoprolol Tartrate [Lopressor*] 25 mg PO BID 6AM 6PM #60 tab 10/16/22 New Medications: Aspirin [Aspirin EC 81 MG] 81 mg PO DAILY #30 tab Atorvastatin Calcium [Lipitor] 40 mg PO BEDTIME #30 tab Metoprolol Tartrate [Lopressor*] 25 mg PO BID 6AM 6PM #60 tab Clopidogrel Bisulfate [Plavix*] 75 mg PO DAILY #30 tab Physician Discharge Instructions: Smoking cessation advised. Diet: AHA Activity: Ad cara Followup: Unknown,U [Primary Care Provider] - Tom Ma MD [ACTIVE - CAN ADMIT] - 1-2 Weeks
[2022-10-16 16:14] VITALS: BP 129/73; TEMP 96.8
== END 2022-10-16 16:24 | disposition home or self-care (01) ==
LOC: ER 03:42 → ERHOLD 07:48 → 4TH 15:22
PROVIDERS: ADMIT Internal Medicine; ATTEND Internal Medicine
DX: I21.4 Non-ST elevation (NSTEMI) myocardial infarction (principal); I25.110 Atherosclerotic heart disease of native coronary artery with unstable angina pectoris; J44.9 Chronic obstructive pulmonary disease, unspecified; F17.210 Nicotine dependence, cigarettes, uncomplicated; Z71.6 Tobacco abuse counseling; Z79.52 Long term (current) use of systemic steroids; Z79.899 Other long term (current) drug therapy; Z20.822 Contact with and (suspected) exposure to COVID-19; Z82.49 Family history of ischemic heart disease and other diseases of the circulatory system; Z83.3 Family history of diabetes mellitus; Z80.9 Family history of malignant neoplasm, unspecified
CPT/HCPCS: 36415; 71045; 71275; 80048; 80061; 83036; 83880; 84484; 85025; 85347; 85379; 85610; 85730; 87811; 92928; 93005; 93306; 93458; 94760; 96374; 99285; C1725; C1893; G0378; J0461; J1644; J2001; J2250; J3010; J7614; Q9967

== ENCOUNTER 2022-10-18 11:18 | Emergency (ER) | payer OTHER ==
--- NOTE | 2022-10-18 12:00 | EDPHYS ---
Physician Documentation [facility] Name: Haleigh Torres Age: 57 yrs Sex: Female : 1965 Arrival Date: 10/18/2022 Time: 11:28 Bed DX3 Private MD: Helio Cormier HPI: 10/18 11:53 This 57 yrs old Female presents to ER via Ambulatory with complaints of Wrist kallie Pain - blister. 11:53 The patient or guardian reports pain, a rash, 1 BLISTER. The complaints affect the kallie right wrist diffusely. Context: The problem was sustained at home, resulted from BANDAGE. Onset: The symptoms/episode began/occurred 1 day(s) ago. Modifying factors: The symptoms are alleviated by nothing, the symptoms are aggravated by nothing. Associated signs and symptoms: The patient has no apparent associated signs or symptoms. The patient has not experienced similar symptoms in the past. Historical: - Allergies: 11:41 No Known Allergies; iw - PMHx: 11:41 COPD; Myocardial infarction; iw - Immunization history:: Adult Immunizations up to date. - Family history:: not pertinent. - Social history:: Smoking status: Patient denies any tobacco usage or history of. Patient/guardian denies using alcohol. ROS: 11:53 Constitutional: Negative for fever, chills, and weight loss, Eyes: Negative for injury, kallie pain, redness, and discharge, ENT: Negative for injury, pain, and discharge, Neck: Negative for injury, pain, and swelling, Cardiovascular: Negative for chest pain, palpitations, and edema, Respiratory: Negative for shortness of breath, cough, wheezing, and pleuritic chest pain, Abdomen/GI: Negative for abdominal pain, nausea, vomiting, diarrhea, and constipation, Back: Negative for injury and pain, : Negative for injury, bleeding, discharge, and swelling, Skin: Negative for injury, rash, and discoloration, Neuro: Negative for headache, weakness, numbness, tingling, and seizure, Psych: Negative for depression, anxiety, suicide ideation, homicidal ideation, and hallucinations, Allergy/Immunology: Negative for hives, rash, and allergies, Endocrine: Negative for neck swelling, polydipsia, polyuria, polyphagia, and marked weight changes, Hematologic/Lymphatic: Negative for swollen nodes, abnormal bleeding, and unusual bruising. 11:53 MS/extremity: Positive for of the dorsal aspect of right wrist, 1 CM BLISTER. Exam: 11:53 Constitutional: This is a well developed, well nourished patient who is awake, alert, kallie and in no acute distress. Head/Face: Normocephalic, atraumatic. Eyes: Pupils equal round and reactive to light, extra-ocular motions intact. Lids and lashes normal. Conjunctiva and sclera are non-icteric and not injected. Cornea within normal limits. Periorbital areas with no swelling, redness, or edema. ENT: Nares patent. No nasal discharge, no septal abnormalities noted. Tympanic membranes are normal and external auditory canals are clear. Oropharynx with no redness, swelling, or masses, exudates, or evidence of obstruction, uvula midline. Mucous membranes moist. Neck: Trachea midline, no thyromegaly or masses palpated, and no cervical lymphadenopathy. Supple, full range of motion without nuchal rigidity, or vertebral point tenderness. No Meningismus. Chest/axilla: Normal chest wall appearance and motion. Nontender with no deformity. No lesions are appreciated. Cardiovascular: Regular rate and rhythm with a normal S1 and S2. No gallops, murmurs, or rubs. Normal PMI, no JVD. No pulse deficits. Respiratory: Lungs have equal breath sounds bilaterally, clear to auscultation and percussion. No rales, rhonchi or wheezes noted. No increased work of breathing, no retractions or nasal flaring. Abdomen/GI: Soft, non-tender, with normal bowel sounds. No distension or tympany. No guarding or rebound. No evidence of tenderness throughout. Back: No spinal tenderness. No costovertebral tenderness. Full range of motion. MS/ Extremity: Pulses equal, no cyanosis. Neurovascular intact. Full, normal range of motion. Neuro: Awake and alert, GCS 15, oriented to person, place, time, and situation. Cranial nerves II-XII grossly intact. Motor strength 5/5 in all extremities. Sensory grossly intact. Cerebellar exam normal. Normal gait. Psych: Awake, alert, with orientation to person, place and time. Behavior, mood, and affect are within normal limits. 11:53 Skin: Appearance: Color: normal in color, Temperature: normal temperature, Moisture: normal moisture, petechiae, not noted, ecchymosis, not noted, abscess, not appreciated, cellulitis, is not appreciated, induration, is not appreciated, injury, burn(s), contusion(s), laceration(s), that can be described as puncture(s), road rash. Vital Signs: 12:06 BP 136 / 89; Pulse 85; Resp 18; Temp 97.9(TE); Pulse Ox 100% on R/A; Weight 70.31 kg; ld1 Height 5 ft. 3 in. (160.02 cm); Pain 0/10; 12:06 Body Mass Index 27.46 (70.31 kg, 160.02 cm) ld1 MDM: 11:30 Patient medically screened. [facility] 11:56 Differential diagnosis: abrasion. Data reviewed: vital signs, nurses notes. I kallie considered the following discharge prescriptions or medication management in the emergency department Medications were administered in the Emergency Department. See MAR. Test considered but Not performed: Labs: NO LABS, NO USG. Care significantly affected by the following chronic conditions: Chronic Obstructive Pulmonary Disease, CAD/GA. 10/18 11:58 Order name: Misc. Order: BAND AID AND NEOSPORIN; Complete Time: 12:05 kallie Administered Medications: No medications were administered Disposition Summary: 10/18/22 11:59 Discharge Ordered Location: Home [facility] Problem: new kallie Symptoms: have improved kallie Condition: Stable kallie Diagnosis - Blister (nonthermal) of right wrist, initial encounter - SIMPLE / NON INFECTED kallie Followup: kallie - With: Private Physician - When: 2 - 3 days - Reason: Recheck today's complaints, Continuance of care, Re-evaluation by your physician Followup: kallie - With: Tom Ma MD - When: 2 - 3 days - Reason: Recheck today's complaints, Re-evaluation by your physician Discharge Instructions: - Discharge Summary Sheet kallie - Blisters, Adult kallie - Wound Care, Adult kallie Forms: - Medication Reconciliation Form kallie - Thank You Letter kallie - Antibiotic Education kallie - Prescription Opioid Use kallie Signatures: Helio Bales MD MD cha Williams, Irene RN RN iw Alley Aguillon RN RN ld1
--- NOTE | 2022-10-18 12:00 | ER ---
Nurse's Notes [facility] Name: Haleigh Torres Age: 57 yrs Sex: Female : 1965 Arrival Date: 10/18/2022 Time: 11:28 Bed DX3 Private MD: Diagnosis: Blister (nonthermal) of right wrist, initial encounter-SIMPLE / NON INFECTED Presentation: 10/18 11:40 Chief complaint: Patient states: had a heart cath this weekend and she noticed there is iw a blister on her right wrist. Coronavirus screen: At this time, the client does not indicate any symptoms associated with coronavirus-19. Ebola Screen: Patient negative for fever greater than or equal to 101.5 degrees Fahrenheit, and additional compatible Ebola Virus Disease symptoms Patient denies exposure to infectious person. Patient denies travel to an Ebola-affected area in the 21 days before illness onset. No symptoms or risks identified at this time. Onset of symptoms was October 18, 2022. 11:40 Method Of Arrival: Ambulatory iw 11:40 Acuity: ANICETO 4 iw 12:08 Initial Sepsis Screen: Does the patient meet any 2 criteria? No. Patient's initial ld1 sepsis screen is negative. Does the patient have a suspected source of infection? No. Patient's initial sepsis screen is negative. Risk Assessment: Do you want to hurt yourself or someone else? Patient reports no desire to harm self or others. Triage Assessment: 12:07 General: Appears in no apparent distress. comfortable, Behavior is calm, cooperative, ld1 appropriate for age. Pain: Denies pain. Neuro: Level of Consciousness is awake, alert, obeys commands, Oriented to person, place, time, situation. Cardiovascular: Capillary refill < 3 seconds Patient's skin is warm and dry. Respiratory: Airway is patent Respiratory effort is even, unlabored. GI: Abdomen is flat, non-distended. : No signs and/or symptoms were reported regarding the genitourinary system. Derm: No signs and/or symptoms reported regarding the dermatologic system. Historical: - Allergies: 11:41 No Known Allergies; iw - PMHx: 11:41 COPD; Myocardial infarction; iw - Immunization history:: Adult Immunizations up to date. - Family history:: not pertinent. - Social history:: Smoking status: Patient denies any tobacco usage or history of. Patient/guardian denies using alcohol. Screenin:06 [facility] ED Fall Risk Assessment (Adult) History of falling in the last 3 months, ld1 including since admission No falls in past 3 months (0 pts). Abuse screen: Denies threats or abuse. Denies injuries from another. Nutritional screening: No deficits noted. Tuberculosis screening: No symptoms or risk factors identified. Assessment: 12:06 Reassessment: See triage assessment. ld1 Vital Signs: 12:06 BP 136 / 89; Pulse 85; Resp 18; Temp 97.9(TE); Pulse Ox 100% on R/A; Weight 70.31 kg; ld1 Height 5 ft. 3 in. (160.02 cm); Pain 0/10; 12:06 Body Mass Index 27.46 (70.31 kg, 160.02 cm) ld1 ED Course: 11:28 Patient arrived in ED. am2 11:30 Helio Bales MD is Attending Physician. kallie 11:40 Anitha Enriquez, RN is Primary Nurse. iw 11:41 Triage completed. iw 11:41 Arm band placed on. iw 11:59 Tom Ma MD is Referral Physician. kallie 12:06 Patient has correct armband on for positive identification. Bed in low position. Call ld1 light in reach. Pulse ox on. NIBP on. Door closed. 12:06 No provider procedures requiring assistance completed. Patient did not have IV access ld1 during this emergency room visit. Administered Medications: No medications were administered Medication: 12:06 VIS not applicable for this client. ld1 Outcome: 11:59 Discharge ordered by . [facility] 12:06 Discharged to home ambulatory. ld1 12:06 Condition: stable 12:06 Discharge instructions given to patient, Instructed on discharge instructions, follow up and referral plans. Demonstrated understanding of instructions, follow-up care. 12:08 Patient left the ED. ld1 Signatures: Helio Bales MD MD cha Williams, Irene, RN FELIX Ruthie Royal [facility] Alley Aguillon RN RN ld1
== END 2022-10-18 12:08 | disposition home or self-care (01) ==
LOC: ER 11:18
DX: S60.821A Blister (nonthermal) of right wrist, initial encounter (principal)
CPT/HCPCS: 99283

== ENCOUNTER 2023-03-22 11:22 | Emergency (ER) | payer OTHER ==
--- OUTSIDE RECORDS SUMMARY | 2023-03-22 11:25 | XMS REPORT | Continuity of Care Document ---
:1965 Author Organization [facility] t Address [address] [place] [id number] Care Team Providers Name Role Phone Unavailable Unavailable Unavailable Problems This patient has no known problems. Allergies, Adverse Reactions, Alerts This patient has no known allergies or adverse reactions. Medications This patient has no known medications. Procedures This patient has no known procedures. Encounters Start End Encounter Admission Attending Care Care Encounter Source Date/Time Date/Time Type Type Clinicians Facility Department ID 2022-11-16 2022-11-16 Outpatient [facility] [id number] Danny 08:05:23 08:05:23 [id number] F William 2022-10-21 2022-10-21 Outpatient [facility] [id number] 15:36:28 15:36:28 [id number] F William Results This patient has no known results.
[2023-03-22] MEDS ORDERED: ALBUTEROL 2.5 MG/3 ML NEB SOL ONE (11:54)
[2023-03-22] MEDS ORDERED: ASPIRIN 81 MG CHEWABLE TABLET ONE (11:54)
[2023-03-22] MEDS ORDERED: IPRATROPIUM BROM 0.5MG/2.5ML ONE (11:54)
[2023-03-22 12:02] LABS: Absolute Lymphocytes (CBC) 1.1 K/uL (0.7-4.9); Hematocrit 46.1 % (36.0-45.0); Lymphocytes % 21.8 % (15.3-44.8); MPV 8.9 fL (7.6-11.3); RBC Red Blood Cell Count 5.01 M/uL (3.86-4.86)
[2023-03-22 12:04] LABS: Protime INR 1.08
[2023-03-22 12:20] LABS: Albumin 3.3 g/dL (3.4-5.0); Bilirubin Direct 0.3 mg/dL (0-0.2); Bilirubin Indirect, Calculated 0.4 mg/dL (0.2-0.8); Bilirubin Total 0.7 mg/dL (0.2-1.0); Magnesium 2.4 mg/dL (1.6-2.4); Potassium 4.2 mEq/L (3.5-5.1); Protein, Total 7.7 g/dL (6.4-8.2); Troponin High Sensitivity 4.7 pg/mL (<58.9)
--- NOTE | 2023-03-22 12:45 | RAD REPORT ---
EXAM DESCRIPTION: RAD - Chest Single View - 03/22/2023 12:39 pm CLINICAL HISTORY: CHEST PAIN Chest pain. COMPARISON: Chest Single View dated 12/13/2022; Chest Single View dated 10/15/2022; Chest Single View dated 09/28/2022; Chest Single View dated 05/30/2022 FINDINGS: Portable technique limits examination quality. The lungs are emphysematous but grossly clear. The heart is normal in size. No displaced fractures. IMPRESSION: No acute intrathoracic process suspected.
--- NOTE | 2023-03-22 13:28 | RAD REPORT ---
EXAM DESCRIPTION: CT - Chest For Pe Angio - 03/22/2023 1:08 pm CLINICAL HISTORY: Chest pain COMPARISON: None. TECHNIQUE: Dynamically enhanced axial 3 mm thick images of the chest were obtained during administra tion of 75 mL Isovue 370 IV contrast. Coronal and oblique reconstruction images were generated and re viewed. Exam utilizes a protocol for optimal evaluation of pulmonary arterial tree. Maximum intensity projections 3D imaging was utilized All CT scans are performed using dose optimization technique as appropriate and may include automated exposure control or mA/KV adjustment according to patient size. FINDINGS: A pulmonary embolus is not seen. A thoracic aortic aneurysm is not noted. A pleural effusion is not seen. A pericardial effusion is not seen. Chronic mild peribronchial thickening. Cirrhotic liver IMPRESSION: Negative for a pulmonary embolism.
--- NOTE | 2023-03-22 14:11 | EDPHYS ---
Physician Documentation [facility] Name: Haleigh Torres Age: 57 yrs Sex: Female : 1965 Arrival Date: 03/22/2023 Time: 11:22 Bed 14 Private MD: ED Physician Helio Bales HPI: 03/22 11:42 This 57 yrs old Female presents to ER via EMS with complaints of Chest pain. sb4 12:30 57-year-old female past medical history of COPD and coronary artery disease presents to [facility] the ED via EMS with complaints of chest pain. She states that she started experiencing chest pain last night, that feels similar to her prior [place] 2 months ago. She states the pain is in the substernal region and is associated with shortness of breath. She reports compliance with her daily aspirin. Historical: - Allergies: 11:27 No Known Allergies; ap3 - PMHx: 11:27 COPD; Myocardial infarction; ap3 - Immunization history:: Client reports having NOT received the Covid vaccine. - Social history:: Smoking status: Patient reports the use of cigarette tobacco products, smokes one pack cigarettes per day. ROS: 12:30 Constitutional: Negative for fever, chills, and weight loss, Eyes: Negative for injury, sb4 pain, redness, and discharge, ENT: Negative for injury, pain, and discharge, Abdomen/GI: Negative for abdominal pain, nausea, vomiting, diarrhea, and constipation, Back: Negative for injury and pain, MS/Extremity: Negative for injury and deformity, Skin: Negative for injury, rash, and discoloration, Neuro: Negative for headache, weakness, numbness, tingling, and seizure. 12:30 Cardiovascular: Positive for chest pain, Negative for edema, orthopnea, palpitations. 12:30 Respiratory: Positive for shortness of breath, wheezing, Negative for cough, hemoptysis. 12:30 All other systems are negative. Exam: 11:43 ECG was reviewed by the Attending Physician. sb4 12:30 Constitutional: This is a well developed, well nourished patient who is awake, alert, sb4 and in no acute distress. Head/Face: Normocephalic, atraumatic. Eyes: Extra-ocular motions intact. Periorbital areas with no swelling, redness, or edema. ENT: Mucous membranes moist. Cardiovascular: Regular rate and rhythm with a normal S1 and S2. Abdomen/GI: Soft, non-tender, no distension. Back: No spinal tenderness. No costovertebral tenderness. Full range of motion. Skin: Warm, dry with normal turgor. Normal color with no rashes, no lesions, and no evidence of cellulitis. MS/ Extremity: Pulses equal, no cyanosis. Neurovascular intact. Full, normal range of motion. Neuro: Awake and alert, GCS 15, oriented to person, place, time, and situation. Cranial nerves II-XII grossly intact. Motor strength 5/5 in all extremities. Sensory grossly intact. Cerebellar exam normal. Normal gait. 12:30 Respiratory: the patient does not display signs of respiratory distress, Respirations: normal, Breath sounds: wheezing: is scattered. Vital Signs: 11:26 BP 90 / 53; Pulse 92; Resp 21; Temp 97.7; Pulse Ox 97% ; Weight 65.77 kg; ap3 12:14 BP 118 / 72; Pulse 93; Pulse Ox 95% on R/A; ap3 12:47 BP 127 / 67; Pulse 83; Pulse Ox 94% on R/A; ap3 MDM: 11:27 Patient medically screened. kallie 12:30 Differential Diagnosis subsequent [place], unstable angina, stable angina, COPD sb4 exacerbation, pulmonary embolism, bronchitis, URI, pneumonia, nonspecific chest pain. 14:01 Data reviewed: vital signs, nurses notes, EMS record, old medical records, [facility] sb4 notes and labs from prior admission lab test result(s), cardiac enzymes, EKG, radiologic studies, CT scan, plain films, and as a result, I will discharge patient. Consideration of Admission/Observation Escalation of care including admission/observation considered. External Records Reviewed: Inpatient record: [facility] admission, reviewed cardiology note and operative report from cardiac catheterization which detailed stenting of RCA 2 months ago and no other significantly stenosed coronary arteries. Care significantly affected by the following chronic conditions: Hypertension, Chronic Obstructive Pulmonary Disease. Scoring Tools HEART Score: History: ECG: Age: Risk Factors: > or = 3 Risk factors for atherosclerotic disease (2), Troponin: Total Score = 3. 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 Special discussion: Based on the patient's history, exam, and Dx evaluation, there is no indication for emergent intervention or inpatient Tx. It is understood by the patient/guardian that if the Sx's persist or worsen they need to return immediately for re-evaluation. 03/22 11:28 Order name: Basic Metabolic Panel; Complete Time: 12:21 sb4 03/22 11:28 Order name: CBC with Diff; Complete Time: 12:03 sb4 03/22 11:28 Order name: LFT's; Complete Time: 12:21 sb4 03/22 11:28 Order name: Magnesium; Complete Time: 12:21 sb4 03/22 11:28 Order name: NT PRO-BNP; Complete Time: 12:21 sb4 03/22 11:28 Order name: PT-INR; Complete Time: 12:07 sb4 03/22 11:28 Order name: Troponin HS; Complete Time: 12:21 sb4 03/22 13:44 Order name: Troponin High Sensitivity; Complete Time: 14:15 sb4 03/22 11:28 Order name: XRAY Chest (1 view); Complete Time: 12:47 sb4 03/22 11:40 Order name: Chest For PE Angio CT; Complete Time: 13:38 sb4 03/22 11:28 Order name: EKG; Complete Time: 11:29 sb4 03/22 11:28 Order name: Cardiac monitoring; Complete Time: 11:30 sb4 03/22 11:28 Order name: EKG - Nurse/Tech; Complete Time: 11:39 sb4 03/22 11:28 Order name: IV Saline Lock; Complete Time: 11:30 sb4 03/22 11:28 Order name: Labs collected and sent; Complete Time: 11:30 sb4 03/22 11:28 Order name: O2 Per Protocol; Complete Time: 11:30 sb4 03/22 11:28 Order name: O2 Sat Monitoring; Complete Time: 11:30 sb4 EC:43 Rate is 93 beats/min. Rhythm is regular, Normal Sinus Rhythm. NJ interval is normal at sb4 130 msec. QRS interval is normal at 72 msec. QT interval is normal at 358 msec. No Q waves. No ST changes noted. Clinical impression: No evidence of ischemia. Interpreted by me. Reviewed by me. Administered Medications: 11:49 Drug: Aspirin PO Chewable Tablet 324 mg Route: PO; ap3 14:26 Follow up: Response: No adverse reaction ap3 11:49 Drug: DuoNeb Nebulize (3:1) (2.5 mg - 0.5 mg) 3 ml Route: Nebulizer; ap3 14:25 Follow up: Response: No adverse reaction ap3 Disposition Summary: 03/22/23 14:10 Discharge Ordered Location: Home sb4 Problem: new sb4 Symptoms: are resolved sb4 Condition: Stable sb4 Diagnosis - Chest pain, unspecified sb4 Followup: sb4 - With: - When: As needed - Reason: Recheck today's complaints, Continuance of care, Re-evaluation by your physician Discharge Instructions: - Discharge Summary Sheet sb4 - Nonspecific Chest Pain, Adult, [id number] sb4 Forms: - Work release form eh3 - Medication Reconciliation Form sb4 - Thank You Letter sb4 - Antibiotic Education sb4 - Prescription Opioid Use sb4 - Patient Portal Instructions sb4 Signatures: Dispatcher [employer] EDHelio Farr MD MD cha Prokisch, Amanda, RN RN Ewa Patricia, FRANCISCO SINGH sb4
--- NOTE | 2023-03-22 14:11 | ER ---
Nurse's Notes [facility] Name: Haleigh Torres Age: 57 yrs Sex: Female : 1965 Arrival Date: 03/22/2023 Time: 11:22 Bed 14 Private MD: Diagnosis: Chest pain, unspecified Presentation: 03/22 11:26 Chief complaint: Patient states: she started having chest pain last night, and then had ap3 bloody diarrhea [employer]. Coronavirus screen: At this time, the client does not indicate any symptoms associated with coronavirus-19. Ebola Screen: No symptoms or risks identified at this time. Initial Sepsis Screen: Does the patient meet any 2 criteria? No. Patient's initial sepsis screen is negative. Does the patient have a suspected source of infection? No. Patient's initial sepsis screen is negative. Risk Assessment: Do you want to hurt yourself or someone else? Patient reports no desire to harm self or others. Onset of symptoms was March 21, 2023. 11:26 Method Of Arrival: EMS: [facility] ap3 11:26 Acuity: ANICETO 3 ap3 11:31 Care prior to arrival: IV initiated. 20 GA, in the right wrist. ap3 Triage Assessment: 11:28 General: Appears comfortable, Behavior is calm, cooperative. Pain: Complains of pain in ap3 chest. Neuro: Level of Consciousness is awake, alert, obeys commands, Oriented to person, place, time. Cardiovascular: Patient's skin is warm and dry. Cardiovascular: Reports chest pain. Respiratory: Airway is patent Respiratory effort is even, unlabored, Respiratory pattern is regular, symmetrical. GI: Reports bloody stool. Historical: - Allergies: 11:27 No Known Allergies; ap3 - PMHx: 11:27 COPD; Myocardial infarction; ap3 - Immunization history:: Client reports having NOT received the Covid vaccine. - Social history:: Smoking status: Patient reports the use of cigarette tobacco products, smokes one pack cigarettes per day. Screenin:30 [facility] ED Fall Risk Assessment (Adult) History of falling in the last 3 months, ap3 including since admission No falls in past 3 months (0 pts). Abuse screen: Denies threats or abuse. Nutritional screening: No deficits noted. Tuberculosis screening: No symptoms or risk factors identified. Vital Signs: 11:26 BP 90 / 53; Pulse 92; Resp 21; Temp 97.7; Pulse Ox 97% ; Weight 65.77 kg; ap3 12:14 BP 118 / 72; Pulse 93; Pulse Ox 95% on R/A; ap3 12:47 BP 127 / 67; Pulse 83; Pulse Ox 94% on R/A; ap3 ED Course: 11:26 Patient arrived in ED. bd 11:26 Ruthie Miles, RN is Primary Nurse. ap3 11:27 Helio Bales MD is Attending Physician. kallie 11:27 Triage completed. ap3 11:28 Ewa Castro PA-C is PHCP. sb4 11:30 Arm band placed on right wrist. ap3 11:30 Patient has correct armband on for positive identification. Placed in gown. Bed in low ap3 position. Call light in reach. Side rails up X2. monitor technician on. Pulse ox on. NIBP on. 11:35 EKG done, by ED staff, reviewed by Ewa Castro PA-C. ap3 12:40 XRAY Chest (1 view) In Process Unspecified. EDMS 13:09 Chest For PE Angio CT In Process Unspecified. EDMS 13:49 Troponin High Sensitivity Sent. ap3 13:49 Repeat lab(s) drawn. by nj, sent to lab. ap3 14:10 Tom Ma MD is Referral Physician. sb4 14:24 No provider procedures requiring assistance completed. IV discontinued, intact, ap3 bleeding controlled, No redness/swelling at site. Pressure dressing applied. 14:25 Provided Education on: DISCHARGE INSTRUCTION. ap3 Administered Medications: 11:49 Drug: Aspirin PO Chewable Tablet 324 mg Route: PO; ap3 14:26 Follow up: Response: No adverse reaction ap3 11:49 Drug: DuoNeb Nebulize (3:1) (2.5 mg - 0.5 mg) 3 ml Route: Nebulizer; ap3 14:25 Follow up: Response: No adverse reaction ap3 Medication: 14:25 VIS not applicable for this client. ap3 Outcome: 14:10 Discharge ordered by . sb4 14:25 Discharged to home ambulatory. ap3 14:25 Condition: good 14:25 Discharge instructions given to patient, Instructed on discharge instructions, follow up and referral plans. Demonstrated understanding of instructions, follow-up care. 14:25 Patient left the ED. ap3 Signatures: Dispatcher [employer] EDMS Stacy Hillman Corey, MD MD cha Prokisch, Amanda, RN RN ap3 Ewa Castro PA-C PA-C sb4
[2023-03-22 14:42] VITALS: TEMP 97.7
[2023-03-22 14:45] VITALS: BP 127/67; O2SAT 94
--- NOTE | 2023-03-23 17:37 | EKG ---
Test Date: 2023-03-22 Test Time: 11:35:21 It Program Auditor: ALP MEASUREMENT RESULTS: Intervals: Rate: 93 OK: 130 QRSD: 72 QT: 358 QTc: 445 [place]: P: 85 OK: 130 QRS: 89 T: 80 INTERPRETIVE STATEMENTS: Normal sinus rhythm Right atrial enlargement Borderline ECG Compared to ECG 12/13/2022 13:28:54 Atrial abnormality now present Electronically Signed On 03-23-23 17:34:11 CDT by Tom Ma
== END 2023-03-22 14:25 | disposition home or self-care (01) ==
LOC: ER 11:22
DX: R07.9 Chest pain, unspecified (principal); J44.9 Chronic obstructive pulmonary disease, unspecified; I25.2 Old myocardial infarction; F17.210 Nicotine dependence, cigarettes, uncomplicated
CPT/HCPCS: 85025; 80048; 36415; 83735; 85610; 80076; 84484 ×2; 83880; 71275; 71045; Q9967; J7613; J7644; 93005

== ENCOUNTER 2023-05-31 12:38 | Emergency (ER) | payer OTHER ==
--- OUTSIDE RECORDS SUMMARY | 2023-05-31 12:47 | XMS REPORT | Continuity of Care Document ---
:1965 Author Organization [facility] t Address [address] [place] [address] [place] [id number] Care Team Providers Name Role Phone Unavailable Unavailable Unavailable Problems This patient has no known problems. Allergies, Adverse Reactions, Alerts This patient has no known allergies or adverse reactions. Medications This patient has no known medications. Procedures This patient has no known procedures. Encounters Start End Encounter Admission Attending Care Care Encounter Source Date/Time Date/Time Type Type Clinicians Facility Department ID 2023-04-25 2023-04-25 Outpatient [facility] [id number] Danny 11:01:46 11:01:46 [id number] F William 2022-11-16 2022-11-16 Outpatient [facility] [id number] Danny 08:05:23 08:05:23 [id number] F William 2022-10-21 2022-10-21 Outpatient [facility] [id number] Danny 15:36:28 15:36:28 [id number] F William Results This patient has no known results.
[2023-05-31] MEDS ORDERED: MORPHINE 4 MG/ML SYR ONE (13:32)
--- NOTE | 2023-05-31 14:25 | RAD REPORT ---
EXAM DESCRIPTION: CT - Chest Abd Pelvis Wo Con - 05/31/2023 1:23 pm CLINICAL HISTORY: TRAUMA COMPARISON: Chest For Pe Angio dated 03/22/2023; Chest For Pe Angio dated 10/15/2022; Chest For Pe Elana o dated 01/28/2021; Thorax Wo Con dated 08/24/2020 TECHNIQUE: Thin axial noncontrast CT images of the chest, abdomen, and pelvis. Multiplanar reformats were generated and reviewed. All CT scans are performed using dose optimization technique as appropriate and may include automated exposure control or mA/KV adjustment according to patient size. FINDINGS: The lungs are clear.No pleural or pericardial effusion.No intrathoracic adenopathy. The liver shows a calcified 1.2 cm lesion in the inferior right liver lobe, may represent an involute d hemangioma or granuloma. It was partially included on the 10/15/2022 exam. Nodular contour of the l iver suggesting underlying cirrhosis. Borderline splenomegaly, spleen measuring 13 cm in long axis. S mall calcified splenic granulomas. Pancreas, adrenal glands, and kidneys are within normal limits. No bowel obstruction, free air, free fluid or abscess. Normal appendix. Colonic diverticulosis. No pa thologic lymphadenopathy in the abdomen or pelvis. Urinary bladder is suboptimally distended limiting evaluation, without suspicious findings. No worrisome osseous finding. IMPRESSION: No acute findings in the abdomen and pelvis. Findings suggestive of cirrhosis with borderline splenomegaly. Calcific focus in the inferior right l iver lobe, benign in appearance, as well as small calcified splenic granulomas. These do not deserve sequential imaging follow-up. Colonic diverticulosis.
--- NOTE | 2023-05-31 14:54 | ER ---
Nurse's Notes [facility] Name: Haleigh Torres Age: 57 yrs Sex: Female : 1965 Arrival Date: 05/31/2023 Time: 12:38 Bed 9 Private MD: Diagnosis: Chest wall contusion Presentation: 05/31 13:01 Chief complaint: Patient states: Fall yesterday, complaining of left sided chest pain, nj1 worse with deep breathing and cough. Painful to touch and movement. Coronavirus screen: Vaccine status: Patient reports being unvaccinated. Ebola Screen: Patient denies travel to an Ebola-affected area in the 21 days before illness onset. Initial Sepsis Screen: Does the patient meet any 2 criteria? No. Patient's initial sepsis screen is negative. Does the patient have a suspected source of infection? No. Patient's initial sepsis screen is negative. Risk Assessment: Do you want to hurt yourself or someone else? Patient reports no desire to harm self or others. Onset of symptoms was May 30, 2023. 13:01 Method Of Arrival: Ambulatory [facility] 13:01 Acuity: ANICETO 3 nj1 Historical: - Allergies: 13:04 No Known Allergies; nj1 - PMHx: 13:04 Myocardial infarction; COPD; nj1 - PSHx: 13:05 Stented artery; nj1 - Immunization history:: Client reports having NOT received the Covid vaccine. - Social history:: Smoking status: Patient reports the use of cigarette tobacco products, smokes one pack cigarettes per day. - Family history:: not pertinent. Screenin:31 [facility] ED Fall Risk Assessment (Adult) History of falling in the last 3 months, mb9 including since admission No falls in past 3 months (0 pts) Confusion or Disorientation No (0 pts) Intoxicated or Sedated No (0 pts) Impaired Gait No (0 pts) Mobility Assist Device Used No (0 pt) Altered Elimination No (0 pt) Score/Fall Risk Level 0 - 2 = Low Risk Oriented to surroundings, Maintained a safe environment, Educated pt \T\ family on fall prevention, incl call for assistance when getting out of bed. Abuse screen: Denies threats or abuse. Nutritional screening: No deficits noted. Tuberculosis screening: No symptoms or risk factors identified. Assessment: 13:30 General: Appears in no apparent distress. Behavior is calm, cooperative. Pain: mb9 Complains of pain in chest, left arm and left leg Pain currently is 10 out of 10 on a pain scale. Quality of pain is described as throbbing, Pain began suddenly. Neuro: Esquivel Agitation-Sedation Scale (RASS): 0 - Alert and Calm Level of Consciousness is awake, alert, obeys commands, Oriented to person, place, time, situation, Appropriate for age. Cardiovascular: Patient's skin is warm and dry. Respiratory: Airway is patent Respiratory effort is even, unlabored, Respiratory pattern is regular, symmetrical. GI: No signs and/or symptoms were reported involving the gastrointestinal system. : No signs and/or symptoms were reported regarding the genitourinary system. EENT: No signs and/or symptoms were reported regarding the EENT system. Derm: Skin is pink, warm \T\ dry. Musculoskeletal: Range of motion: intact in all extremities. 14:16 Reassessment: Patient is alert, oriented x 3, equal unlabored respirations, skin mb9 warm/dry/pink. Patient states feeling better. Patient states symptoms have improved. Vital Signs: 13:01 BP 153 / 80; Pulse 82; Resp 18; Temp 98.1(TE); Pulse Ox 97% ; Weight 61.23 kg; Height 5 nj1 ft. 2 in. ; Pain 10/10; 14:15 BP 138 / 74; Pulse 78; Resp 18; Pulse Ox 98% on R/A; mb9 15:21 BP 135 / 74; Pulse 74; Resp 16; Pulse Ox 100% on R/A; mb9 13:01 Body Mass Index 24.69 (61.23 kg, 157.48 cm) nj1 13:01 Pain Scale: Adult de1 ED Course: 12:45 Patient arrived in ED. im 12:50 Urbano Mendoza MD is Attending Physician. rt 13:04 Triage completed. nj1 13:06 Arm band placed on right wrist. nj1 13:17 Renate Rebollar RN is Primary Nurse. mb9 13:25 CT Chest Abdomen Pelvis W/O Contrast In Process Unspecified. EDMS 13:31 Placed in gown. Bed in low position. Call light in reach. Side rails up X 1. Client mb9 placed on continuous cardiac and pulse oximetry monitoring. NIBP monitoring applied. 13:32 No provider procedures requiring assistance completed. mb9 15:22 Patient did not have IV access during this emergency room visit. mb9 Administered Medications: 13:30 Drug: morphine IM 4 mg IM once Route: IM; Site: left gluteus; mb9 15:17 Follow up: Response: No adverse reaction mb9 Medication: 13:32 VIS not applicable for this client. mb9 Outcome: 14:53 Discharge ordered by MD. rt 15:21 Discharged to home ambulatory, mb9 15:21 Condition: stable 15:21 Discharge instructions given to patient, Instructed on discharge instructions, follow up and referral plans. Demonstrated understanding of instructions, follow-up care, medications, Prescriptions given X 1, 15:22 Patient left the ED. mb9 Signatures: Dispatcher [employer] Renate Castellano RN RN mb9 Urbano Mendoza MD MD rt Olesya Jaime RN RN nj1 Doreen Tapia im Corrections: (The following items were deleted from the chart) 13:05 13:05 PSHx: Coronary artery bypass graft; nj1 nj1
--- NOTE | 2023-05-31 14:54 | EDPHYS ---
Physician Documentation [facility] Name: Haleigh Torres Age: 57 yrs Sex: Female : 1965 Arrival Date: 05/31/2023 Time: 12:38 Bed 9 Private MD: ED Physician Urbano Mendoza HPI: 05/31 14:59 This 57 yrs old Female presents to ER via Ambulatory with complaints of Fall Injury. rt 14:59 Patient presents to the ED with mechanical slip and fall about 2 days ago. She states rt that she landed on her left hand which then dug into her lower ribs. She has any pain to her hand, wrist, arm. He does report a pain to the left lower rib margin. This is worse with a deep breath. Denies other injury, other acute complaints. Denies hitting her head. Symptoms are moderate severity, aching nature, no other aggravating alleviating factors.. Historical: - Allergies: 13:04 No Known Allergies; nj1 - PMHx: 13:04 Myocardial infarction; COPD; nj1 - PSHx: 13:05 Stented artery; nj1 - Immunization history:: Client reports having NOT received the Covid vaccine. - Social history:: Smoking status: Patient reports the use of cigarette tobacco products, smokes one pack cigarettes per day. - Family history:: not pertinent. ROS: 14:59 Constitutional: Negative for fever, chills, and weight loss, Respiratory: Negative for rt shortness of breath, cough, wheezing, and pleuritic chest pain, Abdomen/GI: Negative for abdominal pain, nausea, vomiting, diarrhea, and constipation, Skin: Negative for injury, rash, and discoloration, Neuro: Negative for headache, weakness, numbness, tingling, and seizure, Psych: Negative for depression, anxiety, suicide ideation, homicidal ideation, and hallucinations, 14:59 Cardiovascular: Positive for Chest wall pain, negative for edema, Exam: 14:59 Constitutional: This is a well developed, well nourished patient who is awake, alert, rt and in no acute distress. Head/Face: Normocephalic, atraumatic. Neck: Trachea midline, no thyromegaly or masses palpated, and no cervical lymphadenopathy. Supple, full range of motion without nuchal rigidity, or vertebral point tenderness. No Meningismus. Respiratory: Lungs have equal breath sounds bilaterally, clear to auscultation and percussion. No rales, rhonchi or wheezes noted. No increased work of breathing, no retractions or nasal flaring. Skin: Warm, dry with normal turgor. Normal color with no rashes, no lesions, and no evidence of cellulitis. MS/ Extremity: Pulses equal, no cyanosis. Neurovascular intact. Full, normal range of motion. Neuro: Awake and alert, GCS 15, oriented to person, place, time, and situation. Cranial nerves II-XII grossly intact. Motor strength 5/5 in all extremities. Sensory grossly intact. Cerebellar exam normal. Normal gait. Psych: Awake, alert, with orientation to person, place and time. Behavior, mood, and affect are within normal limits. 14:59 Chest/axilla: Tenderness to left lower rib margin, no crepitus, no deformity. 14:59 Abdomen/GI: Tenderness to left upper quadrant without rebound, guarding, distention, Vital Signs: 13:01 BP 153 / 80; Pulse 82; Resp 18; Temp 98.1(TE); Pulse Ox 97% ; Weight 61.23 kg; Height 5 nj1 ft. 2 in. ; Pain 10/10; 14:15 BP 138 / 74; Pulse 78; Resp 18; Pulse Ox 98% on R/A; mb9 15:21 BP 135 / 74; Pulse 74; Resp 16; Pulse Ox 100% on R/A; mb9 13:01 Body Mass Index 24.69 (61.23 kg, 157.48 cm) nj1 13:01 Pain Scale: Adult nj1 MDM: 13:09 Patient medically screened. rt 14:59 Differential diagnosis: Rib fracture, splenic laceration, chest wall contusion. Data rt reviewed: vital signs, nurses notes. Independent interpretation of the following test(s) in the Emergency Department CT Scan: My interpretation is No pneumothorax, interpretation of CT scan images. Test considered but Not performed: CT: Denies head trauma, CT scan of the head not indicated. Care significantly affected by the following chronic conditions: Chronic Obstructive Pulmonary Disease. Counseling: I had a detailed discussion with the patient and/or guardian regarding the historical points, exam findings, and any diagnostic results supporting the discharge/admit diagnosis, radiology results, the need for outpatient follow up. Response to treatment: the patient's symptoms have markedly improved after treatment. 05/31 13:09 Order name: CT Chest Abdomen Pelvis W/O Contrast; Complete Time: 14:43 rt Administered Medications: 13:30 Drug: morphine IM 4 mg IM once Route: IM; Site: left gluteus; mb9 15:17 Follow up: Response: No adverse reaction mb9 Disposition Summary: 05/31/23 14:53 Discharge Ordered Notes: Location: Home rt Problem: new rt Symptoms: have improved rt Condition: Stable rt Diagnosis - Chest wall contusion rt Followup: rt - With: Private Physician - When: 2 - 3 days - Reason: Discharge Instructions: - Discharge Summary Sheet rt - Chest Wall Pain rt Forms: - Medication Reconciliation Form rt - Thank You Letter rt - Antibiotic Education rt - Prescription Opioid Use rt - Patient Portal Instructions rt - Leadership Thank You Letter rt Prescriptions: - Ultram 50 mg Oral Tablet - take 1 tablet ORAL route every 6 hours As needed; 12 tablet; Refills: 0, rt Product Selection Permitted Signatures: Dispatcher [employer] Renate Castellano RN RN mb9 Urbano Mendoza MD MD rt Olesya Jaime RN RN nj1 Corrections: (The following items were deleted from the chart) 13:05 13:05 PSHx: Coronary artery bypass graft; nj1 nj1
[2023-05-31 15:27] VITALS: TEMP 98.1
[2023-05-31 15:29] VITALS: BP 135/74; O2SAT 100
== END 2023-05-31 15:22 | disposition home or self-care (01) ==
LOC: ER 12:38
DX: S20.212A Contusion of left front wall of thorax, initial encounter (principal); J44.9 Chronic obstructive pulmonary disease, unspecified; I25.2 Old myocardial infarction; F17.210 Nicotine dependence, cigarettes, uncomplicated
CPT/HCPCS: 71250; 74176; 96372; 99284

== ENCOUNTER 2024-09-05 00:07 | Inpatient (IN) | payer OTHER ==
--- OUTSIDE RECORDS SUMMARY | 2024-09-05 00:12 | XMS REPORT | Continuity of Care Document ---
Author Name Unknown Address [address] [facility] [address] [id number] [facility] Address [address] [facility] [address] [place] [address] Care Team Providers Care Field Clerk Name Role Phone Haja Larsen Primary Care Physician [phone] Medications Ordered Medication Name Filled Medication Name Start Date Stop Date Current Medication? Ordering Clinician Indication Dosage Frequency Signature (SIG) Comments Components Source Symbicort 160 mcg-4.5 mcg/actuati on HFA aerosol inhaler 2023-08 00:00: 00 Yes 2mcg/ac tuation Danny Thomas albuterol sulfate HFA 90 mcg/actuati on aerosol inhaler 2023-08 00:00: 00 Yes 2mcg/ac tuation Danny Thomas atorvastati n 40 mg tablet 2023-08 00:00: 00 Yes 1mg Danny Thomas clopidogrel 75 mg tablet 2023-08 00:00: 00 Yes 1mg Danny Thomas prednisone 20 mg tablet 2023-08 00:00: 00 Yes 1mg Danny Thomas atorvastati n 40 mg tablet 05-14 00:00: 00 Yes 1mg Dannyjuan Thomas clopidogrel 75 mg tablet 05-14 00:00: 00 Yes 1mg Danny Kishan William clopidogrel 75 mg tablet 05-11 00:00: 00 Yes 1mg Danny F William clopidogrel 75 mg tablet 02-14 00:00: 00 Yes mg Danny F William atorvastati n 40 mg tablet 02-14 00:00: 00 Yes mg Danny Thomas albuterol sulfate HFA 90 mcg/actuati on aerosol inhaler 02-14 00:00: 00 Yes 2mcg/ac tuation Danny Thomas albuterol sulfate HFA 90 mcg/actuati on aerosol inhaler 01-25 00:00: 00 Yes 2mcg/ac tuation Danny Thomas Trelegy Ellipta 100 mcg-62.5 mcg-25 mcg powder for inhalation 01-25 00:00: 00 Yes 1mcg Danny Thomas nicotine 14 mg/24 hr daily transdermal patch 01-25 00:00: 00 Yes mg/24 hr Danny Thomas nicotine 21 mg/24 hr daily transdermal patch 01-25 00:00: 00 Yes 1mg/24 hr Danny Thomas nicotine 7 mg/24 hr daily transdermal patch 01-25 00:00: 00 Yes mg/24 hr Danny Thomas atorvastati n 40 mg tablet 12-18 00:00: 00 Yes mg Danny Thomas CLOPIDOGREL 75MG 2022-08 2- 00:00: 00 Yes Danny Thomas ALBUTEROL PA HFA 200 INH 2022-08 2- 00:00: 00 Yes Danny Thomas ATORVASTATI N 40MG 2022-08 2- 00:00: 00 Yes Danny Thomas TRELEGY 100 ELLIPTA INH 2022-08 2- 00:00: 00 Yes Danny Thomas TRELEGY 100 ELLIPTA INH 2022-08 0-19 00:00: 00 Yes Danny Thomas ATORVASTATI N 40MG 2022-08 0-19 00:00: 00 Yes [id number] Danny Thomas TRAMADOL HCL 50MG 2022-08 0-10 00:00: 00 Yes 50 Danny Thomas INHALE 1 PUFF ONCE DAILY 04-25 00:00: 00 Yes [id number] 5 Danny Thomas TAKE 1 TABLET DAILY. 04-25 00:00: 00 12-25 00:00 :00 No 81 Danny Thomas TAKE 1 TABLET TWICE DAILY. 04-25 00:00: 00 12-25 00:00 :00 No 25 Danny Thomas USE 1 VIAL IN NEBULIZER 3 TIMES DAILY NEEDED. 04-25 00:00: 00 12-25 00:00 :00 No [id number] Danny Thomas TAKE 1 TABLET BY MOUTH DAILY 04-25 00:00: 00 12-25 00:00 :00 No 75 Danny Thomas TAKE 1 TABLET DAILY. 04-25 00:00: 00 12-25 00:00 :00 No 40 Danny Thomas INHALE 2 PUFFS EVERY 4-6 HOURS, SPACED 60 SECONDS APART. 04-25 00:00: 00 12-25 00:00 :00 No [id number] Danny Thomas SYMBICORT 160-4.5 INH 02-25 00:00: 00 Yes Danny Thomas ALBUTEROL PA HFA 200 INH 02-25 00:00: 00 12-25 00:00 :00 No Danny Thomas USE 1 VIAL IN NEBULIZER EVERY 6 HOURS 12-13 00:00: 00 Yes Danny Thomas TAKE 1 TABLET TWICE DAILY. 11-16 00:00: 00 12-25 00:00 :00 No 25 Danny hTomas TAKE 1 TABLET DAILY. 11-16 00:00: 00 12-25 00:00 :00 No 81 Danny Thomas TAKE 1 TABLET BY MOUTH DAILY 11-16 00:00: 00 12-25 00:00 :00 No 75 Danny Thomas TAKE 1 TABLET DAILY. 11-16 00:00: 00 12-25 00:00 :00 No 40 Danny Thomas INHALE 2 PUFFS EVERY 4-6 HOURS, SPACED 60 SECONDS APART. 11-16 00:00: 00 12-25 00:00 :00 No [id number] Danny Thomas INHALE 1 PUFF ONCE DAILY 11-16 00:00: 00 12-25 00:00 :00 No [id number] 5 Danny Thomas INHALE 2 PUFFS BY MOUTH TWICE DAILY. RINSE MOUTH AFTER USE. 11-16 00:00: 00 12-25 00:00 :00 No [id number] Danny Thomas ATORVASTATI N 40MG 2- 00:00: 00 12-25 00:00 :00 No Danny Kishan Thomas METOPROL TAR 25MG 2- 00:00: 00 12-25 00:00 :00 No Danny Kishan Thomas TAKE 1 TABLET BY MOUTH ONCE DAILY 2 00:00: 00 12-25 00:00 :00 No Danny Kishan Thomas TAKE 2 TABLETS BY MOUTH ON DAY 1, AND THEN TAKE 1 TABLET BY MOUTH ONCE A DAY ON DAY 2 THROUGH DAY 5 09-29 00:00: 00 Yes Danny Kishan Thomas PREDNISONE 20MG 09-29 00:00: 00 Yes Danny Kishan Thomas BENZONATATE 100MG 09-29 00:00: 00 Yes Danny Kishan Thomas ALBUTEROL PA HFA 200 INH 09-29 00:00: 00 12-25 00:00 :00 No Danny Kishan Thomas USE 1 VIAL IN NEBULIZER EVERY 8 HOURS NEEDED 2021-08 0- 00:00: 00 Yes Danny Kishan Thomas INHALE 2 PUFFS BY MOUTH EVERY 4 TO 6 HOURS NEEDED 2021-08- 00:00: 00 12-25 00:00 :00 No Danny Kishan Thomas Vital Signs Vital Name Observation Time Observation Value Comments S ource BP Systolic 2024-08-07 10:58:00 144 mm[Hg] Antoni Thomas BP Diastolic 2024-08-07 10:58:00 80 mm[Hg] [place] phen Kishan Thomas Weight Measured 2024-08-07 10:58:00 138.80 pounds Danny Thomas Height Measured 2024-08-07 10:58:00 61.00 inches Danny Thomas Body Temperature 2024-08-07 10:58:00 97.90 degrees Danny Kishan Thomas Heart Rate 2024-08-07 10:58:00 106.00 /min Step hen Kishan Thomas Respiratory Rate 2024-08-07 10:58:00 17.00 /min Danny Thomas Height Measured 2024-01-26 17:41:00 61.00 inches Danny Kishan Thomas Body Temperature 2024-01-26 17:41:00 97.70 degrees Danny F William Heart Rate 2024-01-26 17:41:00 98.00 /min Hansa en F William Respiratory Rate 2024-01-26 17:41:00 19.00 /min Danny F William BP Systolic 2024-01-26 17:41:00 145 mm[Hg] Step hen F William BP Diastolic 2024-01-26 17:41:00 92 mm[Hg] [place] phen F William Weight Measured 2024-01-26 17:41:00 144.00 pounds Danny F William BP Systolic 2023-04-25 11:04:00 139 mm[Hg] Step hen F William BP Diastolic 2023-04-25 11:04:00 80 mm[Hg] [place] phen F William Weight Measured 2023-04-25 11:04:00 140.00 pounds Danny F William Height Measured 2023-04-25 11:04:00 61.00 inches Danny F William Body Temperature 2023-04-25 11:04:00 97.30 degrees Danny F William Heart Rate 2023-04-25 11:04:00 89.00 /min Hansa en F William Respiratory Rate 2023-04-25 11:04:00 Danny F William BP Systolic 2022-11-16 08:02:00 158 mm[Hg] Step hen F William BP Diastolic 2022-11-16 08:02:00 96 mm[Hg] [place] phen F William Weight Measured 2022-11-16 08:02:00 141.80 pounds Danny F William Height Measured 2022-11-16 08:02:00 61.00 inches Danny F William Body Temperature 2022-11-16 08:02:00 97.50 degrees Danny F William Heart Rate 2022-11-16 08:02:00 97.00 /min Hansa en F William Respiratory Rate 2022-11-16 08:02:00 24.00 /min Danny F William Respiratory Rate 2022-10-21 15:29:00 Danny F William BP Systolic 2022-10-21 15:29:00 142 mm[Hg] Step hen F William BP Diastolic 2022-10-21 15:29:00 88 mm[Hg] [place] phen F William Weight Measured 2022-10-21 15:29:00 140.00 pounds Danny F William Height Measured 2022-10-21 15:29:00 61.00 inches Danny Thomas Body Temperature 2022-10-21 15:29:00 97.90 degrees Danny Thomas Heart Rate 2022-10-21 15:29:00 79.00 /min Hansa Thomas Encounters Start Date/Time End Date/Time Encounter Type Admission Type Attending [facility] Care Department Encounter ID Source 2024-08-07 10:52:51 2024-08-07 10:52:51 Outpatient SFA SFA [id number] Danny Thomas 2024-08-07 00:00:00 2024-08-07 00:00:00 Outpatient Visit SFA [id number] Danny Thomas 2024-01-26 17:40:35 2024-01-26 17:40:35 Outpatient SFA [id number] [id number] Danny Thomas 2024-01-26 00:00:00 2024-01-26 00:00:00 Outpatient Visit SFA [id number] Danny Thomas 2023-04-25 11:01:46 2023-04-25 11:01:46 Outpatient SFA [id number] [id number] Danny Thomas 2022-11-16 08:05:23 2022-11-16 08:05:23 Outpatient SFA SFA [id number] Danny Thomas 2022-10-21 15:36:28 2022-10-21 15:36:28 Outpatient SFA [id number] [id number] Danny Thomas
[2024-09-05] MEDS ORDERED: IPRATROPIUM BROM 0.5MG/2.5ML ONE (01:02)
[2024-09-05] MEDS ORDERED: ALBUTEROL 2.5 MG/3 ML NEB SOL ONE (01:02)
[2024-09-05] MEDS ORDERED: PROMETHAZINE 25 MG TABLET ONE (01:02)
[2024-09-05] MEDS ORDERED: ONDANSETRON 4 MG/2 ML VIAL ONE (01:02)
[2024-09-05] MEDS ORDERED: METHYLPREDNISOLONE 125 MG INJ ONE (01:02)
[2024-09-05] MEDS ORDERED: BENZONATATE 100 MG CAP PO ONE (01:03)
[2024-09-05] MEDS ORDERED: CEFTRIAXONE 500 MG/VIAL ONE (01:03)
[2024-09-05] MEDS ORDERED: MORPHINE 4 MG/ML SYR ONE (01:03)
[2024-09-05] MEDS ORDERED: NA CHLORIDE 0.9% 50 ML ONE (01:04)
[2024-09-05 01:55] LABS: Absolute Eosinophils 0.1 K/uL (0-0.5); Absolute Lymphocytes (CBC) 2.1 K/uL (0.7-4.9); Absolute Monocytes 0.5 K/uL (0.1-1.3); Absolute Neutrophil 3.1 K/uL (1.8-8.0); Basophils % 0.7 % (0-1.3); Eosinophils % 1.6 % (0-4.4); Hematocrit 44.5 % (36.0-45.0); Hemoglobin 15.2 g/dL (12.0-15.0); Lymphocytes % 35.9 % (15.3-44.8); MCH 31.1 pg (27.0-35.0); MCHC 34.1 g/dL (32.0-36.0); MCV 91.3 fL (80-100); MPV 9.1 fL (7.6-11.3); Monocytes % 8.4 % (3.3-12.3); Neutrophils % 53.4 % (41.7-73.7); Nucleated Red Blood Cells % 0.1 % (0-0); Platelets 113 thou/uL (152-406); RBC Red Blood Cell Count 4.87 M/uL (3.86-4.86); Red Cell Distribution Width 13.8 % (12.1-15.2)
[2024-09-05 02:12] LABS: Albumin 3.2 g/dL (3.4-5.0); Albumin/Globulin Ratio 0.8 (1.1-1.8); Anion Gap 4.8 mEq/L (5.0-15.0); Bilirubin Direct 0.2 mg/dL (0-0.2); Bilirubin Indirect, Calculated 0.3 mg/dL (0.2-0.8); Bilirubin Total 0.5 mg/dL (0.2-1.0); Magnesium 2.3 mg/dL (1.6-2.4); Potassium 3.8 mEq/L (3.5-5.1); Protein, Total 7.2 g/dL (6.4-8.2); Thyroid Stimulating Hormone 2.19 uIU/mL (0.358-3.740); Troponin High Sensitivity 4.6 pg/mL (<58.9)
[2024-09-05] MEDS ORDERED: NA CHLORIDE 0.9% 250 ML ONE (02:12)
[2024-09-05] MEDS ORDERED: AZITHROMYCIN 500 MG INJ IVPB ONE (02:12)
[2024-09-05 02:14] LABS: PT Prothrombin Time 11.7 SECONDS (9.4-12.5); Protime INR 1.12
--- NOTE | 2024-09-05 02:34 | ER ---
Nurse's Notes [facility] Name: Haleigh Torres Age: 59 yrs Sex: Female : 1965 Arrival Date: 09/05/2024 Time: 00:07 Bed 6 Private MD: Diagnosis: COPD/ Chronic obstructive pulmonary disease with (acute) exacerbation;Acute upper respiratory infection, unspecified Presentation: 09/05 00:41 Chief complaint: Patient states: I have been having worsening SOB for the past 3 days. jb4 Coronavirus screen: At this time, the client does not indicate any symptoms associated with coronavirus-19. Ebola Screen: No symptoms or risks identified at this time. Initial Sepsis Screen: Does the patient meet any 2 criteria? RR > 20 per min. HR > 90 bpm. Yes Does the patient have a suspected source of infection? No. Patient's initial sepsis screen is negative. If YES to both, name of provider notified: Johnny Petit MD Risk Assessment: Do you want to hurt yourself or someone else? Patient reports no desire to harm self or others. Onset of symptoms was September 02, 2024. Transition of care: patient was not received from another setting of care. 00:41 Method Of Arrival: Ambulatory jb4 00:41 Acuity: ANICETO 2 jb4 Historical: - Allergies: 00:42 No Known Allergies; jb4 - PMHx: 00:42 COPD; Myocardial infarction; jb4 - PSHx: 00:42 Stented artery; jb4 - Immunization history:: Adult Immunizations up to date. - Infectious Disease History:: Denies. - Social history:: Smoking status: Patient reports the use of cigarette tobacco products, smokes one pack cigarettes per day. - Family history:: not pertinent. Screenin:44 [facility] ED Fall Risk Assessment (Adult) History of falling in the last 3 months, jb4 including since admission No falls in past 3 months (0 pts) Confusion or Disorientation No (0 pts) Intoxicated or Sedated No (0 pts) Impaired Gait No (0 pts) Mobility Assist Device Used No (0 pt) Altered Elimination No (0 pt) Score/Fall Risk Level 0 - 2 = Low Risk Oriented to surroundings, Maintained a safe environment. Abuse screen: Denies threats or abuse. Nutritional screening: No deficits noted. Tuberculosis screening: No symptoms or risk factors identified. Assessment: 00:43 General: Appears in no apparent distress. comfortable, Behavior is calm, cooperative, jb4 appropriate for age. Pain: Complains of pain in chest Pain does not radiate. Pain currently is 7 out of 10 on a pain scale. Pain began 2-3 days ago. Neuro: Level of Consciousness is awake, alert, obeys commands, Oriented to person, place, time, situation. Cardiovascular: Patient's skin is warm and dry. Respiratory: Airway is patent Respiratory effort is even, labored, Respiratory pattern is symmetrical, tachypnea. Derm: Skin is intact, Skin is pink, warm \T\ dry. Musculoskeletal: Circulation, motion, and sensation intact. Range of motion: intact in all extremities. 02:00 Reassessment: Patient appears in no apparent distress at this time. Patient and/or jb4 family updated on plan of care and expected duration. Pain level reassessed. Patient is alert, oriented x 3, equal unlabored respirations, skin warm/dry/pink. 03:00 Reassessment: Patient appears in no apparent distress at this time. Patient and/or jb4 family updated on plan of care and expected duration. Pain level reassessed. Patient is alert, oriented x 3, equal unlabored respirations, skin warm/dry/pink. Pt placed on 2L NC while sleeping due to desating to 88% on RA. Vital Signs: 00:41 BP 184 / 119; Pulse 96; Resp 32; Temp 98.1(TE); Pulse Ox 100% on R/A; Weight 65.77 kg jb4 (R); Height 5 ft. 2 in. (R); 02:31 BP 153 / 77; Pulse 118; Resp 22; Pulse Ox 92% on R/A; jb4 04:45 BP 118 / 76; Pulse 95; Resp 20; Pulse Ox 95% on 2 lpm NC; ay 00:41 Body Mass Index 26.52 (65.77 kg, 157.48 cm) jb4 Ever Coma Score: 05:09 Eye Response: spontaneous(4). Motor Response: obeys commands(6). Verbal Response: sp4 oriented(5). Total: 15. ED Course: 00:12 Patient arrived in ED. im 00:41 Uziel Carrillo RN is Primary Nurse. jb4 00:41 Johnny Petit MD is Attending Physician. sp4 00:42 Triage completed. jb4 00:42 Arm band placed on right wrist. jb4 00:44 Patient has correct armband on for positive identification. Bed in low position. Call jb4 light in reach. Side rails up X 1. Provided Education on: plan of care. Client placed on continuous cardiac and pulse oximetry monitoring. NIBP monitoring applied. window cleaner on. Pulse ox on. 00:44 Patient maintains SpO2 saturation greater than 95% on room air. jb4 01:07 Missed attempt(s): 20 gauge wrist. vk 01:11 XRAY Chest (1 view) In Process Unspecified. EDMS 01:25 Inserted saline lock: 18 gauge in right antecubital area, using aseptic technique. jb4 Blood collected. 01:31 CRP Sent. jb4 01:31 Lactate w/ 2H reflex if indic. Sent. jb4 01:32 Blood Culture Adult (2) Sent. jb4 01:32 Influenza Screen (a \T\ B) Sent. jb4 01:32 T4 Free Sent. jb4 01:32 TSH Sent. jb4 01:32 Troponin HS Sent. jb4 01:32 PT-INR Sent. jb4 01:32 NT PRO-BNP Sent. jb4 01:32 Magnesium Sent. jb4 01:32 LFT's Sent. jb4 01:32 CBC with Diff Sent. jb4 01:32 Basic Metabolic Panel Sent. jb4 02:32 Benson hCong MD is Hospitalizing Provider. sp4 06:19 Patient admitted, IV remains in place. ay Administered Medications: 01:10 Drug: Albuterol Inhalation 2.5 mg Inhalation every 20 minutes x3 Route: Inhalation; jb4 01:10 Drug: Ipratropium Inhalation Aerosol 0.5 mg Inhalation once; Every 20 min for a total jb4 of 3 treatments x3 Route: Inhalation; 01:30 Drug: Albuterol Inhalation 2.5 mg Inhalation every 20 minutes x3 Route: Inhalation; jb4 01:30 Drug: Ipratropium Inhalation Aerosol 0.5 mg Inhalation once; Every 20 min for a total jb4 of 3 treatments x3 Route: Inhalation; 01:31 Drug: MethylPrednisoLONE IVP 125 mg IVP once Route: IVP; Site: right antecubital; jb4 03:38 Follow up: Response: No adverse reaction; Marked relief of symptoms jb4 01:31 Drug: Tessalon Perle PO 200 mg PO once Route: PO; jb4 03:37 Follow up: Response: No adverse reaction; Marked relief of symptoms jb4 01:31 Drug: Promethazine PO 25 mg PO once Route: PO; jb4 03:36 Follow up: Response: No adverse reaction; Marked relief of symptoms jb4 01:32 Drug: morphine IVP or IV 4 mg IVP once over 4 mins Route: IVP; Infused Over: 4 mins; jb4 Site: right antecubital; 03:38 Follow up: Response: No adverse reaction; Marked relief of symptoms jb4 01:32 Drug: Ondansetron IVP 4 mg IVP once; over 2 minutes Route: IVP; Site: right antecubital;jb4 03:38 Follow up: Response: No adverse reaction; Marked relief of symptoms jb4 01:39 Drug: Rocephin - Rocephin (cefTRIAXone) IVPB 1 grams IVPB once over 30 mins; (mix in 50 jb4 mL NS) Route: IVPB; Infused Over: 30 mins; Site: right antecubital; 02:09 Follow up: Response: No adverse reaction; IV Status: Completed infusion; IV Intake: [id number] 01:50 Drug: Albuterol Inhalation 2.5 mg Inhalation every 20 minutes x3 Route: Inhalation; jb4 03:37 Follow up: Response: No adverse reaction; Marked relief of symptoms jb4 01:50 Drug: Ipratropium Inhalation Aerosol 0.5 mg Inhalation once; Every 20 min for a total jb4 of 3 treatments x3 Route: Inhalation; 03:38 Follow up: Response: No adverse reaction; Marked relief of symptoms jb4 02:31 Drug: Zithromax IVPB 500 mg IVPB once over 1 hrs; mix in 250 mL NS Route: IVPB; Infused jb4 Over: 1 hrs; Site: right antecubital; 06:22 Follow up: IV Status: Completed infusion; IV Intake: 250ml ay Medication: 00:44 VIS not applicable for this client. jb4 Intake: 02:09 IV: 50ml; Total: 50ml. jb4 06:22 IV: 250ml; Total: 300ml. ay Outcome: 02:33 Decision to Hospitalize by Provider. sp4 06:19 Admitted to Med/surg accompanied by tech, via wheelchair, room 201, with oxygen, ay 06:19 Condition: stable 06:19 Instructed on the need for admit, 06:21 Patient left the ED. ay Signatures: Dispatcher [employer] Uziel Keenan RN RN jb4 Johnny Petit MD MD sp4 Doreen Tapia Vivian vk Y[place]ubu, Awudu, RN RN ay
--- NOTE | 2024-09-05 02:34 | EDPHYS ---
Physician Documentation [facility] Name: Haleigh Torres Age: 59 yrs Sex: Female : 1965 Arrival Date: 09/05/2024 Time: 00:07 Bed 6 Private MD: ED Physician Johnny Petit HPI: 09/05 00:41 This 59 yrs old Female presents to ER via Unassigned with complaints of Chest sp4 Pain, Shortness Of Breath. 05:08 59-year-old female with past medical history of COPD presents with complaint of acute sp4 onset of shortness of breath cough chest pain and otherwise feeling unwell.. Historical: - Allergies: 00:42 No Known Allergies; jb4 - PMHx: 00:42 COPD; Myocardial infarction; jb4 - PSHx: 00:42 Stented artery; jb4 - Immunization history:: Adult Immunizations up to date. - Infectious Disease History:: Denies. - Social history:: Smoking status: Patient reports the use of cigarette tobacco products, smokes one pack cigarettes per day. - Family history:: not pertinent. ROS: 05:09 Constitutional: Negative for fever, chills, and weight loss, positive cough, positive sp4 dyspnea, positive congestion, positive nonproductive cough 05:09 All other systems are negative, Exam: 05:08 ECG was reviewed by the Attending Physician. EKG at 0032 reveals normal sinus rhythm. sp4 Rate 96 05:09 Constitutional: This is a well developed, well nourished patient who is awake, alert, sp4 and in no acute distress. Head/Face: Normocephalic, atraumatic. Eyes: Pupils equal round and reactive to light, extra-ocular motions intact. Lids and lashes normal. Conjunctiva and sclera are not injected. Cornea within normal limits. Periorbital areas with no swelling, redness, or edema. ENT: Nares patent. No nasal discharge, no septal abnormalities noted. Tympanic membranes are normal and external auditory canals are clear. Oropharynx with no redness, swelling, or masses, exudates, or evidence of obstruction, uvula midline. Mucous membranes moist. Neck: Trachea midline, no thyromegaly or masses palpated, and no cervical lymphadenopathy. Supple, full range of motion without nuchal rigidity, or vertebral point tenderness. Chest/axilla: Normal chest wall appearance and motion. Nontender with no deformity. No lesions are appreciated. Cardiovascular: Regular rate and rhythm with a normal S1 and S2. No gallops, murmurs, or rubs. Normal PMI, no JVD. No pulse deficits. Respiratory: Lungs have equal breath sounds bilaterally, clear to auscultation and percussion. No rales, rhonchi or wheezes noted. No increased work of breathing, no retractions or nasal flaring. Abdomen/GI: Soft, with normal bowel sounds. No distension or tympany. No guarding or rebound. No evidence of tenderness throughout. Back: No spinal tenderness. No costovertebral tenderness. Skin: Warm, dry with normal turgor. Normal color with no rashes, no lesions, and no evidence of cellulitis. MS/ Extremity: Pulses equal, no cyanosis. Neurovascular intact. Full, normal range of motion. Neuro: Awake and alert, GCS 15, oriented to person, place, time, and situation. Cranial nerves II-XII grossly intact. Motor strength 5/5 in all extremities. Sensory grossly intact. Psych: Awake, alert, with orientation to person, place and time. Behavior, mood, and affect are within normal limits Vital Signs: 00:41 BP 184 / 119; Pulse 96; Resp 32; Temp 98.1(TE); Pulse Ox 100% on R/A; Weight 65.77 kg jb4 (R); Height 5 ft. 2 in. (R); 02:31 BP 153 / 77; Pulse 118; Resp 22; Pulse Ox 92% on R/A; jb4 04:45 BP 118 / 76; Pulse 95; Resp 20; Pulse Ox 95% on 2 lpm NC; ay 00:41 Body Mass Index 26.52 (65.77 kg, 157.48 cm) jb4 Ever Coma Score: 05:09 Eye Response: spontaneous(4). Motor Response: obeys commands(6). Verbal Response: sp4 oriented(5). Total: 15. MDM: 00:42 Medical Screening Exam initiated sp4 05:09 ED course: EXAM DESCRIPTION: Chest Single View CLINICAL HISTORY: CHEST PAIN COMPARISON: sp4 None TECHNIQUE: Single AP view of the chest. FINDINGS: Lung volumes adequate. Cardiac silhouette is normal in size. No pneumothorax. No large pleural effusion. No focal consolidation. No acute bony finding. IMPRESSION: No evidence of acute cardiopulmonary disease. 05:12 Differential diagnosis: acute pericarditis, anxiety, coronary artery disease chest wall sp4 pain, congestive heart failure gastritis. HEART Score: History: Slightly Suspicious (0), ECG: Normal (0), Age: > 45 and < 65 years (1), Risk Factors: 1 or 2 risk factors (1), Troponin: < or = 1 x Normal Limit (0), Total Score = 2. The patient was not given aspirin in the Emergency Department. Aspirin not given, patient refused. Data reviewed: vital signs, nurses notes, old medical records, lab test result(s), EKG, radiologic studies, plain films. ED course: Patient at this time warrants admission for COPD exacerbation.. . 09/05 00:42 Order name: Basic Metabolic Panel; Complete Time: 09/05 00:42 Order name: CBC with Diff; Complete Time: 09/05 00:42 Order name: LFT's; Complete Time: 09/05 00:42 Order name: Magnesium; Complete Time: 09/05 00:42 Order name: NT PRO-BNP; Complete Time: :09/05 00:42 Order name: PT-INR; Complete Time: 09/05 00:42 Order name: Troponin HS; Complete Time: :09/05 00:42 Order name: TSH; Complete Time: :09/05 00:42 Order name: T4 Free; Complete Time: 09/05 00:43 Order name: Influenza Screen (a \T\ B); Complete Time: 09/05 00:43 Order name: Blood Culture Adult (2) 09/05 00:50 Order name: Lactate w/ 2H reflex if indic.; Complete Time: 09/05 00:50 Order name: CRP; Complete Time: 09/05 03:39 Order name: CBC with Automated Diff EDMS 09/05 03:39 Order name: CBC with Automated Diff EDMS 09/05 03:39 Order name: Comprehensive Metabolic Panel EDMS 09/05 03:39 Order name: Comprehensive Metabolic Panel EDMS 09/05 00:42 Order name: XRAY Chest (1 view) sp4 09/05 00:42 Order name: Cardiac monitoring; Complete Time: 00:42 sp4 09/05 00:42 Order name: EKG - Nurse/Tech; Complete Time: 00:42 sp4 09/05 00:42 Order name: IV Saline Lock; Complete Time: 01:43 sp4 09/05 00:42 Order name: Labs collected and sent; Complete Time: 01:43 sp4 09/05 00:42 Order name: O2 Per Protocol; Complete Time: 00:42 sp4 09/05 00:42 Order name: O2 Sat Monitoring; Complete Time: 00: sp4 EC:32 Rate is 96 beats/min. Rhythm is regular, Normal Sinus Rhythm. QRS [place] is Normal. [place] sp4 interval is normal. QRS interval is normal. QT interval is normal. No Q waves. T waves are Normal. No ST changes noted. Clinical impression: No evidence of ischemia. Interpreted by me. Reviewed by me. Administered Medications: 01:10 Drug: Albuterol Inhalation 2.5 mg Inhalation every 20 minutes x3 Route: Inhalation; jb4 01:10 Drug: Ipratropium Inhalation Aerosol 0.5 mg Inhalation once; Every 20 min for a total jb4 of 3 treatments x3 Route: Inhalation; 01:30 Drug: Albuterol Inhalation 2.5 mg Inhalation every 20 minutes x3 Route: Inhalation; jb4 01:30 Drug: Ipratropium Inhalation Aerosol 0.5 mg Inhalation once; Every 20 min for a total jb4 of 3 treatments x3 Route: Inhalation; 01:31 Drug: MethylPrednisoLONE IVP 125 mg IVP once Route: IVP; Site: right antecubital; jb4 03:38 Follow up: Response: No adverse reaction; Marked relief of symptoms jb4 01:31 Drug: Tessalon Perle PO 200 mg PO once Route: PO; jb4 03:37 Follow up: Response: No adverse reaction; Marked relief of symptoms jb4 01:31 Drug: Promethazine PO 25 mg PO once Route: PO; jb4 03:36 Follow up: Response: No adverse reaction; Marked relief of symptoms jb4 01:32 Drug: morphine IVP or IV 4 mg IVP once over 4 mins Route: IVP; Infused Over: 4 mins; jb4 Site: right antecubital; 03:38 Follow up: Response: No adverse reaction; Marked relief of symptoms jb4 01:32 Drug: Ondansetron IVP 4 mg IVP once; over 2 minutes Route: IVP; Site: right antecubital;jb4 03:38 Follow up: Response: No adverse reaction; Marked relief of symptoms jb4 01:39 Drug: Rocephin - Rocephin (cefTRIAXone) IVPB 1 grams IVPB once over 30 mins; (mix in 50 jb4 mL NS) Route: IVPB; Infused Over: 30 mins; Site: right antecubital; 02:09 Follow up: Response: No adverse reaction; IV Status: Completed infusion; IV Intake: [id number] 01:50 Drug: Albuterol Inhalation 2.5 mg Inhalation every 20 minutes x3 Route: Inhalation; jb4 03:37 Follow up: Response: No adverse reaction; Marked relief of symptoms jb4 01:50 Drug: Ipratropium Inhalation Aerosol 0.5 mg Inhalation once; Every 20 min for a total jb4 of 3 treatments x3 Route: Inhalation; 03:38 Follow up: Response: No adverse reaction; Marked relief of symptoms jb4 02:31 Drug: Zithromax IVPB 500 mg IVPB once over 1 hrs; mix in 250 mL NS Route: IVPB; Infused jb4 Over: 1 hrs; Site: right antecubital; 06:22 Follow up: IV Status: Completed infusion; IV Intake: 250ml ay Disposition Summary: 09/05/24 02:33 Hospitalization Ordered Notes: Hospitalization Status: Inpatient Admission sp4 Provider: Benson Chong spNahtan Location: Telemetry/[facility] (observation) sp4 Condition: Stable sp4 Problem: new sp4 Symptoms: have improved sp4 Bed/Room Type: Standard sp4 Room Assignment: 201(09/05/24 04:17) [facility] Diagnosis - COPD/ Chronic obstructive pulmonary disease with (acute) exacerbation sp4 - Acute upper respiratory infection, unspecified sp4 Forms: - Medication Reconciliation Form sp4 - SBAR form sp4 - Leadership Thank You Letter sp4 Signatures: Dispatcher [employer] Uziel Keenan RN RN jb4 Potepalov, Sergey, MD MD sp4 Terra Balderrama [facility] Linda Gordon RN Corrections: (The following items were deleted from the chart) 00:43 00:43 BASIC METABOLIC PANEL+C.LAB.BRZ ordered. EDMS EDMS 00:43 00:43 CBC+H.LAB.BRZ ordered. EDMS EDMS 00:43 00:43 HEPATIC FUNCTION+C.LAB.BRZ ordered. EDMS EDMS 00: 00:43 MAGNESIUM+C.LAB.BRZ ordered. EDMS EDMS 00:43 00:43 PROBNP+C.LAB.BRZ ordered. EDMS EDMS 00: 00:43 PROTIME (+INR)+COAG.LAB.BRZ ordered. EDMS EDMS 00:43 00:43 Troponin High Sensitivity+C.LAB.BRZ ordered. EDMS EDMS 00:43 00:43 Chest Single View+RAD.RAD.BRZ ordered. EDMS EDMS 00:43 00:43 Influenza Screen (A \T\ B)+BA.LAB.BRZ ordered. EDMS EDMS 00:43 00:43 BLOOD CULTURE*+BA.LAB.BRZ ordered. EDMS EDMS 04:17 02:33 sp4 kmf
--- NOTE | 2024-09-05 03:23 | P.HP ---
Certification for Inpatient Patient admitted to: Inpatient With expected LOS: >2 Midnights Practitioner: I am a practitioner with admitting privileges, knowledge of patient current condition, hospital course, and medical plan of care. Services: Services provided to patient in accordance with Admission requirements found in Title 42 Section 412.3 of the Code of Federal Regulations Patient History Date of Service: 09/05/24 Reason for admission: SOB History of Present Illness: 59 year-old woman with a history of COPD, hypertension, CAD status post stent who came to ER with shortness of breath. She is a current smoker. Brought to ER with shortness of breath which has been progressively getting worse. She had flulike symptoms for the last few days. Denies any chest pain. No fever or chills. No nausea vomiting or diarrhea. Patient was assessed in the ER and is admitted for further management of COPD exacerbation. Allergies No Known Allergies Allergy (Verified 01/28/21 14:11) Home medications list reviewed: Yes Home Medications: Albuterol Inhaler [Ventolin Inhaler*] 2 puff IH Q6H PRN 10/15/22 Aspirin [Aspirin EC 81 MG] 81 mg PO DAILY #30 tab 10/16/22 Atorvastatin Calcium [Lipitor] 40 mg PO BEDTIME 30 Days #30 tab 10/16/22 Clopidogrel Bisulfate [Plavix] 75 mg PO DAILY 30 Days #30 tab 10/16/22 Metoprolol Tartrate [Lopressor] 25 mg PO BID 30 Days #60 tab 10/16/22 - Past Medical/Surgical History Diabetic: No Past Medical History: Reviewed- Non-Contributory -: COPD -: "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 Past Surgical History: Reviewed- Non-Contributory -: face reconstruction from dog attack as a child - Family History Sister -: Heart disease (Sister and mother), Diabetes, Cancer - Social History Smoking Status: Current some day smoker Alcohol use: No CD- Drugs: No Caffeine use: Yes Review of Systems 10-point ROS is otherwise unremarkable Physical Examination - Vital Signs Temperature: 97.8 F Blood Pressure: 132/78 Pulse: 76 Respirations: 18 Pulse Ox (%): 90 - Physical Exam General: Alert, Oriented x3, Mild distress HEENT: Atraumatic, Normocephalic Neck: Supple, 2+ carotid pulse no bruit Respiratory: Diminished, Crackles/rales, Expiratory wheezes Cardiovascular: No edema, Regular rate/rhythm Capillary refill: <2 Seconds Gastrointestinal: Soft and benign, W/out hepatosplenomegaly Musculoskeletal: No clubbing, No swelling Integumentary: No rashes Neurological: Normal speech, Normal strength at 5/5 x4 extr, Cranial nerves 3-12 intact, Normal affect Lymphatics: No axilla or inguinal lymphadenopathy - Studies Laboratory Data (last 24 hrs) 09/05/24 09/05/24 09/05/24 01:25 01: 01:25 WBC 5.70 Hgb 15.2 H Hct 44.5 Plt Count 113 L PT 11.7 INR 1.12 Sodium 140 Potassium 3.8 BUN 15 Creatinine 1.11 H Glucose 116 H Magnesium 2.3 Total Bilirubin 0.5 AST 56 H ALT 62 H Alkaline Phosphatase 124 H Microbiology Data (last 24 hrs): 09/05/24 00:54 Nasopharnyx Influenza Type A Antigen Screen - Final 09/05/24 00:54 Nasopharnyx Influenza Type B Antigen Screen - Final Assessment and Plan - Plan Acute COPD exacerbation Monitor closely on telemetry Started on bronchodilators Steroids added ABG findings noted Chest x-ray findings noted Pulmonology consult if not better in the a.m. Acute on chronic hypoxic respiratory failure Oxygen supplementation Hypertension CAD Antihypertensives titrated Continue home medications and titrate as needed Elevated LFTs Monitor LFTs in a.m. GI/DVT prophylaxis Advanced directive full code Discharge Plan: Home Plan to discharge in: 48 Hours - Advance Directives Does patient have a Living Will: No Does patient have a Durable POA for Healthcare: No - Code Status/Comfort Care Code Status: Full Code Time Spent Managing Pts Care (In Minutes): 48
[2024-09-05] MEDS ORDERED: ACETAMINOPHEN 325 MG TABLET PO PRN (03:34)
[2024-09-05] MEDS ORDERED: ONDANSETRON 4 MG/2 ML VIAL IV PRN (03:34)
--- NOTE | 2024-09-05 06:34 | RAD REPORT ---
EXAM DESCRIPTION: Chest Single View CLINICAL HISTORY: CHEST PAIN COMPARISON: None TECHNIQUE: Single AP view of the chest. FINDINGS: Lung volumes adequate. Cardiac silhouette is normal in size. No pneumothorax. No large pleural effusion. No focal consolidation. No acute bony finding. IMPRESSION: No evidence of acute cardiopulmonary disease. Electronically signed by: Pop Muhammad MD 09/05/2024 02:06 AM [facility] [id number] Due to temporary technical issues with the PACS/SonoPlot reporting system, reports are being prosper d by the in-house radiologist without review as a courtesy to ensure prompt reporting the interpreting radiologist is fully responsible for the content of the report. Transcribed Date/Time: 09/05/2024 6:33 AM
[2024-09-05] MEDS: METHYLPREDNISOLONE 125 MG INJ IV SCH (06:44)
--- NOTE | 2024-09-05 07:20 | P.PN ---
Date of Service: 09/05/24 Subjective: no acute events overnight no significant change continues with cough shortness of breath ROS: 10 point ROS as noted above, otherwise negative Physical Exam: GEN: Alert, NAD CV: Regular rate and rhythm, no edema Pulm: mildly labored respirations on 2L NC, diminished bilaterally, +cough, +wheeze ABD: soft, nontender, nondistended Neuro: Normal speech, normal affect Problem List: Acute on chronic COPD exacerbation Acute on chronic hypoxic respiratory failure secondary to above Elevated LFTs; mild Hypertension Hyperlipidemia Hypothyroidism Tobacco use Hx CAD s/p RCA PCI (2022) Acute on chronic COPD exacerbation Acute on chronic hypoxic respiratory failure secondary to above on admission, presents with worsening shortness of breath, cough, chest discomfort for ~3 days. Reports flulike symptoms over the past week. Denies nausea/vomiting. Smokes 1 pack/day for 30+ years. Cessation advised CXR (09/05): negative for any acute findings Given nebs, steroids, IV abx in ED. continue IV steroids for now, de-escalate in next ~24hrs continue mervat Fournier, Pulm consulted continue empiric azithromycin to cover possible infection Follow blood cultures Confirm home meds, restart as appropriate cough medication Elevated LFTs; mild unknown etiology Continue to monitor Hypertension Hyperlipidemia Hypothyroidism Hx CAD s/p RCA PCI (2022) confirm home meds, restart as appropriate resume home aspirin, metoprolol, plavix VTE: Lovenox Code: Full Dispo: home Pending off oxygen, Pulm recs Time Spent Managing Pts Care (In Minutes): 55
[2024-09-05] MEDS: ALBUTEROL 2.5 MG/3 ML NEB SOL NEB SCH (07:56)
[2024-09-05] MEDS: ENOXAPARIN 40 MG/0.4 ML SQ SCH (09:52)
[2024-09-05] MEDS: AZITHROMYCIN IV 500 MG in NA CHLORIDE 0.9% 250 ML IVPB SCH (09:52)
[2024-09-05] MEDS: ASPIRIN EC 81 MG TAB PO SCH (09:52)
[2024-09-05] MEDS: CLOPIDOGREL 75 MG TABLET PO SCH (09:52)
[2024-09-05] MEDS: METOPROLOL TAR 25 MG TAB PO SCH (09:52)
[2024-09-05] MEDS: POTASSIUM 25 MEQ EFFERV TAB PO ONE (12:26)
[2024-09-05] MEDS: CODEINE 30MG/APAP 300MG TAB PO PRN (12:27)
[2024-09-05] MEDS: NICOTINE 21 MG/PAT TD SCH (15:14)
[2024-09-05] MEDS: ATORVASTATIN 40 MG TAB PO SCH (22:20)
[2024-09-05] MEDS: GUAIFENESIN/CODEINE 5ML UCUP PO PRN (22:24)
[2024-09-05] MEDS: MELATONIN 3 MG TABLET PO ONE (23:13)
[2024-09-06 08:06] LABS: Absolute Lymphocytes (CBC) 0.8 K/uL (0.7-4.9); Absolute Monocytes 0.5 K/uL (0.1-1.3); Absolute Neutrophil 9.6 K/uL (1.8-8.0); Basophils % 0.3 % (0-1.3); Hematocrit 40.4 % (36.0-45.0); Hemoglobin 13.6 g/dL (12.0-15.0); Lymphocytes % 7.6 % (15.3-44.8); MCH 31.4 pg (27.0-35.0); MCHC 33.8 g/dL (32.0-36.0); MCV 92.9 fL (80-100); MPV 9.3 fL (7.6-11.3); Monocytes % 4.3 % (3.3-12.3); Neutrophils % 87.8 % (41.7-73.7); Nucleated Red Blood Cells % 0.1 % (0-0); Platelets 92 thou/uL (152-406); RBC Red Blood Cell Count 4.35 M/uL (3.86-4.86)
[2024-09-06 08:29] LABS: Albumin 2.9 g/dL (3.4-5.0); Albumin/Globulin Ratio 0.8 (1.1-1.8); Bilirubin Total 0.2 mg/dL (0.2-1.0); Globulin 3.7 g/dL (2.3-3.5); Magnesium 2.4 mg/dL (1.6-2.4); Phosphorus 2.4 mg/dL (2.5-4.9); Protein, Total 6.6 g/dL (6.4-8.2)
[2024-09-06 08:49] LABS: Blood Morphology Comment NOT SEEN (NOT SEEN); Platelet Estimate DECR; White Blood Cell Scan OK (OK)
[2024-09-06] MEDS: DULERA 100/5 (MOMETASONE/FORMOTEROL) INHALER IH SCH (09:35)
--- NOTE | 2024-09-06 10:25 | P.PN ---
Date of Service: 09/06/24 Subjective: cough ~same. [place] some relief with robitussin breathing feels slightly easier reports running out of her home Trelegy recently feels some burning around IV site ROS: 10 point ROS as noted above, otherwise negative Physical Exam: GEN: Alert, NAD CV: Regular rate and rhythm, no edema Pulm: mildly labored respirations on 2L NC, +cough, +wheeze Neuro: Normal speech, normal affect Problem List: Acute on chronic COPD exacerbation Acute on chronic hypoxic respiratory failure secondary to above Elevated LFTs; mild Hypertension Hyperlipidemia Hypothyroidism Tobacco use Hx CAD s/p RCA PCI (2022) Acute on chronic COPD exacerbation Acute on chronic hypoxic respiratory failure secondary to above on admission, presents with worsening shortness of breath, cough, chest discom fort for ~3 days. Reports flulike symptoms over the past week. Denies nausea/vomiting. Smokes 1 pack/day for 30+ years. Cessation advised States she ran out of her home Trelegy recently CXR (09/05): negative for any acute findings continue mervat Fournier, Pulm consulted Follow blood cultures continue empiric abx to cover possible infection; deescalate to oral abx Respiratory status improving. Cough relieved with robitussin Deescalate IV steroids to PO Dulera inhaler added 09/06. Elevated LFTs; mild unknown etiology Daily labs. Continue to monitor Hypertension Hyperlipidemia Hypothyroidism Hx CAD s/p RCA PCI (2022) confirm home meds, restart as appropriate resume home aspirin, metoprolol, plavix VTE: Lovenox Code: Full Dispo: home, ~24-48hrs Pending off oxygen, Pulm recs Time Spent Managing Pts Care (In Minutes): 55
[2024-09-06] MEDS: NA CHLORIDE 0.9% 1,000 ML IV SCH (10:53)
--- NOTE | 2024-09-06 11:53 | EKG ---
Test Date: 2024-09-05 Test Time: 00:32:13 Bottomer Operator: TEMO MEASUREMENT RESULTS: Intervals: Rate: 96 CT: 144 QRSD: 64 QT: 338 QTc: 427 [place]: P: 85 CT: 144 QRS: 86 T: 82 INTERPRETIVE STATEMENTS: Normal sinus rhythm Biatrial enlargement Low voltage QRS Abnormal ECG Compared to ECG 03/22/2023 11:35:21 Low QRS voltage now present Electronically Signed On 09-06-24 11:52:59 ASSISTANT ASSOCIATE PROFESSOR by Jamaal Khan
--- NOTE | 2024-09-06 16:35 | P.CNS ---
Date of Consult: 09/06/24 Reason for Consult: COPD exacerbation Chief Complaint: SOB History of Present Illness: PT is 59 yrs old Hx of COPD active smoker worse past 5 days. Using Symbicort not helping Cough and congestion. Treelgy helpeda lot Allergies No Known Allergies Allergy (Verified 01/28/21 14:11) Home Medications: Aspirin [Aspirin EC 81 MG] 81 mg PO DAILY #30 tab 10/16/22 Atorvastatin Calcium [Lipitor] 40 mg PO BEDTIME 30 Days #30 tab 10/16/22 Clopidogrel Bisulfate [Plavix] 75 mg PO DAILY 30 Days #30 tab 10/16/22 Metoprolol Tartrate [Lopressor] 25 mg PO BID 30 Days #60 tab 10/16/22 Albuterol Sulfate [Proair Respiclick] 2 puff IH Q4HP PRN 09/05/24 Budesonide/Formoterol Fumarate [Symbicort 160-4.5 Mcg Inhaler] 2 puff IH BID 09/05/24 - Past Medical/Surgical History Diabetic: No -: COPD -: "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 -: Hypothyroid -: HTN -: MA -: CAD -: HLD -: face reconstruction from dog attack as a child -: Stent x1 - Family History Sister Medical History: Heart disease, Diabetes, Cancer Notes: Throat Cancer Mother Medical History: Heart disease Father Medical History: Liver disease Notes: Cirrhosis - Social History Smoking Status: Current every day smoker Alcohol use: No CD- Drugs: No Caffeine use: Yes Place of Residence: Home Review of Systems 10-point ROS is otherwise unremarkable Respiratory: Cough, Shortness of Breath Physical Examination Temp Pulse Resp BP Pulse Ox 97.8 F 83 14 109/58 L 95 09/06/24 16:00 09/06/24 16:00 09/06/24 16:00 09/06/24 16:00 09/06/24 16:00 General: Alert Respiratory: Clear to auscultation bilaterally, Diminished Cardiovascular: No edema, Regular rate/rhythm, Normal S1 S2 Gastrointestinal: Normal bowel sounds, Soft and benign Integumentary: No rashes, No breakdown - Problems (1) Chronic obstructive pulmonary disease with (acute) exacerbation Current Visit: Yes Status: Acute Plan: Age 59 AW acute exacerbation of COPD. Trelegy faxed to [facility] better than Symbicort. Renal insuff, mild thrombocytopnia/ CXYR neg. AW hyperglycemia. Doign better discharge am on LABA/steroids avoid pred to f/u with me 2 wks Counselled not to smoke Abnormal LFT
[2024-09-06] MEDS: ALBUTEROL 2.5 MG/3 ML NEB SOL NEB PRN (20:05)
[2024-09-06] MEDS: MELATONIN 3 MG TABLET PO SCH (20:37)
[2024-09-06] MEDS: AMOX/K CLAV 875 MG TAB PO SCH (20:37)
[2024-09-06] MEDS: predniSONE 10 MG TAB PO SCH (20:37)
[2024-09-06] MEDS ORDERED: MELATONIN 3 MG TABLET PO ONE (22:36)
[2024-09-07 05:31] LABS: Albumin 2.5 g/dL (3.4-5.0); Albumin/Globulin Ratio 0.8 (1.1-1.8); Anion Gap 6.5 mEq/L (5.0-15.0); Bilirubin Total 0.2 mg/dL (0.2-1.0); Globulin 3.2 g/dL (2.3-3.5); Magnesium 2.2 mg/dL (1.6-2.4); Potassium 4.5 mEq/L (3.5-5.1); Protein, Total 5.7 g/dL (6.4-8.2)
[2024-09-07] MEDS: PANTOPRAZOLE 40MG TABLET PO SCH (05:32)
[2024-09-07] MEDS: POTASS/SODIUM PHOSPHATE 1 PKT POWD.PACK PO SCH (09:53)
--- NOTE | 2024-09-07 10:11 | P.PN ---
Date of Service: 09/07/24 Subjective: reports some chest discomfort, worsening shortness of breath this morning - woke up feeling like a lot of pressure on chest Lungs sound clearer on exam. cough ~same breathing worsened with activity ROS: 10 point ROS as noted above, otherwise negative Physical Exam: GEN: Alert, NAD CV: Regular rate and rhythm, no edema Pulm: mildly labored respirations on 2L NC, +cough, +wheeze Neuro: Normal speech, normal affect Problem List: Acute on chronic COPD exacerbation Acute on chronic hypoxic respiratory failure secondary to above Elevated LFTs; mild Hypertension Hyperlipidemia Hypothyroidism Tobacco use Hx CAD s/p RCA PCI (2022) Acute on chronic COPD exacerbation Acute on chronic hypoxic respiratory failure secondary to above on admission, presents with worsening shortness of breath, cough, chest discomfort for ~3 days. Reports flulike symptoms over the past week. Denies nausea/vomiting. Smokes 1 pack/day for 30+ years. Cessation advised States she ran out of her home Trelegy recently CXR (09/05): negative for any acute findings Dr. Fournier, Pulm consulted Blood cx: NGTD continue empiric Augmentin to cover possible infection continue prednisone, duonebs, dulera inhaler Mucinex added for cough 09/07 check EKG, Troponin given chest discomfort Protonix added 09/07 given heartburn Elevated LFTs; mild unknown etiology Daily labs. Continue to monitor Hypertension Hyperlipidemia Hypothyroidism Hx CAD s/p RCA PCI (2022) confirm home meds, restart as appropriate continue home aspirin, metoprolol, plavix chest pain -trend trop, ekg without ischemic changes cardio consult VTE: Lovenox Code: Full Dispo: home, ~ Tuesday vs Tuesday pulm recs, cough improves Time Spent Managing Pts Care (In Minutes): 55
[2024-09-07] MEDS ORDERED: GUAIFENESIN/CODEINE 5ML UCUP PO PRN (10:30)
[2024-09-07] MEDS: GUAIFENESIN 600 MG SA TAB PO SCH (11:21)
[2024-09-08 06:31] VITALS: BMI 25.6
[2024-09-08 06:34] LABS: Absolute Lymphocytes (CBC) 0.8 K/uL (0.7-4.9); Absolute Monocytes 0.3 K/uL (0.1-1.3); Absolute Neutrophil 2.8 K/uL (1.8-8.0); Basophils % 0.2 % (0-1.3); Hematocrit 35.7 % (36.0-45.0); Hemoglobin 12.1 g/dL (12.0-15.0); Lymphocytes % 20.9 % (15.3-44.8); MCH 31.9 pg (27.0-35.0); MCHC 33.9 g/dL (32.0-36.0); MPV 9.7 fL (7.6-11.3); Monocytes % 6.4 % (3.3-12.3); Neutrophils % 72.5 % (41.7-73.7); Nucleated Red Blood Cells % 0.1 % (0-0); Platelets 71 thou/uL (152-406); RBC Red Blood Cell Count 3.79 M/uL (3.86-4.86); Red Cell Distribution Width 13.9 % (12.1-15.2)
[2024-09-08 06:45] LABS: Albumin 2.5 g/dL (3.4-5.0); Albumin/Globulin Ratio 0.8 (1.1-1.8); Anion Gap 8.1 mEq/L (5.0-15.0); Bilirubin Total 0.2 mg/dL (0.2-1.0); Globulin 3.1 g/dL (2.3-3.5); Magnesium 2.1 mg/dL (1.6-2.4); Potassium 4.1 mEq/L (3.5-5.1); Protein, Total 5.6 g/dL (6.4-8.2)
--- NOTE | 2024-09-08 09:41 | P.PN ---
Date of Service: 09/08/24 Subjective: Breathing feels slightly easier cough improving. able to ambulate slightly farther before getting winded/SOB. 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 ROS: 10 point ROS as noted above, otherwise negative Physical Exam: GEN: Alert, NAD CV: Regular rate and rhythm, no edema Pulm: mildly labored respirations on 2L NC, +cough, +mild wheeze Neuro: Normal speech, normal affect Problem List: Acute on chronic COPD exacerbation Acute on chronic hypoxic respiratory failure secondary to above Hx CAD s/p RCA PCI (2022) Elevated LFTs; mild Hypertension Hyperlipidemia Hypothyroidism Tobacco use Acute on chronic COPD exacerbation Acute on chronic hypoxic respiratory failure secondary to above on admission, presents with worsening shortness of breath, cough, chest discomfort for ~3 days. Reports flulike symptoms over the past week. Denies nausea/vomiting. Smokes 1 pack/day for 30+ years. Cessation advised States she ran out of her home Trelegy recently CXR (09/05): negative for any acute findings Dr. Fournier, Pulm consulted Blood cx: NGTD continue empiric Augmentin to cover possible infection continue prednisone, duonebs, dulera inhaler Mucinex added for cough 09/07 Protonix added 09/07 given heartburn Hx CAD s/p RCA PCI (2022) chest pain -troponin negative EKG without ischemic changes Cardiology consulted Prior echo (10/16/22): 66% EF, normal wall motion, normal diastolic function, mild MR. Prior LHC (10/16/22): severe distal RCA stenosis 99% s/p PCI. 30% mid LAD stenosis, 20% mid-distal LAD stenosis, 30% mid RCA stenosis. Dr. Ma planning for [facility]. Anticipate Tue/. Unsure on timing given that Tuesday is a holiday. Elevated LFTs; mild Daily labs. Continue to monitor improving/stable. Hypertension Hyperlipidemia Hypothyroidism confirm home meds, restart as appropriate continue home aspirin, metoprolol, plavix VTE: Lovenox Code: Full Dispo: Home, ~Tuesday vs Tuesday Cardiology planning for [facility] ~Tue/. Unsure on timing given that Tuesday is a holiday pulm recs, cough improves Time Spent Managing Pts Care (In Minutes): 55
--- NOTE | 2024-09-08 19:30 | RAD REPORT ---
EXAM: AP view(s) of the abdomen Abdomen 1 View (KUB) HISTORY: distended abdomen COMPARISON: None FINDINGS: Nonobstructive bowel gas pattern.. Mild to moderate colonic stool burden. No suspicious calcifications are seen. No acute osseous abnormality. Other: n/a IMPRESSION: Nonobstructive bowel gas pattern.
[2024-09-09] MEDS: TRAZODONE 50 MG TABLET PO PRN (03:59)
[2024-09-09 05:31] LABS: Albumin 2.6 g/dL (3.4-5.0); Albumin/Globulin Ratio 0.8 (1.1-1.8); Anion Gap 6.5 mEq/L (5.0-15.0); Bilirubin Total 0.3 mg/dL (0.2-1.0); Globulin 3.2 g/dL (2.3-3.5); Magnesium 2.3 mg/dL (1.6-2.4); Potassium 4.5 mEq/L (3.5-5.1); Protein, Total 5.8 g/dL (6.4-8.2)
--- NOTE | 2024-09-09 10:58 | P.PN ---
Date of Service: 09/09/24 Subjective: reports increased abdominal pains, with increased swelling/ distention - mostly under ribs denies constipation reports multiple BM since admission, +flatus. cough improving ROS: 10 point ROS as noted above, otherwise negative Physical Exam: GEN: Alert, NAD CV: Regular rate and rhythm, no edema Pulm: mildly labored respirations on 2L NC, +cough, +mild wheeze abd: mild distention, soft Neuro: Normal speech, normal affect Problem List: Acute on chronic COPD exacerbation Acute on chronic hypoxic respiratory failure secondary to above Hx CAD s/p RCA PCI (2022) Elevated LFTs; mild Hypertension Hyperlipidemia Hypothyroidism Tobacco use Acute on chronic COPD exacerbation Acute on chronic hypoxic respiratory failure secondary to above on admission, presents with worsening shortness of breath, cough, chest discomfort for ~3 days. Reports flulike symptoms over the past week. Denies nausea/vomiting. Smokes 1 pack/day for 30+ years. Cessation advised States she ran out of her home Trelegy recently CXR (09/05): negative for any acute findings Dr. Fournier, Pulm consulted Blood cx: NGTD continue empiric Augmentin to cover possible infection continue prednisone, duonebs, dulera inhaler Mucinex added for cough 09/07 Protonix added 09/07 given heartburn Hx CAD s/p RCA PCI (2022) chest pain -troponin negative EKG without ischemic changes Cardiology consulted Prior echo (10/16/22): 66% EF, normal wall motion, normal diastolic function, mild MR. Prior LHC (10/16/22): severe distal RCA stenosis 99% s/p PCI. 30% mid LAD stenosis, 20% mid-distal LAD stenosis, 30% mid RCA stenosis. Dr. Ma planning for [facility]. Anticipate ~. Unsure on timing. Abdominal pain, unclear etiology Elevated LFTs; mild reports increased abdominal pains, with increased swelling, distention that started yesterday denies constipation reports multiple BM since admission, +flatus. KUB (09/08): non-obstructive bowel gas pattern. +mild-moderate colonic stool burden Daily labs. Continue to monitor LFTs will check CT abdomen to further evaluate Hypertension Hyperlipidemia Hypothyroidism confirm home meds, restart as appropriate continue home aspirin, metoprolol, plavix VTE: Lovenox Code: Full Dispo: Home, ~2 days Cardiology planning for [facility] Tuesday pulm recs, abd pain improves Time Spent Managing Pts Care (In Minutes): 55
--- NOTE | 2024-09-09 17:50 | RAD REPORT ---
EXAMINATION: CT Abdomen Pelvis W Contrast CLINICAL INDICATION: Female, 59 years old. abdominal pain/distention, elevated lfts TECHNIQUE: CT abdomen and pelvis was performed, after the administration of IV contrast, as per [facility] protocol. Axial, sagittal and coronal reconstructions were obtained. One or more of the following dose reduction techniques were used: Automated exposure control, adjustment of the mA and k V according to patient size, and iterative reconstruction. Unless otherwise specified, incidental findings do not require dedicated imaging follow-up. COMPARISON: 05/31/2023 FINDINGS: LOWER CHEST: Trace layering right pleural effusion. LIVER: Nodular contour with diffuse parenchymal hypoattenuation, suggesting cirrhotic change as well as steatosis. Stable calcific lesion near the gallbladder bed measuring 1 cm. No other suspicious focal lesion. BILIARY SYSTEM: No suspicious abnormalities. SPLEEN: Enlarged, measuring 14.1 cm in long axis. No focal lesion. PANCREAS: No mass, ductal dilation, or chao-pancreatic fluid. ADRENALS: Normal; no mass. KIDNEYS: Normal size and contour. No hydronephrosis. URINARY BLADDER: Unremarkable. GASTROINTESTINAL TRACT: No evidence of free air, bowel obstruction or abscess. Mild free ascites. Si gmoid diverticulosis without evidence of acute diverticulitis. APPENDIX: Normal appendix. LYMPH NODES: No lymphadenopathy. MUSCULOSKELETAL: No acute or suspicious osseous abnormality. ADDITIONAL FINDINGS: None. IMPRESSION: Stigmata of cirrhosis with splenomegaly mild free ascites. Trace layering right pleural effusion. Other incidental findings as above.
[2024-09-09] MEDS: ALBUTEROL 2.5 MG/3 ML NEB SOL ONE (20:21)
[2024-09-10 05:17] LABS: Absolute Lymphocytes (CBC) 0.9 K/uL (0.7-4.9); Absolute Monocytes 0.3 K/uL (0.1-1.3); Absolute Neutrophil 3.5 K/uL (1.8-8.0); Basophils % 0.2 % (0-1.3); Eosinophils % 0.4 % (0-4.4); Hematocrit 36.5 % (36.0-45.0); Hemoglobin 12.5 g/dL (12.0-15.0); Lymphocytes % 18.6 % (15.3-44.8); MCH 31.8 pg (27.0-35.0); MCHC 34.2 g/dL (32.0-36.0); MPV 9.6 fL (7.6-11.3); Monocytes % 6.2 % (3.3-12.3); Neutrophils % 74.6 % (41.7-73.7); Nucleated Red Blood Cells % 0.2 % (0-0); Platelets 74 thou/uL (152-406); RBC Red Blood Cell Count 3.93 M/uL (3.86-4.86)
[2024-09-10 05:37] LABS: Albumin 2.4 g/dL (3.4-5.0); Albumin/Globulin Ratio 0.8 (1.1-1.8); Anion Gap 6.7 mEq/L (5.0-15.0); Bilirubin Total 0.3 mg/dL (0.2-1.0); Globulin 3.1 g/dL (2.3-3.5); Magnesium 2.4 mg/dL (1.6-2.4); Potassium 4.7 mEq/L (3.5-5.1); Protein, Total 5.5 g/dL (6.4-8.2)
[2024-09-10] MEDS ORDERED: ALBUTEROL 2.5 MG/3 ML NEB SOL ONE (06:31)
[2024-09-10] MEDS: NA CHLORIDE 0.9% 500 ML ONE (09:26)
[2024-09-10] MEDS ORDERED: MIDAZOLAM HCL 2 MG/2 ML INJ ONE (09:55)
[2024-09-10] MEDS ORDERED: HEPARIN 10,000 UNIT/10 ML VIAL IV ONE (09:55)
[2024-09-10] MEDS ORDERED: HEPA 1000U/500MLS 2,000 UNIT/1,000 ML BAG IV ONE (09:55)
[2024-09-10] MEDS ORDERED: LIDOCAINE 1% 20 ML MDV ONE ×2 (09:55→10:03)
[2024-09-10] MEDS ORDERED: ATROPINE SULF 1 MG/10 ML SYR IV ONE (09:55)
[2024-09-10] MEDS ORDERED: TICAGRELOR 90 MG TABLET PO ONE (09:56)
[2024-09-10] MEDS ORDERED: CLOPIDOGREL 75 MG TABLET ONE (09:56)
[2024-09-10] MEDS ORDERED: HEPARIN 5000 UNIT/ML 1 ML VIAL ONE (09:56)
[2024-09-10] MEDS ORDERED: FENTANYL CITR 100 MCG/2 ML ONE (09:57)
[2024-09-10] MEDS ORDERED: FLUMAZENIL 0.1 MG/ML (5 mL VIAL) IV ONE (09:57)
[2024-09-10] MEDS ORDERED: NALOXONE 0.4 MG/ML VIAL ONE (09:57)
--- NOTE | 2024-09-10 10:42 | P.PN ---
Date of Service: 09/10/24 Subjective: Breathing okay on room air plan for left heart cath today denies chest pain or worsening SOB. ROS: 10 point ROS as noted above, otherwise negative Physical Exam: GEN: Alert, NAD CV: Regular rate and rhythm, no edema Pulm: mildly labored respirations on room air, +mild wheeze abd: mild distention, soft Neuro: Normal speech, normal affect Problem List: Acute on chronic COPD exacerbation Acute on chronic hypoxic respiratory failure secondary to above Hx CAD s/p RCA PCI (2022) Elevated LFTs; mild Hypertension Hyperlipidemia Hypothyroidism Tobacco use Acute on chronic COPD exacerbation Acute on chronic hypoxic respiratory failure secondary to above on admission, presents with worsening shortness of breath, cough, chest discomfort for ~3 days. Reports flulike symptoms over the past week. Denies nausea/vomiting. Smokes 1 pack/day for 30+ years. Cessation advised States she ran out of her home Trelegy recently CXR (09/05): negative for any acute findings Dr. Fournier, Pulm consulted Blood cx: NGTD continue empiric Augmentin to cover possible infection continue prednisone, duonebs, dulera inhaler Mucinex added for cough 09/07 Protonix added 09/07 given heartburn Hx CAD s/p RCA PCI (2022) chest pain -troponin negative EKG without ischemic changes Cardiology consulted Prior echo (10/16/22): 66% EF, normal wall motion, normal diastolic function, mild MR. Prior LHC (10/16/22): severe distal RCA stenosis 99% s/p PCI. 30% mid LAD stenosis, 20% mid-distal LAD stenosis, 30% mid RCA stenosis. NPO for tentative LHC today Abdominal pain, unclear etiology Elevated LFTs; mild reports increased abdominal pains, with increased swelling, distention that started yesterday denies constipation reports multiple BM since admission, +flatus. KUB (09/08): non-obstructive bowel gas pattern. +mild-moderate colonic stool burden Daily labs. Continue to monitor LFTs CT abdomen (09/09): Stigmata of cirrhosis with splenomegaly mild free ascites. Trace layering right pleural effusion. Hypertension Hyperlipidemia Hypothyroidism confirm home meds, restart as appropriate continue home aspirin, metoprolol, plavix VTE: Lovenox Code: Full Dispo: Home, ~1-2 days Pending LHC, cardiac recs, abd pain improves Time Spent Managing Pts Care (In Minutes): 55
[2024-09-10] MEDS: NICOTINE 21 MG/PAT TD SCH (13:18)
--- NOTE | 2024-09-10 14:13 | P.CNS ---
Date of Consult: 09/10/24 Chief Complaint: SOB History of Present Illness: Patient with PMH of CAD s/p PCI RCA, presented with chest pain, pressure in nature has been going on for a while, denies any other cardiac symptoms. Allergies No Known Allergies Allergy (Verified 01/28/21 14:11) Home medications list reviewed: Yes Home Medications: Aspirin [Aspirin EC 81 MG] 81 mg PO DAILY #30 tab 10/16/22 Atorvastatin Calcium [Lipitor] 40 mg PO BEDTIME 30 Days #30 tab 10/16/22 Clopidogrel Bisulfate [Plavix] 75 mg PO DAILY 30 Days #30 tab 10/16/22 Metoprolol Tartrate [Lopressor] 25 mg PO BID 30 Days #60 tab 10/16/22 Albuterol Sulfate [Proair Respiclick] 2 puff IH Q4HP PRN 09/05/24 Budesonide/Formoterol Fumarate [Symbicort 160-4.5 Mcg Inhaler] 2 puff IH BID 09/05/24 - Past Medical/Surgical History Diabetic: No -: COPD -: "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 -: Hypothyroid -: HTN -: [place] -: CAD -: HLD -: face reconstruction from dog attack as a child -: Stent x1 - Family History Sister Medical History: Heart disease, Diabetes, Cancer Notes: Throat Cancer Mother Medical History: Heart disease Father Medical History: Liver disease Notes: Cirrhosis - Social History Smoking Status: Current every day smoker Alcohol use: No CD- Drugs: No Caffeine use: Yes Place of Residence: Home Review of Systems 10-point ROS is otherwise unremarkable Physical Examination Temp Pulse Resp BP Pulse Ox 97.6 F 76 16 159/90 H 94 09/10/24 13:12 09/10/24 13:12 09/10/24 13:12 09/10/24 13:12 09/10/24 13:12 General: Alert, In no apparent distress HEENT: Atraumatic, PERRLA, Mucous membr. moist/pink, EOMI, Sclerae nonicteric Neck: Supple, 2+ carotid pulse no bruit, No LAD, Without JVD or thyroid abnormal ity Respiratory: Clear to auscultation bilaterally, Normal air movement Cardiovascular: Regular rate/rhythm, Normal S1 S2 Gastrointestinal: Normal bowel sounds, No tenderness Musculoskeletal: No tenderness Integumentary: No rashes Neurological: Normal gait, Normal speech, Normal tone, Normal affect Lymphatics: No axilla or inguinal lymphadenopathy - Problems (1) Chest pain Current Visit: No Status: Acute Plan: Coronary angiogram done that shown mild mid LAD disease, mild ISR of RCA stent. continue ASA, Plavix and Lipitor.
[2024-09-10] MEDS ORDERED: ALBUTEROL 2.5 MG/3 ML NEB SOL NEB PRN (14:30)
[2024-09-10 16:36] VITALS: BP 126/75; TEMP 98.4
[2024-09-10 17:01] VITALS: O2SAT 94
--- NOTE | 2024-09-10 17:05 | P.DS ---
Admission Date: 09/05/24 Discharge Date: 09/10/24 Disposition: ROUTINE DISCHARGE Discharge Condition: GOOD Reason for Admission: SOB Vital Signs/Physical Exam: Temp Pulse Resp BP Pulse Ox 98.4 F 88 16 126/75 94 09/10/24 16:00 09/10/24 16:00 09/10/24 16:00 09/10/24 16:00 09/10/24 16:00 Laboratory Data at Discharge: WBC 4.70 thou/uL (4.3-10.9) 09/10/24 04:40 Hgb 12.5 g/dL (12.0-15.0) 09/10/24 04:40 Hct 36.5 % (36.0-45.0) 09/10/24 04:40 Plt Count 74 thou/uL (152-406) L 09/10/24 04:40 PT 11.7 SECONDS (9.4-12.5) 09/05/24 01: INR 1.12 09/05/24 01:25 Sodium 140 mEq/L (136-145) 09/10/24 04:40 Potassium 4.7 mEq/L (3.5-5.1) 09/10/24 04:40 BUN 16 mg/dL (7-18) 09/10/24 04:40 Creatinine 0.93 mg/dL (0.55-1.02) 09/10/24 04:40 Glucose 164 mg/dL (74-106) H 09/10/24 04:40 Phosphorus 2.4 mg/dL (2.5-4.9) L 09/06/24 07:51 Magnesium 2.4 mg/dL (1.6-2.4) 09/10/24 04:40 Total Bilirubin 0.3 mg/dL (0.2-1.0) 09/10/24 04:40 AST 49 U/L (15-37) H 09/10/24 04:40 ALT 84 U/L (13-56) H 09/10/24 04:40 Alkaline Phosphatase 122 U/L (45-117) H D 09/10/24 04:40 Home Medications: Aspirin [Aspirin EC 81 MG] 81 mg PO DAILY #30 tab 10/16/22 Atorvastatin Calcium [Lipitor] 40 mg PO BEDTIME 30 Days #30 tab 10/16/22 Clopidogrel Bisulfate [Plavix*] 75 mg PO DAILY 30 Days #30 tab 10/16/22 Metoprolol Tartrate [Lopressor*] 25 mg PO BID 30 Days #60 tab 10/16/22 Albuterol Sulfate [Proair Respiclick] 2 puff IH Q4HP PRN 09/05/24 Budesonide/Formoterol Fumarate [Symbicort 160-4.5 Mcg Inhaler] 2 puff IH BID 09/05/24 Amox/Clavulanate [Augmentin 875-125 Tab*] 1 tab PO BID 3 Days #6 tab 09/10/24 predniSONE [Deltasone*] 10 mg PO BID 4 Days #8 tab 09/10/24 New Medications: Amox/Clavulanate [Augmentin 875-125 Tab*] 1 tab PO BID 3 Days #6 tab predniSONE [Deltasone*] 10 mg PO BID 4 Days #8 tab Physician Discharge Instructions: Physician discharge instructions: Patient presented with shortness of breath and wheezing with cough. She was found to be in acute copd exacerbation and had gradual improvement with oxygen, steroids, breathing treatments. Pulmonology, Dr. Fournier, was consulted and prescribed Trelegy. During the hospitalization she developed chest pain, similar to her previous episode when she underwent PCI. Cardiology was consulted. EKG and troponins were negative. She underwent left heart cath on 09/10 and did not require any intervention. She was doing well, breathing more comfortably on room air for >24hrs, afebrile. She also reported some abdominal discomfort and distention. CT abdomen (09/09) noted an appearance / stigmata of cirrhosis with splenomegaly and mild free Ascites. Trace layering right pleural effusion. She did have mild elevationg of her LFTs which improved. AST: 49, ALT: 84 on day of discharge. Medications: augmentin for 3 more days prednisone for 4 more days Trelegy prescribed by Dr. Fournier Follow up: PCP 3-5 days Please call to schedule / confirm appointments CT Abd/pelvis (09/09) LOWER CHEST: Trace layering right pleural effusion. LIVER: Nodular contour with diffuse parenchymal hypoattenuation, suggesting cirrhotic change as well as steatosis. Stable calcific lesion near the gallbladder bed measuring 1 cm. No other suspicious focal lesion. BILIARY SYSTEM: No suspicious abnormalities. SPLEEN: Enlarged, measuring 14.1 cm in long axis. No focal lesion. PANCREAS: No mass, ductal dilation, or chao-pancreatic fluid. ADRENALS: Normal; no mass. KIDNEYS: Normal size and contour. No hydronephrosis. URINARY BLADDER: Unremarkable. GASTROINTESTINAL TRACT: No evidence of free air, bowel obstruction or abscess. Mild free ascites. Sigmoid diverticulosis without evidence of acute diverticulitis. APPENDIX: Normal appendix. LYMPH NODES: No lymphadenopathy. Followup: NONE,NONE [Primary Care Provider] -
--- NOTE | 2024-09-10 22:47 | OP ---
Date of Procedure: 09/10/2024 Surgeon: Jamaal Khan Procedure Performed: Selective coronary angiogram. Indication For Procedure: Unstable angina. Complications: None. Estimated Blood Loss: Less than 50 cc. Access: Right radial, closed by TR band. Sedation Time: 20 minutes with 2 of Versed and 50 of fentanyl. Description Of Procedure: After risks, benefits, and alternatives were explained to the patient, the patient agreed to proceed with procedure and signed informed consent. The patient was brought back to the research laboratory technician, prepped and draped in a sterile fashion. Time-out was performed. Sedation was admi nistered. Right radial access was obtained using ultrasound-guided micropuncture technique and 6-[facility] JL4 catheter was advanced over a J-wire to the aortic root. Selective angiogram was done using t he same catheter. At the end of the procedure, catheter was removed over the J-wire. Sheath was rem ирина. TR band was applied. Hemostasis achieved. The patient was moved back to recovery in stable c ondition. Findings: 1.Left main normal. 2.LAD, proximal mild luminal irregularities with mid diffuse 30% disease, and mild luminal irregular ities. 3.Left circ, mild luminal irregularities. 4.RCA proximal mild luminal irregularities with mid 20% disease and distal stent with diffuse 30% IS R, then RPDA with mild luminal irregularities. Assessment And Plan: 1.Mild mid LAD disease with mild distal RCA stent in-stent restenosis. 2.The plan is to continue the same management. QUINCY/BRITTANY Voice ID: [id number] Report ID: [id number]
[2024-09-11] MEDS ORDERED: ENOXAPARIN 40 MG/0.4 ML SQ SCH (09:00)
== END 2024-09-10 17:32 | disposition home or self-care (01) | DRG 190 ==
LOC: ER 00:07 → ERHOLD 03:34 → 2ND 06:02
PROVIDERS: ADMIT Family Medicine; ATTEND Hospitalist
PROC: 4A023N7 Measurement of Cardiac Sampling and Pressure, Left Heart, Percutaneous Approach (ICD-10-PCS; principal; 2024-09-10)
PROC: B2111ZZ Fluoroscopy of Multiple Coronary Arteries using Low Osmolar Contrast (ICD-10-PCS; 2024-09-10)
DX: J44.1 Chronic obstructive pulmonary disease with (acute) exacerbation (principal); J96.21 Acute and chronic respiratory failure with hypoxia; R18.8 Other ascites; T82.855A Stenosis of coronary artery stent, initial encounter; R16.1 Splenomegaly, not elsewhere classified; J06.9 Acute upper respiratory infection, unspecified; E78.5 Hyperlipidemia, unspecified; E03.9 Hypothyroidism, unspecified; I10 Essential (primary) hypertension; K74.60 Unspecified cirrhosis of liver; I25.10 Atherosclerotic heart disease of native coronary artery without angina pectoris; I25.2 Old myocardial infarction; R73.9 Hyperglycemia, unspecified; F17.210 Nicotine dependence, cigarettes, uncomplicated; Z95.5 Presence of coronary angioplasty implant and graft; Z79.82 Long term (current) use of aspirin; Z79.02 Long term (current) use of antithrombotics/antiplatelets; Z79.899 Other long term (current) drug therapy
CPT/HCPCS: 36415; 71045; 74018; 74177; 76937; 80048; 80053; 80076; 82947; 83605; 83735; 83880; 84100; 84439; 84443; 84484; 85025; 85610; 86140; 87040; 87804; 93005; 93458; 94640; 94760; 96365; 96366; 96367; 96375; 99152; 99285; C1893; J0461; J1644; J1650; J2003; J2250; J2310; J2405; J2919; J3010; J3535; J7030; J7040; J7050; J7512; J7613; J7644; Q0169; Q9966; Q9967